=== PATIENT | female | born 1950 | race Two or more races ===

== ENCOUNTER → 2016-05-29 | Outpatient (CLI) | payer MEDICARE ==
[2016-05-29 10:01] LABS: Basophils # (auto) 0.1 uL; Basophils % (auto) 0.6 % (0.0-2.0); Eosinophils # (auto) 0.4 uL; Eosinophils % (auto) 4.7 % (0.0-7.0); Hematocrit 40.7 % (36.0-46.0); Hemoglobin 13.4 g/dL (12.2-16.2); Lymphocytes % (auto) 23.2 % (10.0-50.0); Mean Corpuscular Hemoglobin 29.1 pg (28.0-32.0); Mean Corpuscular Volume 88.2 fL (80.0-100.0); Mean Platelet Volume 8.7 fL (7.4-10.4); Monocytes # (auto) 0.7 uL; Monocytes % (auto) 7.9 % (0.0-12.0); Neutrophils # (auto) 5.4 uL; Neutrophils % (auto) 63.6 % (37.0-80.0); Platelet Count (auto) 311 10^3/uL (140-450); Red Cell Distribution Width 14.6 % (11.6-16.0); White Blood Cell 8.4 10^3/uL (4.4-10.8)
[2016-05-29 10:10] LABS: Albumin 3.6 g/dL (3.4-5.0); BUN/Creatinine Ratio 16.7; Bilirubin, Total 0.4 mg/dL (0.2-1.0); Calcium 8.9 mg/dL (8.5-10.1); Potassium 3.4 mmol/L (3.5-5.1); Total Protein 7.7 g/dL (6.4-8.2)
[2016-05-29 10:37] LABS: Urine Bilirubin Negative (Negative); Urine Blood Negative /uL (Negative); Urine Color Yellow (Yellow); Urine Glucose Normal (Normal); Urine Ketone Negative (Negative); Urine Mucus FEW (None Seen); Urine Nitrite Negative (Negative); Urine RBC <1 /hpf (0 - 4); Urine Squamous Epithelial Cell FEW /hpf (<5); Urine Urobilinogen Normal (Negative)
== END | disposition home or self-care (01) ==
LOC: LAB 08:32
PROVIDERS: ATTEND Internal Medicine
DX: E78.00 Pure hypercholesterolemia, unspecified (principal); I10 Essential (primary) hypertension; N18.3 Chronic kidney disease, stage 3 (moderate); Z00.00 Encounter for general adult medical examination without abnormal findings
CPT/HCPCS: 36415; 80053; 80061; 81001; 83615; 84443; 85025

== ENCOUNTER → 2016-06-07 | Outpatient (CLI) | payer MEDICARE | END | disposition home or self-care (01) | LOC: LAB 17:00 | PROVIDERS: ATTEND Internal Medicine | DX: Z00.00 Encounter for general adult medical examination without abnormal findings (principal); E78.00 Pure hypercholesterolemia, unspecified; I10 Essential (primary) hypertension; N18.3 Chronic kidney disease, stage 3 (moderate) | CPT/HCPCS: 82270 ==

== ENCOUNTER 2020-02-01 11:28 | Inpatient (IN) | payer MEDICARE, OTHER ==
[~2020-02-01] VITALS: Ht 162.6 cm; Wt 61.7 kg
[2020-02-01] MEDS ORDERED: methylPREDNISolone SOD SUCC 125 MG/2 ML VL IV ONE (11:45)
[2020-02-01 15:09] LABS: Basophils # (auto) 0 10 ^3/uL (0-0.2); Basophils % (auto) 0.1 % (0.0-2.0); Eosinophils # (auto) 0 10 ^3/uL (0-0.8); Hematocrit 40.6 % (36.0-46.0); Hemoglobin 13.6 g/dL (12.2-16.2); Lymphocytes # (auto) 0.5 10 ^3/uL (0.4-5.4); Lymphocytes % (auto) 6.1 % (10.0-50.0); Mean Corpuscular Hemoglobin 29.6 pg (28.0-32.0); Mean Corpuscular Hgb Conc. 33.6 g/dL (32.0-36.0); Mean Corpuscular Volume 88.2 fL (80.0-100.0); Monocytes # (auto) 0.3 10 ^3/uL (0-1.3); Monocytes % (auto) 4.1 % (0.0-12.0); Neutrophils % (auto) 89.7 % (37.0-80.0); Nucleated Red Blood Cells % 0.1 %; Platelet Count (auto) 213 10^3/uL (140-450); Red Cell Distribution Width 13.9 % (11.8-14.3); White Blood Cell 7.9 10^3/uL (4.4-10.8)
[2020-02-01 15:37] LABS: Albumin 3.1 g/dL (3.4-5.0); BUN/Creatinine Ratio 12.5; Bilirubin, Total 0.4 mg/dL (0.2-1.0); CRP High Sensitivity 5.98 mg/dL (< 0.3); Calcium 8.2 mg/dL (8.5-10.1); Potassium 3.8 mmol/L (3.5-5.1); Total Protein 7.7 g/dL (6.4-8.2)
[2020-02-02] MEDS ORDERED: MORPHINE SULF INJ 2 MG/ML SYRINGE 1ML IV PRN (00:15)
[2020-02-02] MEDS ORDERED: ALBUTEROL SULF 2.5 MG/0.5ML(0.5%) NEB SOLN NEB PRN (00:15)
[2020-02-02] MEDS ORDERED: ONDANSETRON HCL 4 MG/2 ML VIAL IV PRN (00:15)
[2020-02-02] MEDS ORDERED: hydrALAZINE HCL 20 MG/ML VL IV PRN (00:15)
[2020-02-02] MEDS ORDERED: IOHEXOL 350 MG/ML 100ML IJ ONE (00:34)
[2020-02-02 07:46] LABS: Basophils # (auto) 0 10 ^3/uL (0-0.2); Basophils % (auto) 0.1 % (0.0-2.0); Eosinophils # (auto) 0 10 ^3/uL (0-0.8); Hematocrit 41.3 % (36.0-46.0); Hemoglobin 13.9 g/dL (12.2-16.2); Lymphocytes # (auto) 0.8 10 ^3/uL (0.4-5.4); Lymphocytes % (auto) 17.2 % (10.0-50.0); Mean Corpuscular Hemoglobin 29.3 pg (28.0-32.0); Mean Corpuscular Hgb Conc. 33.6 g/dL (32.0-36.0); Mean Corpuscular Volume 87.2 fL (80.0-100.0); Monocytes # (auto) 0.4 10 ^3/uL (0-1.3); Monocytes % (auto) 9.2 % (0.0-12.0); Neutrophils # (auto) 3.4 10 ^3/uL (1.6-8.6); Neutrophils % (auto) 73.5 % (37.0-80.0); Nucleated Red Blood Cells % 0.1 %; Platelet Count (auto) 221 10^3/uL (140-450); Red Blood Cells 4.74 10^6/uL (4.0-5.20); Red Cell Distribution Width 13.9 % (11.8-14.3); White Blood Cell 4.6 10^3/uL (4.4-10.8)
[2020-02-02 08:07] LABS: Albumin 2.9 g/dL (3.4-5.0); BUN/Creatinine Ratio 21.3; Calcium 9.1 mg/dL (8.5-10.1); Potassium 4.1 mmol/L (3.5-5.1)
[2020-02-02 08:11] LABS: Bilirubin, Total 0.3 mg/dL (0.2-1.0); Total Protein 7.5 g/dL (6.4-8.2)
[2020-02-02] MEDS: ASCORBIC ACID 1,000 MG TAB PO SCH (09:18)
[2020-02-02] MEDS: ENOXAPARIN SOD 40 MG/0.4 ML SYRINGE SC SCH (09:18)
[2020-02-02] MEDS: ZINC SULFATE 220mg CAP or TAB PO SCH (09:18)
[2020-02-02] MEDS: DexAMETHasone SOD PHOS 10MG/1ML VIAL INJ IV SCH ×2 (09:18→21:45)
[2020-02-02] MEDS: ASPirin-EC 81 mg tab PO SCH (09:18)
[2020-02-02] MEDS: CHOLECALCIFEROL (VITD3) 2,000 UNIT CAP PO SCH (09:18)
[2020-02-02] MEDS: cefTRIAXone 1GM/50ML D5W 50 ML IV SCH (09:19)
[2020-02-02] MEDS: AZITHROMYCIN 500MG/ 250ML 250 ML IV SCH (09:19)
[2020-02-02 09:28] VITALS: BP 137/65
[2020-02-02] MEDS ORDERED: [UNRECOGNIZED DRUG - REMARK] PO SCH (10:00)
[2020-02-02] MEDS: ALBUTEROL SULF HFA 90MCG INH 200DOSE IN SCH ×2 (14:36→21:19)
[2020-02-02] MEDS ORDERED: REMDESIVIR 200 MG in NS 210ml LOADING DOSE ADULT IV ONE (17:00)
[2020-02-02] MEDS: ATORVASTATIN 20 MG TAB PO SCH (21:45)
[2020-02-03] VITALS (14 sets, daily range): BP systolic 115–137; BP diastolic 64–90
[2020-02-03] MEDS ORDERED: ATEN25TA PO (02:36)
[2020-02-03] MEDS ORDERED: ATOR10TA52 PO (02:36)
--- NOTE | 2020-02-03 02:50 | NUR ---
ADMITTED PATIENT FROM THE ER, AAOX4. NO DISTRESS NOTED. AFEBRILE. MILD SOB NOTED AT REST. DENIES ANY PAIN NOW. MILD BLE WEAKNESS NOTED. ORIENTATION GIVEN. ROUTINE ADMISSION DONE BY BOUBACAR TAN. POCS DISCUSSED WITH PATIENT AND SHOWED UNDERSTANDING. BED KEPT ON LOWEST POSITION AND SIDE RAILS UP. CALL LIGHT/ TABLE IN REACH. KEPT COMFORTABLE.
[2020-02-03] MEDS ORDERED: INFLUENZA QUAD 2020-2021 0.5 ML SYRG IM ONE (03:30)
--- NOTE | 2020-02-03 05:00 | NUR ---
PATIENT VERIFIED THAT INFORMED CONSENT WAS OBTAINED BY MD CRESPO. BENEFITS AND CONSEQUENCES OF RECEIVING CONVALESCENT EXPLAINED TO PATIENT AND SHOWED UNDERSTANDING. CONVALESCENT PLASMA PROTOCOL COMPLETED PRIOR TO TRANSFUSION. SPOKE WITH BLOOD BANK, RE: CONVALESCENT PLASMA TRANSFUSION.
--- NOTE | 2020-02-03 05:35 | NUR ---
CONVALESCENT PLASMA TRANSFUSION STARTED. HOSPITAL POLICY OBSERVED. EDUCATION REINFORCED TO THE PATIENT. WILL KEEP AN EYE ON PATIENT.
[2020-02-03] MEDS: ALBUTEROL SULF HFA 90MCG INH 200DOSE IN SCH ×3 (06:58→21:45)
--- NOTE | 2020-02-03 07:50 | NUR ---
CONVALESCENT PLASMA TRANSFUSION ENDED. V/S WNL, NO S/S OF DISTRESS, PATIENT TOLERATED WELL.
[2020-02-03 09:00] LABS: Calcium 8.8 mg/dL (8.5-10.1); Potassium 3.4 mmol/L (3.5-5.1)
[2020-02-03 09:08] LABS: BUN/Creatinine Ratio 31.1; Bilirubin, Total 0.3 mg/dL (0.2-1.0); CRP High Sensitivity 2.51 mg/dL (< 0.3); Total Protein 7.3 g/dL (6.4-8.2)
[2020-02-03] MEDS: AZITHROMYCIN 500MG/ 250ML 250 ML IV SCH (10:00)
[2020-02-03 10:08] LABS: Basophils # (auto) 0 10 ^3/uL (0-0.2); Basophils % (auto) 0.1 % (0.0-2.0); Eosinophils # (auto) 0 10 ^3/uL (0-0.8); Hematocrit 39.4 % (36.0-46.0); Lymphocytes # (auto) 0.8 10 ^3/uL (0.4-5.4); Mean Corpuscular Hemoglobin 28.8 pg (28.0-32.0); Mean Corpuscular Hgb Conc. 32.9 g/dL (32.0-36.0); Mean Corpuscular Volume 87.6 fL (80.0-100.0); Monocytes % (auto) 6.6 % (0.0-12.0); Neutrophils # (auto) 13.3 10 ^3/uL (1.6-8.6); Neutrophils % (auto) 88.3 % (37.0-80.0); Nucleated Red Blood Cells % 0.1 %; Platelet Count (auto) 279 10^3/uL (140-450); White Blood Cell 15.1 10^3/uL (4.4-10.8)
[2020-02-03] MEDS: DexAMETHasone SOD PHOS 10MG/1ML VIAL INJ IV SCH ×2 (10:47→21:59)
[2020-02-03] MEDS: ASPirin-EC 81 mg tab PO SCH (10:49)
[2020-02-03] MEDS: ENOXAPARIN SOD 40 MG/0.4 ML SYRINGE SC SCH (10:49)
[2020-02-03] MEDS: CHOLECALCIFEROL (VITD3) 2,000 UNIT CAP PO SCH (10:49)
[2020-02-03] MEDS: ZINC SULFATE 220mg CAP or TAB PO SCH (10:49)
[2020-02-03] MEDS: ASCORBIC ACID 1,000 MG TAB PO SCH (10:49)
[2020-02-03] MEDS: cefTRIAXone 1GM/50ML D5W 50 ML IV SCH (10:50)
[2020-02-03] MEDS: REMDESIVIR 100mg in NS 230ml DAILYx4DAYS (NO VENT) IV SCH (17:21)
--- NOTE | 2020-02-03 17:30 | NUR ---
Patient home O2 delivered to bedside.
--- NOTE | 2020-02-03 17:36 | NUR ---
PRE REMDESIVIR V/S 98.2 TEMP 80 HR 20 RR 94% 134/87 B/P 15 REMDESIVIR V/S 128/74 B/P 75 HR 97.6 TEMP 97% RR19 NO S/S OF DISTRESS NOTED.
--- NOTE | 2020-02-03 18:25 | NUR ---
POST REMDESIVIR 129/79 66 HR 95% TEMP 97.9 RR 19 NO S/S OF DISTRESS NOTED.
--- NOTE | 2020-02-03 19:30 | NUR ---
remdesivir v/s post infusion:hr-82,b/p-135/77,o2-95%,temp-98.6,rr-18 Addendum: 02/04/20 at 0726 by MAXIMINO PALMER RN remdesivir v/s 1 hour post infusion:hr-82,b/p-135/77,o2-95%,temp-98.6,rr-18
[2020-02-03] MEDS: ATORVASTATIN 20 MG TAB PO SCH (21:59)
[2020-02-04 05:00] VITALS: BP 140/84
[2020-02-04 05:52] LABS: Basophils # (auto) 0 10 ^3/uL (0-0.2); Basophils % (auto) 0.2 % (0.0-2.0); Eosinophils # (auto) 0 10 ^3/uL (0-0.8); Hematocrit 37.6 % (36.0-46.0); Hemoglobin 12.4 g/dL (12.2-16.2); Lymphocytes # (auto) 0.5 10 ^3/uL (0.4-5.4); Lymphocytes % (auto) 3.8 % (10.0-50.0); Mean Corpuscular Hemoglobin 28.9 pg (28.0-32.0); Mean Corpuscular Hgb Conc. 33.1 g/dL (32.0-36.0); Mean Corpuscular Volume 87.5 fL (80.0-100.0); Monocytes # (auto) 0.8 10 ^3/uL (0-1.3); Monocytes % (auto) 5.6 % (0.0-12.0); Neutrophils # (auto) 12.6 10 ^3/uL (1.6-8.6); Neutrophils % (auto) 90.4 % (37.0-80.0); Platelet Count (auto) 268 10^3/uL (140-450); Red Blood Cells 4.29 10^6/uL (4.0-5.20); Red Cell Distribution Width 13.9 % (11.8-14.3)
[2020-02-04 06:12] LABS: Albumin 2.7 g/dL (3.4-5.0); Calcium 8.3 mg/dL (8.5-10.1); Potassium 3.5 mmol/L (3.5-5.1)
[2020-02-04 06:20] LABS: BUN/Creatinine Ratio 38.6; Bilirubin, Total 0.4 mg/dL (0.2-1.0); CRP High Sensitivity 1.39 mg/dL (< 0.3); Total Protein 6.5 g/dL (6.4-8.2)
[2020-02-04] MEDS: ALBUTEROL SULF HFA 90MCG INH 200DOSE IN SCH ×3 (06:30→22:01)
--- NOTE | 2020-02-04 06:37 | NUR ---
END OF SHIFT NOTES WILL ENDORSE CARE TO DAY SHIFT RN,PT A0X4, NO S/S OF DISTRESS OR SOB
[2020-02-04 08:57] VITALS: BP 147/84
[2020-02-04] MEDS: ZINC SULFATE 220mg CAP or TAB PO SCH (09:59)
[2020-02-04] MEDS: ASPirin-EC 81 mg tab PO SCH (09:59)
[2020-02-04] MEDS: ENOXAPARIN SOD 40 MG/0.4 ML SYRINGE SC SCH (09:59)
[2020-02-04] MEDS: cefTRIAXone 1GM/50ML D5W 50 ML IV SCH (10:00)
[2020-02-04] MEDS: CHOLECALCIFEROL (VITD3) 2,000 UNIT CAP PO SCH (10:00)
[2020-02-04] MEDS: ASCORBIC ACID 1,000 MG TAB PO SCH (10:00)
[2020-02-04] MEDS: DexAMETHasone SOD PHOS 10MG/1ML VIAL INJ IV SCH ×2 (10:18→22:40)
[2020-02-04] MEDS: AZITHROMYCIN 500MG/ 250ML 250 ML IV SCH (11:00)
[2020-02-04 13:00] VITALS: BP 144/78
[2020-02-04 17:00] VITALS: BP 138/75
[2020-02-04] MEDS: REMDESIVIR 100mg in NS 230ml DAILYx4DAYS (NO VENT) IV SCH (17:29)
--- NOTE | 2020-02-04 17:45 | NUR ---
1728-Pre Remdesivir v/s 98.1 temp 68 hr 18 rr 93% 138/75 1745-15 -Minute Remdesivir v/s 132/77 b/p 68 hr 18 rr 98.2 temp 96%
--- NOTE | 2020-02-04 18:30 | NUR ---
POST REMDESIVIR V/S 120/72 B/P 98.0 TEMP 95% 77HR 16 RR NO S/S OF DISTRESS NOTED.
--- NOTE | 2020-02-04 19:30 | NUR ---
Remdesivir v/s 1 hour post infusion:hr-82,b/p-142/84,o2-93%,temp-97.8,rr-20
[2020-02-04 21:47] VITALS: BP 142/84
[2020-02-04] MEDS: ATORVASTATIN 20 MG TAB PO SCH (22:40)
[2020-02-05] VITALS (7 sets, daily range): BP systolic 130–147; BP diastolic 73–83
--- NOTE | 2020-02-05 06:38 | NUR ---
END OF SHIFT NOTES WILL ENDORSE CARE TO DAY SHIFT RN,PT A0X4, NO S/S OF DISTRESS OR SOB
[2020-02-05] MEDS: ALBUTEROL SULF HFA 90MCG INH 200DOSE IN SCH ×3 (07:15→22:35)
[2020-02-05] MEDS: DexAMETHasone SOD PHOS 10MG/1ML VIAL INJ IV SCH ×2 (09:21→20:55)
[2020-02-05] MEDS: cefTRIAXone 1GM/50ML D5W 50 ML IV SCH (09:21)
[2020-02-05] MEDS: ENOXAPARIN SOD 40 MG/0.4 ML SYRINGE SC SCH (09:22)
[2020-02-05] MEDS: ASCORBIC ACID 1,000 MG TAB PO SCH (09:22)
[2020-02-05] MEDS: ASPirin-EC 81 mg tab PO SCH (09:22)
[2020-02-05] MEDS: AZITHROMYCIN 500MG/ 250ML 250 ML IV SCH (10:17)
[2020-02-05] MEDS: CHOLECALCIFEROL (VITD3) 2,000 UNIT CAP PO SCH (10:17)
[2020-02-05] MEDS: ZINC SULFATE 220mg CAP or TAB PO SCH (10:17)
--- NOTE | 2020-02-05 10:43 | NUR ---
Nutrition Assessment Notes Please refer to link for full assessment notes. Est Energy needs: 5636-3829 kcals (20-23 kcal/kgBW) Est Protein needs: 62-68 gms/day (1.0-1.1 gm/kgBW) Will continue to monitor and reassess prn. Addendum: 02/05/20 at [address] Amended: Links added.
[2020-02-05] MEDS: REMDESIVIR 100mg in NS 230ml DAILYx4DAYS (NO VENT) IV SCH (16:56)
--- NOTE | 2020-02-05 16:56 | NUR ---
REMDESIVIR PRE REMDESIVIR V/S: 97.8 TEMP 76 HR 20 RR 95% 130/76 B/P 15 MINUTE REMDESIVIR V/S: 97.7 TEMP 69 HR 17 RR 95% 140/80 B/P NO S/S OF DISTRESS NOTED.
--- NOTE | 2020-02-05 18:10 | NUR ---
POST REMDESIVIR V/S 98.2 TEMP 69 HR 20 RR 96% 134/73 NO S/S OF DISTRESS NOTED
--- NOTE | 2020-02-05 19:06 | NUR ---
1 HR POST REMDESIVIR VS 97.8 TEMP 71 HR 20 RR 96% 137/81
[2020-02-05] MEDS: ATORVASTATIN 20 MG TAB PO SCH (20:54)
[2020-02-06 05:14] VITALS: BP 146/83
[2020-02-06] MEDS: ALBUTEROL SULF HFA 90MCG INH 200DOSE IN SCH ×2 (06:24→14:03)
--- NOTE | 2020-02-06 06:35 | NUR ---
END OF SHIFT NOTES WILL ENDORSE CARE TO DAY SHIFT RN,PT A0X4, NO S/S OF DISTRESS OR SOB
[2020-02-06 07:46] LABS: Basophils # (auto) 0 10 ^3/uL (0-0.2); Basophils % (auto) 0.1 % (0.0-2.0); Eosinophils # (auto) 0 10 ^3/uL (0-0.8); Hematocrit 35.3 % (36.0-46.0); Hemoglobin 11.9 g/dL (12.2-16.2); Lymphocytes # (auto) 0.5 10 ^3/uL (0.4-5.4); Lymphocytes % (auto) 5.4 % (10.0-50.0); Mean Corpuscular Hemoglobin 29.1 pg (28.0-32.0); Mean Corpuscular Hgb Conc. 33.7 g/dL (32.0-36.0); Mean Corpuscular Volume 86.3 fL (80.0-100.0); Monocytes # (auto) 0.7 10 ^3/uL (0-1.3); Monocytes % (auto) 7.5 % (0.0-12.0); Neutrophils # (auto) 8.7 10 ^3/uL (1.6-8.6); Platelet Count (auto) 282 10^3/uL (140-450); Red Blood Cells 4.09 10^6/uL (4.0-5.20); Red Cell Distribution Width 13.8 % (11.8-14.3)
[2020-02-06 08:00] VITALS: BP 150/78
[2020-02-06 08:06] LABS: Albumin 2.6 g/dL (3.4-5.0); BUN/Creatinine Ratio 37.2; Bilirubin, Total 0.3 mg/dL (0.2-1.0); Calcium 8.3 mg/dL (8.5-10.1); Potassium 3.7 mmol/L (3.5-5.1); Total Protein 6.1 g/dL (6.4-8.2)
[2020-02-06 09:00] VITALS: BP 150/71
[2020-02-06] MEDS: CHOLECALCIFEROL (VITD3) 2,000 UNIT CAP PO SCH (09:50)
[2020-02-06] MEDS: cefTRIAXone 1GM/50ML D5W 50 ML IV SCH (09:50)
[2020-02-06] MEDS: DexAMETHasone SOD PHOS 10MG/1ML VIAL INJ IV SCH (09:50)
[2020-02-06] MEDS: ZINC SULFATE 220mg CAP or TAB PO SCH (09:50)
[2020-02-06] MEDS: ASCORBIC ACID 1,000 MG TAB PO SCH (09:50)
[2020-02-06] MEDS: ASPirin-EC 81 mg tab PO SCH (09:50)
[2020-02-06] MEDS: ENOXAPARIN SOD 40 MG/0.4 ML SYRINGE SC SCH (09:51)
[2020-02-06] MEDS: AZITHROMYCIN 500MG/ 250ML 250 ML IV SCH (11:11)
[2020-02-06 13:00] VITALS: BP 152/88
[2020-02-06 14:21] VITALS: BP 145/86
[2020-02-06] MEDS: REMDESIVIR 100mg in NS 230ml DAILYx4DAYS (NO VENT) IV SCH (15:11)
--- NOTE | 2020-02-06 15:11 | NUR ---
REMDESIVIR PRE REMDESIVIR V/S: 97.9 TEMP 78 HR 20 RR 94% 153/86 B/P 15 MINUTE REMDESIVIR V/S: 97.7 TEMP 77 HR 19 RR 95% 150/86 B/P NO S/S OF DISTRESS NOTED.
--- NOTE | 2020-02-06 16:19 | NUR ---
POST REMDESIVIR V/S 97.9 TEMP 80 HR 20 RR 96% 150/91 NO S/S OF DISTRESS NOTED
[2020-02-06 16:44] VITALS: BP 145/76
[2020-02-06] MEDS ORDERED: INFLUENZA QUAD 2020-2021 0.5 ML SYRG IM ONE (17:16)
--- NOTE | 2020-02-06 17:19 | NUR ---
1 HOUR POST REMDESIVIR VITALS 97.9 TEMP 79 HR 19 RR 95% 146/82
--- NOTE | 2020-02-06 17:30 | NUR ---
Discharge instructions given as ordered. Encourage to follow up with PMD as instructed. Unable to schedule appointment due to weekend, patient provided with phone number to call for appointment. All questions and concerns addressed. Patient verbalized understanding. Medication reconciliation form completed and copy given to patient. Home 02 delivered bedside and sent home with patient. No home medications held in Pharmacy, and needed vaccines not given as told by charge out clerk to hold flu vaccine when covid positive. IV removed with catheter intact and pressure dressing applied. Telemetry unit returned to ICU. Patient taken to vehicle via wheelchair with all personal belongings, accompanied by staff member. No distress noted at time of departure.
== END 2020-02-06 17:30 | disposition home health service (06) | DRG 177 ==
LOC: EDBD 11:28 → ER 11:28 → TELE 11:29 → TELE-CENTR 02-03 02:28
PROVIDERS: ADMIT Hospitalist; ATTEND Hospitalist
PROC: XW033E5 Introduction of Remdesivir Anti-infective into Peripheral Vein, Percutaneous Approach, New Technology Group 5 (ICD-10-PCS; principal; 2020-02-02)
PROC: XW13325 Transfusion of Convalescent Plasma (Nonautologous) into Peripheral Vein, Percutaneous Approach, New Technology Group 5 (ICD-10-PCS; 2020-02-03)
DX: U07.1 COVID-19 (principal); J96.01 Acute respiratory failure with hypoxia; J12.89 Other viral pneumonia; N17.0 Acute kidney failure with tubular necrosis; I24.8 Other forms of acute ischemic heart disease; E78.5 Hyperlipidemia, unspecified; N18.9 Chronic kidney disease, unspecified; I12.9 Hypertensive chronic kidney disease with stage 1 through stage 4 chronic kidney disease, or unspecified chronic kidney disease; R79.89 Other specified abnormal findings of blood chemistry; Z90.710 Acquired absence of both cervix and uterus; Z79.899 Other long term (current) drug therapy
CPT/HCPCS: 36415; 71045; 71275; 80053; 82728; 83605; 83615; 84484; 85025; 85379; 86141; 86850; 86900; 86901; 87040; 87426; 94640; 97163; G0378; J0696; J1100

== ENCOUNTER 2024-02-14 06:09 | Inpatient (IN) | payer OTHER ==
[2024-02-14] VITALS (9 sets, daily range): BP systolic 117–136; BP diastolic 53–78; PULSE 60–67; RESP 16–18; TEMP 97.5–98.4; O2SAT 95–98
[~2024-02-14] VITALS: Ht 162.6 cm; Wt 67.0 kg
[~2024-02-14 06:09] MED LIST: ATEN25TA PO; ATOR10TA52 PO; LEVO-848 PO
[2024-02-14] MEDS ORDERED: HEPARIN SODIUM (PORCINE) 5000 UNITS/ML 1ML VIAL ONE ×2 (06:16→07:01)
[2024-02-14] MEDS: HEPARIN SODIUM (PORCINE) 5000 UNITS/ML 1ML VIAL SC ONE (07:00)
[2024-02-14] MEDS ORDERED: fentaNYL CITRATE 100 MCG/2 ML VL ONE (07:27)
[2024-02-14] MEDS ORDERED: GLYCOPYRROLATE 0.2 MG/ML 1ML VIAL ONE (07:27)
[2024-02-14] MEDS ORDERED: DexAMETHasone SOD PHOS 10MG/1ML VIAL INJ ONE (07:27)
[2024-02-14] MEDS ORDERED: HYDROmorphone HCL 2 MG/ML VL/or syr ONE (07:27)
[2024-02-14] MEDS ORDERED: ROCURONIUM 10MG/ML 10ML VIAL IV ONE (07:27)
[2024-02-14] MEDS ORDERED: MIDAZOLAM HCL 2MG/2ML 2ml VIAL (1mg/ml) ONE (07:27)
[2024-02-14] MEDS ORDERED: ONDANSETRON HCL 4 MG/2 ML VIAL ONE (07:27)
[2024-02-14] MEDS ORDERED: LIDOCAINE 2% (LOCAL ANESTH.) PF 5ml SDV ONE (07:27)
[2024-02-14] MEDS ORDERED: PROPOFOL 10 MG/ML 20 ML IV ONE (07:27)
[2024-02-14] MEDS ORDERED: ONDANSETRON HCL 4 MG/2 ML VIAL IV ONE (07:30)
[2024-02-14] MEDS: cefOXitin 2GM/100ML 100 ML IV ONE (07:41)
[2024-02-14] MEDS: BUPIVACAINE 0.25% INJ 50ML VIAL ONE (07:55)
[2024-02-14] MEDS: LIDOCAINE 1% HCL (LOCAL ANESTH.) INJ 20ML MDV ONE (07:55)
[2024-02-14] MEDS ORDERED: SUGAMMADEX 200mg/2ml Vial (100MG/ML) IV ONE (08:32)
--- NOTE | 2024-02-14 10:14 | DVHOP ---
DATE OF SURGERY: 02/14/2024 PREOPERATIVE DIAGNOSIS: Perforated appendicitis. POSTOPERATIVE DIAGNOSIS: Perforated appendicitis. PROCEDURE: Laparoscopic lysis of adhesions, reduction of internal hernia and appendectomy. SURGEON: Clive Yoo MD ELECTRICIAN MAINTENANCE: None. ANESTHESIOLOGIST: Dr. Mckeon. ANESTHESIA: General by means of endotracheal intubation. INTRAOPERATIVE FINDINGS: Thickened dilated appendix with a decompressed portion/space. Found numerous significant adhesions involving the appendix against the surface of the bladder as well as small intestine adherent to the distal aspect of the appendix causing an internal hernia. ESTIMATED BLOOD LOSS: Minimal. INTRAVENOUS FLUIDS: Per anesthesia charting. Urine output not recorded given Fagan catheter was not inserted. DRAINS: A 19 Tony drain. IMPLANTS: Endo-CB mckayla. SPECIMEN: Appendix. COMPLICATIONS: None, other than difficult procedure secondary to above-mentioned intraoperative findings adding complexity as well as time to an otherwise routine procedure. DISPOSITION: Procedure is well tolerated and transferred to recovery room in stable condition. INDICATION FOR PROCEDURE: Ms. Hogue is a 74-year-old female who presented to [facility] secondary to abdominal pain. She was diagnosed with perforated appendicitis. The abscess was not amenable for drainage. Therefore, she was treated with intravenous antibiotic therapy. She successfully responded to intravenous antibiotic therapy. Followup CT scan as outpatient demonstrated complete resolution of inflammatory changes or abscesses. Therefore, she was electively scheduled for an interval laparoscopic appendectomy, possible laparotomy if required. The procedure, risks and benefits were explained in a detailed and extensive fashion. She was made aware of potential complications such as bleeding, infection, injury to internal organs, blood vessels and/or nerves chronic pain, future bowel obstructions as well as other complications. All questions were answered. She understood and agreed to proceed. DESCRIPTION OF PROCEDURE: The patient was taken to the operating room. She was placed in the dorsal decubitus position on the operating table. Once adequate anesthesia was achieved, the left arm was tucked to her side, paying careful attention on providing adequate positioning as well as padding to prevent any potential injuries. The abdomen and pelvis were draped in the usual sterile fashion. She received prophylactic antibiotics as well as prophylactic heparin. My attention was directed towards the periumbilical region where local anesthesia consisting of 1% lidocaine, 0.25% Marcaine was infiltrated. The abdominal wall was retracted anteriorly by means of towel clamps and a Veress needle was inserted into the abdominal cavity. Pneumoperitoneum of 15 mmHg was achieved. At this time, attention was directed to the epigastric region where local anesthesia was injected in the area of interest. An 12 mm incision was made and a 12 mm trocar was placed. A 5 mm 30-degree laparoscope was inserted into the abdominal cavity. A thorough survey of the abdominal cavity did not reveal any evidence of injury or bleeding upon entry. The Veress needle was removed under direct laparoscopic visualization. My attention was directed towards the left side of the abdomen where 5 mm trocars x2 were placed with preemptive local anesthesia as well as under direct laparoscopic visualization. At this time, the patient was placed in the reverse Trendelenburg and airplaned towards the left side exposing the right lower quadrant region. The patient was noted to have significant amount of adhesions involving the distal appendix of the bladder as well as a portion of small intestine against the distal aspect of the appendix. The appendix was extremely dilated up to the distal two-thirds with decompression of the proximal third. Incidentally, it was noted that the patient also had a ventral hernia. The appendix was carefully dissected from the terminal ileum as well as the bladder without injury. This added significant complexity as well as time to the procedure. There were further adhesions involving the small intestine against the bladder, which required to be taken down in order to prevent any potential obstructive process in the future from an internal hernia. These adhesions were carefully dissected with EndoShears without injury to the bladder or small intestine. The appendix was retracted anteriorly and using a 60 mm Endo-CB stapler with a white cartridge, the mesoappendix and appendix were divided at the base. The appendix was placed in an EndoCatch bag and exteriorized via the epigastric trocar site. A 12 mm trocar was replaced. I directed my attention to inspecting the right lower quadrant region. The area was copiously irrigated. All the fluid was evacuated. The small bowel was inspected carefully. There was no evidence of injury. A 19 Tony drain was placed in the right lower quadrant region, pelvic cul-de-sac and exteriorized via the left lower quadrant trocar site. It was secured to the skin by means of a 2-0 silk suture. The epigastric fascial defect was closed with #1 Vicryl and Celso-Monica device in a [id number] fashion under direct laparoscopic visualization. The abdominal cavity was inspected for any injury or bleeding. None was identified. At this time, the remaining laparoscopic equipment was removed from the patient. The wounds were washed and dried. The skin was closed with 4-0 Monocryl in a subcuticular fashion. Sterile dressings were applied. The patient tolerated well procedure. There were no complications. She was successfully extubated in the operating room and transferred to recovery room in stable condition. MD BRET Roa/MAYO TID: [id number] RECEIPT: [id number]
[2024-02-14] MEDS: HYDROmorphone HCL 2 MG/ML VL/or syr IV PRN (10:15)
[2024-02-14] MEDS ORDERED: SODIUM CHLORIDE 0.9% 1,000 ML IV ONE (12:45)
--- NOTE | 2024-02-14 13:39 | DVH ---
BILATERAL LOWER EXTREMITY VENOUS DOPPLER CLINICAL HISTORY: RULE OUT DVT Technique: Duplex Doppler evaluation of the deep venous systems of both lower extremities from the co mmon femoral veins to the popliteal veins including color Doppler and spectral/pulsed waveform analys is was performed. COMPARISON: None FINDINGS: The right and left common femoral, superficial femoral, popliteal, posterior tibial veins appear pa tent with normal augmentation, phasicity, compressibility and color-flow. IMPRESSION: 1. There is no sonographic evidence for DVT in the lower extremities. HS:Y
[2024-02-14] MEDS ORDERED: NITROGLYCERIN 0.4 MG SL TAB SL PRN (13:45)
[2024-02-14] MEDS ORDERED: HYDROcodone-ACET 5/325MG TAB PO PRN (13:45)
[2024-02-14] MEDS ORDERED: MORPHINE SULFATE INJ 2 MG/ml SYRG IV PRN ×2 (13:45)
[2024-02-14] MEDS ORDERED: SODIUM CHLORIDE 0.9% 1,000 ML IV SCH (13:45)
[2024-02-14] MEDS ORDERED: ONDANSETRON HCL 4 MG/2 ML VIAL IV PRN (13:45)
[2024-02-14] MEDS ORDERED: IOHEXOL 350 MG/ML 100ML IJ ONE (14:17)
--- NOTE | 2024-02-14 14:58 | DVH ---
CLINICAL INFORMATION: 74 years old, Female; rule out pulmonary embolism. No other clinical informat ion provided. TECHNIQUE: Axial CTA images of the chest were obtained after the uneventful administration of 100 mL of Omnipaque 350 IV contrast. Coronal and sagittal reformatted images and MIP images were obtained, reviewed, and stored. One or more of the following dose reduction techniques were used: Automated exp osure control. Adjustment of mA and/or kV according to patient size. CTDIvol = 22.81, 14.8, 0.07, 0.07 mGy DLP = 634.77 mGy-cm COMPARISON: CT ANGIO CHEST CONTRAST on DOS: 02/02/20 FINDINGS: Pulmonary arteries: No central or lobar pulmonary embolism. Evaluation for segmental or subsegmental pulmonary emboli is limited due to respiratory motion artifact. Aorta: No aneurysm or dissection. Cardiac: Mild cardiomegaly. Gplr-[id number]-swqqruax coronary artery calcification. Mediastinum/urvashi: No mass or adenopathy. Lungs: Respiratory motion artifact limits evaluation. Atelectasis and possible consolidations in the dependent portions of the lower lobes. Scattered ground-glass opacities. Chest wall: Visualized portions of the chest wall appear unremarkable. Upper abdomen: Visualized structures in the upper abdomen are unremarkable, although evaluation of th e parenchymal organs is limited on arterial phase images. Bones: No fracture or suspicious intraosseous lesions. IMPRESSION: 1. No central or lobar pulmonary embolism. Evaluation for segmental or subsegmental pulmonary emboli is limited due to respiratory motion artifact. 2. Mild cardiomegaly. 3. Atelectasis and/or consolidations in the lower lobes and scattered ground-glass opacities, may be infectious or inflammatory in nature or due to pulmonary edema in the appropriate clinical setting. Cristian orrelate with clinical findings. 4. Additional findings as detailed above
[2024-02-14 15:07] LABS: Chloride 105 mmol/L (98-107); Potassium 4.1 mmol/L (3.5-5.1); Sodium 139 mmol/L (136-145)
[2024-02-14 15:08] LABS: Anion Gap 7 (5-15); Carbon Dioxide 27 mmol/L (20-31)
[2024-02-14 15:09] LABS: Calcium 8.9 mg/dL (8.7-10.4)
[2024-02-14 15:13] LABS: BUN/Creatinine Ratio 20.2 (10.0-20.0); Blood Urea Nitrogen 18 mg/dL (9-23)
[2024-02-14 15:18] LABS: Glucose 148 mg/dL (74-106)
--- NOTE | 2024-02-14 15:26 | DVHHP2 ---
History of Present Illness Reason for Visit: Elective interval laparoscopic appendectomy. History of Present Illness 74-year-old female with a known history of hypertension, dyslipidemia, hypothyroidism, recent hospitalization at [facility] for perforated appendicitis with abscess which was not amenable for drainage was treated with the IV antibiotics which resolved. Patient's was found to have C diff colitis as well which was treated previously. Patient was brought by General surgery for elective procedure for interval appendectomy laparoscopic which was done yesterday. Postprocedure patient was desatting eventually patient was recommended to be observed. Patient's denies any chest pain shortness of breath. Cardiovascular: HTN, hyperipidemia Past Surgical History: Appendectomy Family History: None Smoke: No ALCOHOL: none Review of Systems Review of Systems Twelve review of system are negative besides mentioned above. Allergies: Coded Allergies: NO KNOWN ALLERGIES (Unverified , 10/23/09) Medications Current Medications Medications Dose Ordered Sig/Nneka Route Start Time Stop Time Status Last Admin Dose Admin Atenolol 25 mg DAILY PO 02/15/24 10:00 Levothyroxine Sodium 50 mcg QAM PO 02/15/24 07:00 Atorvastatin Calcium 10 mg HS PO 02/14/24 22:00 Sodium Chloride 1,000 ml @ 120 mls/hr Q8H20M IV 02/14/24 13:45 Acetaminophen/ Hydrocodone Bitart 1 tab Q4HP PRN PO 02/14/24 13:45 Ondansetron HCl 4 mg Q4HP PRN IV 02/14/24 13:45 Enoxaparin Sodium 40 mg DAILY SC 02/15/24 10:00 Acetaminophen 650 mg Q6HP PRN PO 02/14/24 13:45 Morphine Sulfate 2 mg Q4HPRN PRN IV 02/14/24 13:45 Nitroglycerin 0.4 mg Q5MINP PRN SL 02/14/24 13:45 Morphine Sulfate 2 mg Q30M PRN IV 02/14/24 13:45 Exam Vital Signs Vital Signs Date Time Temp Pulse Resp B/P (MAP) Pulse Ox O2 Delivery O2 Flow Rate FiO2 02/14/24 13:12 59 14 125/62 (83) 99 02/14/24 08:57 Mask 4.0 64 02/14/24 08:57 96.7 96.7 Exam HEENT pupils are reactive Neck is supple CV is S1-S2 regular rate and rhythm Respiratory bilateral clear GI positive bowel sound Extremity no edema WHEAT CLEANER no motor deficit. Labs/Xrays Labs Test 02/14/24 14:30 Range/Units Sodium Level 139 136-145 mmol/L Potassium Level 4.1 3.5-5.1 mmol/L Chloride Level 105 98-107 mmol/L Carbon Dioxide Level 27 20-31 mmol/L Anion Gap 7 5-15 Blood Urea Nitrogen 18 9-23 mg/dL Creatinine 0.89 0.550-1.02 mg/dL Glomerular Filtration Rate Calc 68 >90 mL/min BUN/Creatinine Ratio 20.2 H 10.0-20.0 Serum Glucose 148 H 74-106 mg/dL Calcium Level 8.9 8.7-10.4 mg/dL Assessment/Plan Assessment/Plan 73-year-old female with a known history of hypertension, dyslipidemia, hypothyroidism, recent hospitalization at [facility] for perforated appendicitis with abscess was managed with the IV antibiotics, recent C diff treatment presented to the hospital as an elective procedure. 1. Acute hypoxic respiratory failure rule out pulmonary embolism, rule out DVT 2. Status post laparoscopic interval appendectomy 3. Hypertension 4. Dyslipidemia 5. Hypothyroidism -CT angio to rule out PE, Doppler venous rule out DVT we will assess for home oxygen requirement if needed. Plan discussed with: Patient, Spouse, Daughter My Orders Orders - ASHANTI ISAAC MD Procedure Category Date Status Time Advance Diet As TIMBO 02/14/24 In Process Tolerated 12:33 Atenolol Tablet PHA 02/15/24 In Process (Tenormin Tablet) 10:00 Levothyroxine Tablet PHA 02/15/24 In Process (Synthroid Tablet) 07:00 Atorvastatin (Lipitor) PHA 02/14/24 In Process 22:00 Bilat Lower Dvt US 02/14/24 Resulted 12:36 Sodium Chloride 0.9% PHA 02/14/24 In Process 12:45 Admit ADMIT 02/14/24 Transmitted 13:37 Code Status CODE 02/14/24 Transmitted 13:37 Sodium Chloride 0.9% PHA 02/14/24 In Process 13:45 Hydrocodone-Acet PHA 02/14/24 In Process 5/325mg Tab ([place] 13:45 Ondansetron Hcl PHA 02/14/24 In Process (Zofran) 13:45 Enoxaparin Sodium PHA 02/15/24 In Process (Lovenox) 10:00 Condition: Stable TIMBO 12/6/24 In Process 13:37 Acetaminophen Tablet PHA 02/14/24 In Process (Tylenol Tablet) 13:45 Clear Liq Diet DIET 02/14/24 Transmitted Dinner Morphine Sulfate PHA 02/14/24 In Process Injection 13:45 Nitroglycerin PHA 02/14/24 In Process Sublingual (Ntrostat 13:45 Morphine Sulfate PHA 02/14/24 In Process Injection 13:45 Stat Ekg For Chest TIMBO 02/14/24 In Process Pain 13:37 Notify Md Of Changes BANNER 02/14/24 In Process From Base 13:37 Derrick Boat Runner For BANNER 02/14/24 In Process 24 Hours 13:37 Emergency Dysrhythmia BANNER 02/14/24 In Process Protocol 13:37 Rhythm Strips Once BANNER 02/14/24 In Process Every Shift 13:37 Oxygen By Nasal RT 02/14/24 Transmitted Cannula 13:[address] 02/14/24 Resulted Contrast 13:44 Date of Service: Feb 14, 2024 Billing Provider: ASHANTI ISAAC MD Common Visit Codes: NOT BILLABLE ASHANTI ISAAC MD Feb 14, 2024 15:26
[2024-02-14] MEDS: ATORVASTATIN 20 MG TAB PO SCH (22:21)
[2024-02-15] VITALS (8 sets, daily range): BP systolic 106–147; BP diastolic 44–92; PULSE 56–70; RESP 16–19; TEMP 97.2–98.6; O2SAT 92–95
[2024-02-15] MEDS: ACETAMINOPHEN 325 MG TAB PO PRN (02:42)
[2024-02-15] MEDS: LEVOTHYROXINE SODIUM 50 MCG TAB PO SCH (06:15)
[2024-02-15] MEDS ORDERED: MORPHINE SULFATE INJ 2 MG/ml SYRG IV PRN (07:30)
--- NOTE | 2024-02-15 07:35 | DVHPN2 ---
Progress Note Date Seen: Feb 15, 2024 Has the PT tested + for MRSA If YES, has PT been informed?: No Medical Necessity Reason Pt with a Central, PICC or Fol: No Subjective Review of Systems Pt feels well. Admits to incisional pain. No other complaints Objective vital signs Vital Sign Date Time Temp Pulse Resp B/P (MAP) Pulse Ox O2 Delivery O2 Flow Rate FiO2 02/15/24 05:53 98.6 60 19 129/58 (81) 95 98.6 02/14/24 20:00 Room Air* 0 21 Total Intake and Output 02/14/24 02/14/24 02/15/24 15:00 23:00 07:00 Intake Total 100 ml 0 ml 255 ml Output Total 20 ml 975 ml Balance 80 ml -975 ml 255 ml medications Current Medications Medications Dose Ordered Sig/Nneka Route Start Time Stop Time Status Last Admin Dose Admin Atenolol 25 mg DAILY PO 02/15/24 10:00 Levothyroxine Sodium 50 mcg QAM PO 02/15/24 07:00 02/15/24 06:15 50 MCG Atorvastatin Calcium 10 mg HS PO 02/14/24 22:00 02/14/24 22:21 10 MG Sodium Chloride 1,000 ml @ 120 mls/hr Q8H20M IV 02/14/24 13:45 Acetaminophen/ Hydrocodone Bitart 1 tab Q4HP PRN PO 02/14/24 13:45 Ondansetron HCl 4 mg Q4HP PRN IV 02/14/24 13:45 Enoxaparin Sodium 40 mg DAILY SC 02/15/24 10:00 Acetaminophen 650 mg Q6HP PRN PO 02/14/24 13:45 02/15/24 02:42 650 MG Morphine Sulfate 2 mg Q4HPRN PRN IV 02/14/24 13:45 Nitroglycerin 0.4 mg Q5MINP PRN SL 02/14/24 13:45 Morphine Sulfate 2 mg Q30M PRN IV 02/14/24 13:45 Examination AFVSS. Abdomen soft, ND and mildly tender. Dressings C/D/I. Drain with ss fluid. CTA Negative for PE. B/L ATX. B/L LE Duplex negative for DVT laboratory and microbiology Laboratory Tests 02/14/24 14:30 Test 02/14/24 14:30 Range/Units Serum Glucose 148 H 74-106 mg/dL Labs and/or images reviewed: Labs reviewed by me Problem List/Assessment/Plan Problems(with codes): (1) Atelectasis (2) Perforated appendicitis Problem List/Assessment/Plan S/p Lap MITZY, reduction of internal hernia and appendectomy. Hypoxemia, likely from ATX. Continue diet. HLIVF. OOB and ambulation. IS. May D/C home from surgical standpoint when medically stable. Will sign off, please call if needed. Plan discussed with: Patient My Orders My Orders Orders - GREGOR MARTIN MD Procedure Category Date Status Time Mrsa Screen MARTINE 02/14/24 Logged 18:17 Cardiac DIET 02/15/24 Transmitted Diet-2gna,Lofat,Lochol Breakfast GREGOR MARTIN MD Feb 15, 2024 07:35
[2024-02-15] MEDS: ATENOLOL 25 MG TAB PO SCH (10:20)
[2024-02-15] MEDS: ENOXAPARIN SOD 40 MG/0.4 ML SYRINGE SC SCH (10:21)
[2024-02-15] MEDS: HYDROcodone-ACET 10/325MG TAB PO PRN (16:43)
[2024-02-15] MEDS ORDERED: HYDR-4902 PO (17:45)
[2024-02-15] MEDS ORDERED: NALO4SPR2 (17:45)
--- NOTE | 2024-02-15 17:49 | DVHDS2 ---
Discharge Summary Date of Admission Feb 14, 2024 at 13:37 Date of Discharge: Feb 15, 2024 Labs/Diagnostic Data: Laboratory Results Test 02/14/24 14:30 Sodium Level 139 mmol/L (136-145) Potassium Level 4.1 mmol/L (3.5-5.1) Chloride Level 105 mmol/L (98-107) Carbon Dioxide Level 27 mmol/L (20-31) Anion Gap 7 (5-15) Blood Urea Nitrogen 18 mg/dL (9-23) Creatinine 0.89 mg/dL (0.550-1.02) Glomerular Filtration Rate Calc 68 mL/min (>90) BUN/Creatinine Ratio 20.2 (10.0-20.0) Serum Glucose 148 mg/dL (74-106) Calcium Level 8.9 mg/dL (8.7-10.4) Other Laboratory Tests 02/14/24 14:30 Brief Hx & Hospital Course: 73-year-old female with a known history of hypertension, dyslipidemia, hypothyroidism, recent hospitalization at [facility] for perforated appendicitis with abscess was managed with the IV antibiotics, recent C diff treatment presented to the hospital as an elective procedure. Patient underwent elective interval laparoscopic appendectomy. Postoperatively patient was desaturating eventually was admitted. CT angio shows no evidence of PE, Doppler venous shows no evidence of DVT. Patient is currently stable to be discharged as cleared by General surgery. Patient is requesting some pain pills for home which will be prescribed. Patient's and daughter was updated at bedside regarding current plan of care. They understand verbalized understanding and agreeable to plan. Condition at Discharge: Stable Final Diagnosis/Problems List 1. Acute hypoxic respiratory failure ruled out pulmonary embolism, ruled out DVT , patient is currently saturation more than 92% on room and on exertion 2. Status post laparoscopic interval appendectomy 3. Hypertension 4. Dyslipidemia 5. Hypothyroidism 6. Asymptomatic bradycardia, heart rate 50 4/56, currently on low-dose of atenolol Discharge Disposition: Home SNF Discharge Will this Physician continue t: No Discharge Instruct/Medications Diet: See Comment Diet comment: See above Activity: No Restrictions, As Tolerated Activity comment: No driving for 2 weeks. May shower. Empty and record drain output daily and as needed. Resume previous medications and diet. Call office for any questions or concerns. Keep postoperative appoitntment Follow Up/Referral: See above Medications: See above. May take Tylenol or motrin for pain, perpackage insert instructions Discharge Statement: "Patient was advised to return to the ER or call 911 if any headaches, dizziness, shortness of breath, chest pain, abdominal pain, bleeding, fevers, or worsening of medical condition. Patient was counseled about treatment plan, medications, possible side effects, patientverbalized understanding. All questions were answered to the best of my ability. This discharge took greater then 30 minutes in planning, reviewing documentation, counseling the patient, and discussing with other team members." ASSESSMENT ASSESSMENT Assessment Perforated appendicitis Date of Service: Feb 15, 2024 Billing Provider: ASHANTI ISAAC MD Common Visit Codes: NOT BILLABLE ASHANTI ISAAC MD Feb 15, 2024 17:49
== END 2024-02-15 18:54 | disposition home or self-care (01) | DRG 397 ==
LOC: SUR 06:09 → TELE 13:37 → TELE-EAST 15:37
PROVIDERS: ADMIT Internal Medicine
PROC: 0DTJ4ZZ Resection of Appendix, Percutaneous Endoscopic Approach (ICD-10-PCS; principal; 2024-02-14 07:26)
DX: K35.32 Acute appendicitis with perforation, localized peritonitis, and gangrene, without abscess (principal); J96.01 Acute respiratory failure with hypoxia; J98.11 Atelectasis; K43.9 Ventral hernia without obstruction or gangrene; I10 Essential (primary) hypertension; E78.5 Hyperlipidemia, unspecified; E03.9 Hypothyroidism, unspecified; R00.1 Bradycardia, unspecified
CPT/HCPCS: 36415; 71275; 80048; 86850; 86900; 86901; 93970; G0378; J0694; J1100; J2003; J2250; J2405; J2704; J3490

== ENCOUNTER 2024-04-17 07:04 | Inpatient (IN) | payer MEDICARE, OTHER ==
[~2024-04-17] VITALS: Ht 162.6 cm; Wt 67.5 kg
[2024-04-17] VITALS (9 sets, daily range): BP systolic 108–135; BP diastolic 49–67; PULSE 52–83; RESP 8–15; TEMP 96.8–97.5; O2SAT 96–100
[~2024-04-17 07:04] MED LIST changes: +ASCO500T11 PO; -ATOR10TA52 PO; +ATOR20TA PO; +CHOL200064 PO; +IRONTAB33 OR; +NALO4SPR2
[2024-04-17] MEDS: cefOXitin 2GM/100ML 100 ML IV ONE (07:30)
[2024-04-17] MEDS ORDERED: KETAMINE 50mg/ML 1ml syringe ONE (07:56)
[2024-04-17] MEDS ORDERED: HYDROmorphone HCL 2 MG/ML VL/or syr ONE (07:57)
[2024-04-17] MEDS ORDERED: fentaNYL CITRATE 100 MCG/2 ML VL ONE (07:57)
[2024-04-17] MEDS ORDERED: DexAMETHasone SOD PHOS 10MG/1ML VIAL INJ ONE (07:58)
[2024-04-17] MEDS ORDERED: GLYCOPYRROLATE 0.2 MG/ML 1ML VIAL ONE (07:58)
[2024-04-17] MEDS ORDERED: PROPOFOL 10 MG/ML 20 ML IV ONE (07:58)
[2024-04-17] MEDS ORDERED: KETOROLAC TROMETH 30 MG/ML 1ML VIAL ONE (07:58)
[2024-04-17] MEDS ORDERED: MIDAZOLAM HCL 2MG/2ML 2ml VIAL (1mg/ml) ONE (07:58)
[2024-04-17] MEDS ORDERED: ROCURONIUM 10MG/ML 10ML VIAL IV ONE (07:58)
[2024-04-17] MEDS ORDERED: ePHEDrine SULFATE 50 MG/ML AMP ONE (07:58)
[2024-04-17] MEDS ORDERED: PHENYLEPHRINE HCL 10 MG/ML VL ONE (07:58)
[2024-04-17] MEDS: HEPARIN SODIUM (PORCINE) 5000 UNITS/ML 1ML VIAL ONE (08:20)
[2024-04-17] MEDS: LIDOCAINE W/ EPINEPHRINE 1% 20ML VIAL ONE (09:55)
[2024-04-17] MEDS: BUPIVACAINE 0.5% MPF INJ 30ML SDV IJ ONE (09:55)
[2024-04-17] MEDS: LIDOCAINE 1% HCL (LOCAL ANESTH.) INJ 20ML MDV ONE (10:14)
[2024-04-17] MEDS ORDERED: ETOMIDATE (2MG/ML) 20ML VIAL IV ONE (10:31)
[2024-04-17] MEDS ORDERED: SUGAMMADEX 200mg/2ml Vial (100MG/ML) IV ONE (10:31)
[2024-04-17] MEDS: SODIUM CHLORIDE 0.9% 1,000 ML IV SCH (13:00)
[2024-04-17] MEDS: ONDANSETRON HCL 4 MG/2 ML VIAL IV ONE (13:15)
[2024-04-17] MEDS ORDERED: NITROGLYCERIN 0.4 MG SL TAB SL PRN (13:30)
[2024-04-17] MEDS ORDERED: MORPHINE SULFATE INJ 2 MG/ml SYRG IV PRN (13:30)
[2024-04-17 14:01] LABS: Basophils # (auto) 0 10 ^3/uL (0-0.2); Basophils % (auto) 0.2 % (0.0-2.0); Eosinophils # (auto) 0 10 ^3/uL (0-0.8); Eosinophils % (auto) 0.2 % (0.0-7.0); Hematocrit 34.5 % (36.0-46.0); Hemoglobin 11.5 g/dL (12.2-16.2); Lymphocytes # (auto) 1.7 10 ^3/uL (0.4-5.4); Lymphocytes % (auto) 9.1 % (10.0-50.0); Mean Corpuscular Hemoglobin 29.6 pg (28.0-32.0); Mean Corpuscular Hgb Conc. 33.3 g/dL (32.0-36.0); Mean Corpuscular Volume 88.8 fL (80.0-100.0); Monocytes # (auto) 0.3 10 ^3/uL (0-1.3); Monocytes % (auto) 1.8 % (0.0-12.0); Neutrophils # (auto) 16.2 10 ^3/uL (1.6-8.6); Neutrophils % (auto) 88.7 % (37.0-80.0); Platelet Count (auto) 245 10^3/uL (140-450); Red Blood Cells 3.89 10^6/uL (4.0-5.20); Red Cell Distribution Width 14.4 % (11.8-14.3); White Blood Cell 18.2 10^3/uL (4.4-10.8)
[2024-04-17 14:11] LABS: Alanine Aminotransferase 14 U/L (7-40); Albumin 3.7 g/dL (3.2-4.8); Anion Gap 10 (5-15); Aspartate Aminotransferase 20 U/L (13-40); BUN/Creatinine Ratio 15.7 (10.0-20.0); Bilirubin, Total 0.5 mg/dL (0.2-1.0); Blood Urea Nitrogen 14 mg/dL (9-23); Calcium 9.1 mg/dL (8.7-10.4); Carbon Dioxide 26 mmol/L (20-31); Chloride 105 mmol/L (98-107); Potassium 4.1 mmol/L (3.5-5.1); Sodium 141 mmol/L (136-145); Total Protein 5.8 g/dL (5.7-8.2)
[2024-04-17 14:18] LABS: Alkaline Phosphatase 147 U/L (46-116); Glucose 171 mg/dL (74-106)
[2024-04-17 14:34] LABS: INR 1.15 (0.9-1.15); Partial Thromboplastin Time 27.6 SEC (24.5-34.5)
--- NOTE | 2024-04-17 14:37 | DVHOP ---
DATE OF SURGERY: 04/17/2024 PREOPERATIVE DIAGNOSIS: Appendiceal cancer. POSTOPERATIVE DIAGNOSIS: Appendiceal cancer. PROCEDURE: Laparoscopic right hemicolectomy, laparotomy and intraabdominal packing (3 lap pads). SURGEON: Clive Yoo MD. STRAIGHTEDGE WORKER: None. ANESTHESIOLOGIST: Dr. Mckeon. ANESTHESIA: General by means of endotracheal intubation. INTRAOPERATIVE FINDINGS: * No evidence of peritoneal carcinomatosis or any other findings to suggest metastatic disease. * Mild adhesions involving the terminal ileum and the cecum against the right lower quadrant region. * Refractory retroperitoneal bleeding/oozing in the right upper quadrant region from the colon dissection. ESTIMATED BLOOD LOSS: Approximately 300 mL. INTRAVENOUS FLUIDS: Per anesthesia charting. URINE OUTPUT: Per RN charting. DRAINS: None. IMPLANTS: FloSeal, Surgicel SNoW, CB mckayla and three lap pads. SPECIMENS: Terminal ileum, ascending colon, proximal transverse colon. COMPLICATIONS: None. Intractable retroperitoneal bleeding in the right upper quadrant region from the peritoneal, colon dissection. Procedure well tolerated and transferred to recovery room in a stable condition. 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 Therefore, she was recommended to undergo a laparoscopic, possible open right hemicolectomy. The procedure, risks and benefits were explained in a detailed and extensive fashion. All questions were answered. She understood and agreed to proceed. DESCRIPTION OF PROCEDURE: The patient was taken to the operating room. She was placed in a dorsal decubitus position on the operating room table. Once adequate anesthesia was achieved, the left arm was tucked to her side, paying careful attention on providing adequate positioning as well as padding to prevent any potential injuries. The patient had a Fagan catheter placed by the circulating nurse. She received prophylactic antibiotics as well as prophylactic heparin. My attention was directed towards the periumbilical region where local anesthesia consisting of 1% lidocaine and 0.5% Marcaine was infiltrated. The abdominal wall was retracted anteriorly and the Veress needle was inserted into the abdominal cavity via the base of the umbilicus. My attention was directed towards the supraumbilical region where a 5 mm trocar was placed with preemptive local anesthesia. A 5 mm, 30-degree laparoscope was inserted into the abdominal cavity. Abdominal cavity was inspected. There was no evidence of gross metastatic disease. No evidence of injury or bleeding upon entry. The Veress needle was removed under direct laparoscopic visualization. My attention was then directed towards the left side of the abdomen where a 5 mm and 12 mm trocar were placed in the left upper quadrant and left lower quadrant region respectively. Both trocars were placed with preemptive local anesthesia as well as under direct laparoscopic visualization. My attention was then directed to the right lower quadrant region where the terminal ileum and cecum were identified. There was no evidence of any tumor implants in the area. The terminal ileum demonstrated some adhesions as well as adhesive bands against the right lower quadrant region as well as other loops of small intestine. These adhesions were carefully dissected with EndoShears. The ascending colon was mobilized medially by incising the white line of Toldt with EndoShears. Careful mobilization was carried successfully without any injury or bleeding. At this time, my attention was directed towards the hepatocolic ligament, which was divided with the Harmonic scalpel using the vessel sealer feature. This provided excellent mobilization of the transverse colon. The mobilization of the colon was carried medially exposing the duodenum and to the level of the middle colic vessels. At this time, the terminal ileum was divided at approximately 8 cm from the ileocecal valve with a 60 mm Fairgrove stapler using a blue cartridge. The mesentery of the small intestine was divided with the Harmonic scalpel using the vessel sealer feature. The same was carried down with the mesentery of the ascending colon at the root of the mesentery. The colon was mobilized successfully to be exteriorized and proceed with the retrieval of the specimen and the anastomosis. At this time, the pneumoperitoneum was evacuated. The supraumbilical trocar site incision was extended to approximately 6 cm cephalad. The subcutaneous tissue and fascia were incised with electrocautery to the level of the peritoneal layer, which was then retracted anteriorly and divided over my finger with the electrocautery without injury to internal organs. A medium-sized Fausto wound protector was placed and the specimen was retrieved. The right branch of middle colic vessels were divided between clamps and suture ligated with a 2-0 silk suture. Using the same stapler device, the proximal transverse colon was divided distal to the right middle colic vessels. The specimen was then handed to the technical service specialist to send to pathology for further examination. At this time, the small intestine was exteriorized through the same incision. An antimesenteric isoperistaltic ileocolostomy was created with the same stapler device and a blue cartridge ensuring proper orientation of the mesentery and ensuring that there was no loop of small intestine herniating through the defect. The remaining opening was closed with a TA 60 mm stapler with a blue cartridge. The TA staple line was reinforced with several interrupted 3-0 silk sutures in Lembert fashion. A cross stitch was also placed using a 3-0 silk suture to avoid tension on the anastomosis. The area of anastomosis was returned to the abdominal cavity and the orthopedic glove was placed around the Fausto wound protector. In order to achieve a seal and avoid loss of pneumoperitoneum, pneumoperitoneum at 15 mmHg was achieved. The 5 mm, 30-degree laparoscope was inserted into the abdominal cavity. Upon inspecting the abdominal cavity in the right lower quadrant region, there is evidence of a thrombus and fresh blood. At this time, it was evacuated. Unfortunately, the area could not be clearly visualized. For this reason, the pneumoperitoneum was evacuated and the laparoscopic equipment was removed from the patient with exception of the left upper quadrant 5 mm trocar. A supra-infraumbilical midline incision was made. The previous laparotomy was extended caudally with electrocautery while providing anterior abdominal retraction to avoid injury to internal organs. The area was inspected. It was noted oozing from the retroperitoneum that was refractory to electrocautery. The area was suctioned and FloSeal and Surgicel SNoW was applied. Pressure was held for 10 minutes. This was repeated twice, as hemostasis was still not completely obtained. Given the failure of hemostasis, I decided to pack the abdomen with 3 lap pads and bring the patient back for a second look laparotomy on Saturday. The abdominal cavity was inspected for any further bleeding or injury. None was found. The midline incision was closed with double-stranded 0 PDS sutures. Pneumoperitoneum was achieved up to 15 mmHg. The 5 mm, 30-degree laparoscope was inserted into the abdominal cavity and the area was inspected. The right upper quadrant region was inspected. There was no further evidence of active bleeding. My attention was then directed towards the left lower quadrant region where the 12 mm trocar was closed with a Celso-Monica device and 1 Vicryl in a [id number] fashion under direct laparoscopic visualization. My attention was directed again to the right upper quadrant region. The area was observed for several minutes without any evidence of active bleeding. The pneumoperitoneum was evacuated. The wounds were washed and dried. The skin was closed with mckayla. The patient tolerated well the procedure. There were no complications other than the refractory bleeding. The patient was successfully extubated in the operating room and transferred to recovery room in a stable condition. The patient will be admitted and closely observed. MD BRET Roa/KAVITHA/ROGELIO TID: [id number] RECEIPT: [id number]
[2024-04-17] MEDS: HYDROmorphone HCL 2 MG/ML VL/or syr IV PRN (15:35)
[2024-04-17] MEDS: ACETAMINOPHEN IV 1000 MG/100ML (10MG/ML) IV ONE (20:35)
--- NOTE | 2024-04-17 23:26 | DVHINCON2 ---
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 Patient was admitted and pulmonary consultation is requested for evaluation and management due to acute hypoxic respiratory failure. Review of Systems: 14-point review of systems negative unless otherwise noted above. Past Medical History: Hypertension, dyslipidemia, hypothyroidism, perforated appendicitis, C. diff colitis Past Surgical History: Appendectomy Medications: Reviewed. Allergies: No known drug allergies. Family History: No family history of premature CAD. No family history of lung disorders. Social History: Nonsmoker. No alcohol or illicit drug use. Family History: Patient reports no known family medical history. Allergies: Coded Allergies: NO KNOWN ALLERGIES (Unverified , 10/23/09) Home Meds Active Scripts Naloxone HCl (Narcan) 4 Mg/0.1 Ml Spr, 4 MG NA SALES EXPERT, #2 SPRAY Prov:ASHANTI ISAAC MD 02/15/24 Reported Medications Iron W/ Vitamins (Geritol Complete) Complete Tab, 1 OR DAILY, TAB 04/16/24 Cholecalciferol (D3 2000) 2,000 Unit Cap, 2000 UNIT PO DAILY, CAP 04/16/24 Ascorbic Acid (VITAMIN C TABLET) 500 Mg Tb, 1000 MG PO DAILY, TAB 04/16/24 Atorvastatin Calcium (Lipitor) 20 Mg Tab, 20 MG PO DAILY, TAB 04/16/24 Levothyroxine Sodium (SYNTHROID TABLET) 50 Mcg Tb, 50 MCG PO DAILY, TAB 02/12/24 Atenolol (Atenolol) 25 Mg Tab, 1 TAB PO DAILY 02/03/20 Discontinued Reported Medications Atorvastatin Calcium (ATORVASTATIN CALCIUM) 10 Mg Tab, 1 TAB PO HS 02/03/20 Current Medications Current Medications Medications (Trade) Dose Ordered Sig/Nneka Route PRN Reason Start Time Stop Time Status Last Admin Sodium Chloride 1,000 ml @ 100 mls/hr Q10H IV 04/17/24 13:00 04/17/24 17:57 Cefoxitin Sodium 1 gm/Dextrose 50 ml @ 50 mls/hr Q6HR IV 04/17/24 18:00 04/18/24 12:59 04/17/24 18:04 Morphine Sulfate 2 mg Q2HPRN PRN IV MODERATE PAIN (4-6 PAIN SCALE) 04/17/24 13:00 Morphine Sulfate 4 mg Q2HPRN PRN IV SEVERE PAIN (7-10 PAIN SCALE) 04/17/24 13:00 Pantoprazole Sodium (Protonix) 40 mg DAILY IV 04/18/24 10:00 Hydromorphone HCl (Dilaudid Injection) 0.5 mg Q10M PRN IV SEVERE PAIN (7-10 PAIN SCALE) 04/17/24 13:15 04/17/24 18:00 DC 04/17/24 16:30 Nitroglycerin (Ntrostat Sublingual) 0.4 mg Q5MINP PRN SL FOR CHEST PAIN 04/17/24 13:30 Morphine Sulfate 2 mg Q30M PRN IV FOR CHEST PAIN 04/17/24 13:30 Vital Signs Vital Signs Date Time Temp Pulse Resp B/P (MAP) Pulse Ox O2 Delivery O2 Flow Rate FiO2 04/17/24 19:00 63 9 118/60 (79) 98 04/17/24 17:24 Nasal Cannula* 3 32 04/17/24 17:24 97.5 97.5 Physical Exam Gen.: Patient lying in bed in no apparent distress. On supplemental oxygen. Head: Normocephalic, atraumatic. Eyes: EOMI/PERRLA. Ears: Normal hearing. Normal anatomy. Neck/trachea: Trachea midline, supple. Nose: Normal external anatomy. Mouth: Moist mucous membranes. Chest: Decreased air entry bilaterally. No wheezing or rhonchi. Cardiovascular: Positive S1, positive S2. Regular rate and rhythm. Abdomen: Positive bowel sounds in all 4 quadrants. Soft, non-tender, non- distended. : Deferred. Rectal: Deferred. Skin: Warm, dry. Intact. Extremities: 2+ radial pulses bilaterally. No lower extremity edema. Neuro: Awake, alert, oriented x3. No gross motor or sensory deficits. Cranial nerves II through XII intact. Gait not assessed. Labs/Diagnostic Data Labs Test 04/17/24 13:24 Range/Units White Blood Count 18.2 H 4.4-10.8 10^3/uL Red Blood Count 3.89 L 4.0-5.20 10^6/uL Hemoglobin 11.5 L 12.2-16.2 g/dL Hematocrit 34.5 L 36.0-46.0 % Mean Corpuscular Volume 88.8 80.0-100.0 fL Mean Corpuscular Hemoglobin 29.6 28.0-32.0 pg Mean Corpuscular Hemoglobin Concent 33.3 32.0-36.0 g/dL Red Cell Distribution Width 14.4 H 11.8-14.3 % Platelet Count 245 140-450 10^3/uL Mean Platelet Volume 8.3 6.9-10.8 fL Neutrophils (%) (Auto) 88.7 H 37.0-80.0 % Lymphocytes (%) (Auto) 9.1 L 10.0-50.0 % Monocytes (%) (Auto) 1.8 0.0-12.0 % Eosinophils (%) (Auto) 0.2 0.0-7.0 % Basophils (%) (Auto) 0.2 0.0-2.0 % Neutrophils # (Auto) 16.2 H 1.6-8.6 10 ^3/uL Lymphocytes # (Auto) 1.7 0.4-5.4 10 ^3/uL Monocytes # (Auto) 0.3 0-1.3 10 ^3/uL Eosinophils # (Auto) 0 0-0.8 10 ^3/uL Basophils # (Auto) 0 0-0.2 10 ^3/uL Nucleated Red Blood Cells 0.0 % Prothrombin Time 12.0 H 9.3-11.8 sec Prothrombin Time INR 1.15 0.9-1.15 Activated Partial Thromboplast Time 27.6 24.5-34.5 SEC Fibrinogen 385 H 177-375 mg/dL Sodium Level 141 136-145 mmol/L Potassium Level 4.1 3.5-5.1 mmol/L Chloride Level 105 98-107 mmol/L Carbon Dioxide Level 26 20-31 mmol/L Anion Gap 10 5-15 Blood Urea Nitrogen 14 9-23 mg/dL Creatinine 0.89 0.550-1.02 mg/dL Glomerular Filtration Rate Calc 68 >90 mL/min BUN/Creatinine Ratio 15.7 10.0-20.0 Serum Glucose 171 H 74-106 mg/dL Calcium Level 9.1 8.7-10.4 mg/dL Total Bilirubin 0.5 0.2-1.0 mg/dL Aspartate Amino Transferase (AST) 20 13-40 U/L Alanine Aminotransferase (ALT) 14 7-40 U/L Alkaline Phosphatase 147 H 46-116 U/L Total Protein 5.8 5.7-8.2 g/dL Albumin 3.7 3.2-4.8 g/dL Assessment Impression: Acute hypoxic respiratory failure Dependence on supplemental oxygen S/p hemicolectomy Appendiceal cancer Leukocytosis Plan: Supplemental oxygen 4 LPM NC Titrate to keep O2 sats above 92%. Taper O2 as tolerated. IV fluid hydration Monitor hemoglobin Follow up Surgery recs Continue antibiotics Follow up cultures Incentive spirometry Pain control Avoid oversedation Monitor renal function. Monitor electrolytes. Supplement as necessary. Monitor ins and outs. DVT prophylaxis - SCDs Prognosis: Poor given patient's multiple co-morbidities. Condition: Critical Rest of plan per hospitalist and other consultants. A total of 35 minutes of critical care time was spent reviewing the patient record, examining the patient, making a diagnostic and therapeutic plan, discussing this plan with the medical personnel, following up on diagnostic studies and following the patient for clinical stability excluding any and all procedures. At least 50% of this time was spent in direct, [id number] contact. Thank you, Dr. Yoo, for allowing me to participate in this patient's care. Further recommendations will depend on the patient's clinical course. Please do not hesitate to contact me if you have any questions or concerns. This medical document was created using an electronic medical record system with [employer] dictation system. Although these documentations are being carefully reviewed, there may still be some phonetic and typographical changes. The errors are purely typographical, due to imperfection on the software program, and do not reflect any compromise in the patient's medical care. Plan discussed with: Patient, Other (RN/Dr. Yoo) JOVANNA BAGLEY MD Apr 17, 2024 23:26
[2024-04-18] VITALS (49 sets, daily range): BP systolic 94–147; BP diastolic 39–66; PULSE 53–118; RESP 8–30; TEMP 97.1–100.8; O2SAT 89–100
[2024-04-18 04:09] LABS: Basophils # (auto) 0 10 ^3/uL (0-0.2); Eosinophils # (auto) 0 10 ^3/uL (0-0.8); Hematocrit 28.7 % (36.0-46.0); Hemoglobin 9.4 g/dL (12.2-16.2); Lymphocytes # (auto) 0.9 10 ^3/uL (0.4-5.4); Lymphocytes % (auto) 6.9 % (10.0-50.0); Mean Corpuscular Hemoglobin 29.3 pg (28.0-32.0); Mean Corpuscular Hgb Conc. 32.9 g/dL (32.0-36.0); Mean Corpuscular Volume 89.1 fL (80.0-100.0); Monocytes # (auto) 1.3 10 ^3/uL (0-1.3); Monocytes % (auto) 9.6 % (0.0-12.0); Neutrophils # (auto) 11.3 10 ^3/uL (1.6-8.6); Neutrophils % (auto) 83.5 % (37.0-80.0); Platelet Count (auto) 215 10^3/uL (140-450); Red Blood Cells 3.22 10^6/uL (4.0-5.20); White Blood Cell 13.6 10^3/uL (4.4-10.8)
[2024-04-18 04:26] LABS: Anion Gap 8 (5-15); Calcium 8.9 mg/dL (8.7-10.4); Carbon Dioxide 26 mmol/L (20-31); Chloride 107 mmol/L (98-107); Potassium 4.5 mmol/L (3.5-5.1); Sodium 141 mmol/L (136-145)
[2024-04-18 04:32] LABS: BUN/Creatinine Ratio 18.1 (10.0-20.0); Blood Urea Nitrogen 19 mg/dL (9-23)
[2024-04-18 04:36] LABS: Glucose 181 mg/dL (74-106); Magnesium 1.6 mg/dL (1.6-2.6)
[2024-04-18] MEDS: MORPHINE SULFATE INJ 2 MG/ml SYRG IV PRN (05:31)
--- NOTE | 2024-04-18 05:39 | DVHPN2 ---
Progress Note Date Seen: Apr 18, 2024 Medical Necessity Reason Pt with a Central, PICC or Fol: No The following are medically ne: Garcia Catheter Reason for garcia catheter: Chance. Abd Surgery, Strict I&O Subjective Review of Systems Pt admits to incisional pain. No other complaints. Per RN she develops episodes of bradycardia and bradypnea when she sleeps. Procedure, intraoperative finding and plan of care discussed. She verbalized understanding and agreed. Objective vital signs Vital Sign Date Time Temp Pulse Resp B/P (MAP) Pulse Ox O2 Delivery O2 Flow Rate FiO2 04/18/24 05:31 68 19 112/60 04/18/24 01:00 100 04/18/24 00:00 97.1 97.1 04/17/24 20:00 Nasal Cannula* 4 36 Total Intake and Output 04/17/24 04/17/24 04/18/24 15:00 23:00 07:00 Intake Total 100 ml 650 ml 350 ml Output Total 300 ml Balance -200 ml 650 ml 350 ml medications Current Medications Medications Dose Ordered Sig/Nneka Route Start Time Stop Time Status Last Admin Dose Admin Sodium Chloride 1,000 ml @ 100 mls/hr Q10H IV 04/17/24 13:00 04/17/24 17:57 100 MLS/HR Cefoxitin Sodium 1 gm/Dextrose 50 ml @ 50 mls/hr Q6HR IV 04/17/24 18:00 04/18/24 12:59 04/18/24 00:02 50 MLS/HR Morphine Sulfate 2 mg Q2HPRN PRN IV 04/17/24 13:00 04/18/24 05:31 2 MG Morphine Sulfate 4 mg Q2HPRN PRN IV 04/17/24 13:00 Pantoprazole Sodium 40 mg DAILY IV 04/18/24 10:00 Nitroglycerin 0.4 mg Q5MINP PRN SL 04/17/24 13:30 Morphine Sulfate 2 mg Q30M PRN IV 04/17/24 13:30 Examination AFVSS. Pale appearance. Abdomen soft, ND with mild incisional tenderness. Dressing with stable dry blood stain. Adequate U/O with clear yellow urine laboratory and microbiology Laboratory Tests 04/18/24 03:39 Test 04/18/24 03:39 Range/Units Serum Glucose 181 H 74-106 mg/dL Labs and/or images reviewed: Labs reviewed by me Problem List/Assessment/Plan Problems(with codes): (1) Anemia (2) Malignant neoplasm of appendix Problem List/Assessment/Plan Mucinous appendiceal carcinoma S/P RHC with intraabdominal packing for refractory bleeding. Postoperative anemia corresponds to EBL. Continue SDU, continuos monitoring, I/S, strict Is/Os, DVT/GI prophylaxis, prohylactic ABX, NPO. CBC 4 PM. 2nd look laparotomy with removal of packing tomorrow at 7 AM. Type and screen Plan discussed with: Patient, Spouse, Daughter My Orders My Orders Orders - GREGOR MARTIN MD Procedure Category Date Status Time Sodium Chloride 0.9% PHA 04/17/24 In Process 13:00 Cefoxitin Sodium PHA 04/17/24 In Process (Mefoxin) 18:00 Sequential TIMBO 04/17/24 In Process Compression Device 12:53 Morphine Sulfate PHA 04/17/24 In Process Injection 13:00 Morphine Sulfate PHA 04/17/24 In Process Injection 13:00 Pantoprazole PHA 04/18/24 In Process (Protonix) 10:00 Oxygen By Nasal RT 04/17/24 Transmitted Cannula 13:27 Nitroglycerin PHA 04/17/24 In Process Sublingual (Ntrostat 13:30 Morphine Sulfate PHA 04/17/24 In Process Injection 13:30 Stat Ekg For Chest TIMBO 04/17/24 In Process Pain 13:27 Notify Of Changes TIMBO 04/17/24 In Process From Base 13:27 Web Design Intern For TIMBO 04/17/24 In Process 24 Hours 13:27 Emergency Dysrhythmia TIMBO 04/17/24 In Process Protocol 13:27 Rhythm Strips Once TIMBO 04/17/24 In Process Every Shift 13:27 Admit ADMIT 04/17/24 Transmitted 16:29 Mrsa Screen MARTINE 04/17/24 In Process 17:44 Complete Blood Count LAB 04/19/24 Verified 04:00 Basic Metabolic Panel LAB 04/19/24 Verified 04:00 GREGOR MARTIN MD Apr 18, 2024 05:39
[2024-04-18] MEDS: PANTOPRAZOLE 40 MG/10 ML VIAL INJ IV SCH (09:21)
[2024-04-18] MEDS: MAGNESIUM SULFATE 1GM/100ML 100 ML IV SCH (13:16)
[2024-04-18] MEDS: SODIUM CHLORIDE 0.9% 1,000 ML IV SCH (13:18)
[2024-04-18] MEDS: LEVOTHYROXINE SODIUM 100 MCG/5 ML INJ IV ONE (13:18)
--- NOTE | 2024-04-18 13:57 | DVHHP2 ---
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 P atient was admitted and hospitalist consultation is requested for evaluation and management while in the hospital given she belongs to [facility]. Currently she is in the ICU post to surgery. Comfortable in bed. No complaints. Family is at bedside. Past Medical History Hypertension, dyslipidemia, hypothyroidism, perforated appendicitis, C. diff colitis Past Surgical History Appendectomy Family History: Hypertension Smoke: No ALCOHOL: rare Lives: with Family Review of Systems Review of Systems No chest pain or shortness for breath. No fevers chills or sweats. No headache dizziness or lightheadedness. Other review of systems reviewed normal. Allergies: Coded Allergies: NO KNOWN ALLERGIES (Unverified , 10/23/09) Medications Current Medications Medications Dose Ordered Sig/Nneka Route Start Time Stop Time Status Last Admin Dose Admin Morphine Sulfate 2 mg Q2HPRN PRN IV 04/17/24 13:00 04/18/24 09:25 2 MG Morphine Sulfate 4 mg Q2HPRN PRN IV 04/17/24 13:00 Pantoprazole Sodium 40 mg DAILY IV 04/18/24 10:00 04/18/24 09:21 40 MG Nitroglycerin 0.4 mg Q5MINP PRN SL 04/17/24 13:30 Magnesium Sulfate/ Dextrose 100 ml @ 100 mls/hr Q1HR IV 04/18/24 14:00 04/18/24 15:59 04/18/24 13:16 100 MLS/HR Sodium Chloride 1,000 ml @ 125 mls/hr Q8H IV 04/18/24 13:15 04/18/24 13:18 125 MLS/HR Levothyroxine Sodium 50 mcg DAILY IV 04/19/24 10:00 Exam Vital Signs Vital Signs Date Time Temp Pulse Resp B/P (MAP) Pulse Ox O2 Delivery O2 Flow Rate FiO2 04/18/24 11:00 67 17 109/40 (63) 94 04/18/24 08:23 Nasal Cannula* 4 36 04/18/24 08:00 98.5 98.5 Exam Alert awake comfortable in bed oriented to place and person. Family at bedside. HEENT neck supple no JVD. Heart regular rate and rhythm S1-S2. Lungs fair air movement degraded breath sounds in the bases without rales. Abdomen soft with positive bowel sounds. Dressing in place in the anterior abdominal region. Extremities no edema positive pulses. Labs/Xrays Labs Test 04/18/24 03:39 04/17/24 13:24 Range/Units White Blood Count 13.6 #H 4.4-10.8 10^3/uL Red Blood Count 3.22 L 4.0-5.20 10^6/uL Hemoglobin 9.4 #L 12.2-16.2 g/dL Hematocrit 28.7 #L 36.0-46.0 % Mean Corpuscular Volume 89.1 80.0-100.0 fL Mean Corpuscular Hemoglobin 29.3 28.0-32.0 pg Mean Corpuscular Hemoglobin Concent 32.9 32.0-36.0 g/dL Red Cell Distribution Width 14.0 11.8-14.3 % Platelet Count 215 140-450 10^3/uL Mean Platelet Volume 8.4 6.9-10.8 fL Neutrophils (%) (Auto) 83.5 H 37.0-80.0 % Lymphocytes (%) (Auto) 6.9 L 10.0-50.0 % Monocytes (%) (Auto) 9.6 0.0-12.0 % Eosinophils (%) (Auto) 0.0 0.0-7.0 % Basophils (%) (Auto) 0.0 0.0-2.0 % Neutrophils # (Auto) 11.3 H 1.6-8.6 10 ^3/uL Lymphocytes # (Auto) 0.9 0.4-5.4 10 ^3/uL Monocytes # (Auto) 1.3 0-1.3 10 ^3/uL Eosinophils # (Auto) 0 0-0.8 10 ^3/uL Basophils # (Auto) 0 0-0.2 10 ^3/uL Nucleated Red Blood Cells 0.0 % Sodium Level 141 136-145 mmol/L Potassium Level 4.5 3.5-5.1 mmol/L Chloride Level 107 98-107 mmol/L Carbon Dioxide Level 26 20-31 mmol/L Anion Gap 8 5-15 Blood Urea Nitrogen 19 9-23 mg/dL Creatinine 1.05 H 0.550-1.02 mg/dL Glomerular Filtration Rate Calc 56 >90 mL/min BUN/Creatinine Ratio 18.1 10.0-20.0 Serum Glucose 181 H 74-106 mg/dL Calcium Level 8.9 8.7-10.4 mg/dL Magnesium Level 1.6 1.6-2.6 mg/dL Prothrombin Time 12.0 H 9.3-11.8 sec Prothrombin Time INR 1.15 0.9-1.15 Activated Partial Thromboplast Time 27.6 24.5-34.5 SEC Fibrinogen 385 H 177-375 mg/dL Total Bilirubin 0.5 0.2-1.0 mg/dL Aspartate Amino Transferase (AST) 20 13-40 U/L Alanine Aminotransferase (ALT) 14 7-40 U/L Alkaline Phosphatase 147 H 46-116 U/L Total Protein 5.8 5.7-8.2 g/dL Albumin 3.7 3.2-4.8 g/dL Assessment/Plan Assessment/Plan Hypertension on atenolol at home Hypothyroidism on Synthroid Hypercholesterolemia on a statin Given the patient is NPO we will hold atenolol and statin. We will give her a dose of IV Synthroid today. Otherwise continue rest of supportive care and treatment as she is on. Give her IV fluids for low urine output. Patient is encouraged incentive spirometry. Further clinical management per clinical course and recommendations from the surgeon. Discussed with the nurse regarding care plan. Plan discussed with: Patient, Spouse My Orders Orders - KEYA DUBOSE MD Procedure Category Date Status Time Magnesium Sulfate PHA 04/18/24 In Process 1gm/100ml 14:00 Sodium Chloride 0.9% PHA 04/18/24 In Process 13:15 Levothyroxine PHA 04/19/24 In Process Injection (Synthroid 10:00 Problem List: (1) Anemia (2) Malignant neoplasm of appendix KEYA DUBOSE MD Apr 18, 2024 13:57
--- NOTE | 2024-04-18 15:02 | DVH ---
INDICATION: BLADDER ULTRASOUND TECHNIQUE: Multiple real-time grayscale transabdominal sonographic images along with color and duplex Doppler of the uterus and ovaries were obtained. COMPARISON: None FINDINGS: Fagan catheter is noted in the bladder there is 120 mL urinary residual in the bladder. IMPRESSION: 1. Fagan catheter in the bladder. 2. Bladder residual 120 mL.
[2024-04-18 16:23] LABS: Basophils # (auto) 0 10 ^3/uL (0-0.2); Eosinophils # (auto) 0 10 ^3/uL (0-0.8); Hematocrit 24.5 % (36.0-46.0); Hemoglobin 8.1 g/dL (12.2-16.2); Lymphocytes # (auto) 1.3 10 ^3/uL (0.4-5.4); Lymphocytes % (auto) 8.9 % (10.0-50.0); Mean Corpuscular Hgb Conc. 33.1 g/dL (32.0-36.0); Mean Corpuscular Volume 87.7 fL (80.0-100.0); Monocytes # (auto) 1.4 10 ^3/uL (0-1.3); Monocytes % (auto) 9.5 % (0.0-12.0); Neutrophils # (auto) 12.3 10 ^3/uL (1.6-8.6); Neutrophils % (auto) 81.6 % (37.0-80.0); Platelet Count (auto) 187 10^3/uL (140-450); Red Cell Distribution Width 14.7 % (11.8-14.3)
[2024-04-18] MEDS: MORPHINE SULFATE 4 MG/ML SYR/VIAL IV PRN (18:50)
--- NOTE | 2024-04-18 23:28 | DVHPN2 ---
Progress Note - Dictate Date Seen: Apr 18, 2024 Medical Necessity Reason Pt with a Central, PICC or Fol: No The following are medically ne: Garcia Catheter Reason for garcia catheter: Chance. Abd Surgery, Strict I&O Subjective Patient seen and examined at bedside. Remains on supplemental oxygen Overnight events reviewed. vital signs Vital Sign Date Time Temp Pulse Resp B/P (MAP) Pulse Ox O2 Delivery O2 Flow Rate FiO2 04/18/24 23:15 97 19 95 04/18/24 22:45 98.3 98.3 04/18/24 20:00 Nasal Cannula* 4 36 Total Intake and Output 04/17/24 04/17/24 04/18/24 15:00 23:00 07:00 Intake Total 100 ml 650 ml 800 ml Output Total 300 ml 375 ml Balance -200 ml 650 ml 425 ml medications Current Medications Medications Dose Ordered Sig/Nneka Route Start Time Stop Time Status Last Admin Dose Admin Morphine Sulfate 2 mg Q2HPRN PRN IV 04/17/24 13:00 04/18/24 22:52 2 MG Morphine Sulfate 4 mg Q2HPRN PRN IV 04/17/24 13:00 04/18/24 18:50 4 MG Pantoprazole Sodium 40 mg DAILY IV 04/18/24 10:00 04/18/24 09:21 40 MG Nitroglycerin 0.4 mg Q5MINP PRN SL 04/17/24 13:30 Sodium Chloride 1,000 ml @ 125 mls/hr Q8H IV 04/18/24 13:15 04/18/24 13:18 125 MLS/HR Levothyroxine Sodium 50 mcg DAILY IV 04/19/24 10:00 objective Gen.: Patient lying in bed in no apparent distress. On supplemental oxygen. Head: Normocephalic, atraumatic. Eyes: EOMI/PERRLA. Ears: Normal hearing. Normal anatomy. Neck/trachea: Trachea midline, supple. Nose: Normal external anatomy. Mouth: Moist mucous membranes. Chest: Decreased air entry bilaterally. No wheezing or rhonchi. Cardiovascular: Positive S1, positive S2. Regular rate and rhythm. Abdomen: Positive bowel sounds in all 4 quadrants. Soft, non-tender, non- distended. : Deferred. Rectal: Deferred. Skin: Warm, dry. Intact. Extremities: 2+ radial pulses bilaterally. No lower extremity edema. Neuro: Awake, alert, oriented x3. No gross motor or sensory deficits. Cranial nerves II through XII intact. Gait not assessed. 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 Rest of plan as noted below. Plan: Supplemental oxygen Titrate to keep O2 sats above 92%. IV fluids with NS at 100 ml/hr. Monitor hemoglobin Follow up Surgery recs Continue antibiotics Follow up cultures Incentive spirometry Pain control Avoid oversedation Monitor renal function. Monitor electrolytes. Supplement as necessary. Monitor ins and outs. DVT prophylaxis - SCDs Prognosis: Guarded given patient's multiple co-morbidities. Condition: Critical Rest of plan per hospitalist and other consultants. A total of 35 minutes of critical care time was spent reviewing the patient record, examining the patient, making a diagnostic and therapeutic plan, discussing this plan with the medical personnel, following up on diagnostic studies and following the patient for clinical stability excluding any and all procedures. At least 50% of this time was spent in direct, [id number] contact. Thank you, Dr. Yoo, for allowing me to participate in this patient's care. Further recommendations will depend on the patient's clinical course. Please do not hesitate to contact me if you have any questions or concerns. This medical document was created using an electronic medical record system with [employer] dictation system. Although these documentations are being carefully reviewed, there may still be some phonetic and typographical changes. The errors are purely typographical, due to imperfection on the software program, and do not reflect any compromise in the patient's medical care. Plan discussed with: Patient, Other (BOUBACAR Mays) Critical Care Time(min): 35 JOVANNA BAGLEY MD Apr 18, 2024 23:28
[2024-04-19] VITALS (61 sets, daily range): BP systolic 115–151; BP diastolic 53–69; PULSE 75–113; RESP 13–31; TEMP 98.1–99.4; O2SAT 94–100
[2024-04-19] MEDS: TRANEXAMIC ACID 10 ML ONE ×2 (00:08→08:12)
[2024-04-19] MEDS: TRANEXAMIC ACID 1,000 MG in SODIUM CHL 0.9% 100 ML IV ONE (00:16)
[2024-04-19 04:17] LABS: Potassium 4.1 mmol/L (3.5-5.1); Sodium 141 mmol/L (136-145)
[2024-04-19 04:18] LABS: Anion Gap 8 (5-15); Carbon Dioxide 26 mmol/L (20-31)
[2024-04-19 04:19] LABS: Basophils # (auto) 0 10 ^3/uL (0-0.2); Eosinophils # (auto) 0 10 ^3/uL (0-0.8); Hematocrit 24.8 % (36.0-46.0); Mean Corpuscular Hgb Conc. 32.8 g/dL (32.0-36.0); Monocytes # (auto) 1.4 10 ^3/uL (0-1.3); Red Blood Cells 2.81 10^6/uL (4.0-5.20); Red Cell Distribution Width 14.8 % (11.8-14.3)
[2024-04-19 04:23] LABS: BUN/Creatinine Ratio 22.6 (10.0-20.0); Blood Urea Nitrogen 19 mg/dL (9-23)
[2024-04-19 04:24] LABS: Hemoglobin 8.2 g/dL (12.2-16.2); Lymphocytes # (auto) 1.4 10 ^3/uL (0.4-5.4); Lymphocytes % (auto) 9.1 % (10.0-50.0); Mean Corpuscular Hemoglobin 29.1 pg (28.0-32.0); Mean Corpuscular Volume 88.5 fL (80.0-100.0); Neutrophils # (auto) 12.8 10 ^3/uL (1.6-8.6); Neutrophils % (auto) 81.9 % (37.0-80.0); Platelet Count (auto) 186 10^3/uL (140-450); White Blood Cell 15.6 10^3/uL (4.4-10.8)
[2024-04-19 04:26] LABS: Calcium 8.6 mg/dL (8.7-10.4); Chloride 107 mmol/L (98-107); Glucose 122 mg/dL (74-106)
[2024-04-19] MEDS: SUCCINYLCHOLINE CHLORIDE 20 MG/ML 10ML VIAL IV ONE (06:48)
[2024-04-19] MEDS ORDERED: fentaNYL CITRATE 100 MCG/2 ML VL ONE ×2 (06:51→08:03)
[2024-04-19] MEDS: ceFAZolin 2 GM/D5W100ml 0 ML IV ONE (07:03)
[2024-04-19] MEDS: cefOXitin 2GM/100ML 100 ML IV ONE (07:33)
[2024-04-19] MEDS: LIDOCAINE 1% HCL (LOCAL ANESTH.) INJ 20ML MDV ONE (08:42)
[2024-04-19] MEDS: BUPIVACAINE 0.5% MPF INJ 30ML SDV IJ ONE (08:42)
[2024-04-19] MEDS ORDERED: ROCURONIUM 10MG/ML 10ML VIAL IV ONE (08:45)
[2024-04-19] MEDS ORDERED: SUGAMMADEX 200mg/2ml Vial (100MG/ML) IV ONE (08:45)
[2024-04-19] MEDS ORDERED: MEPERIDINE HCL (25 MG/ML) 1ML VIAL ONE (08:50)
[2024-04-19] MEDS ORDERED: HYDROmorphone HCL 2 MG/ML VL/or syr IV PRN (09:15)
[2024-04-19] MEDS ORDERED: ACETAMINOPHEN IV 1000 MG/100ML (10MG/ML) IV PRN (09:15)
[2024-04-19] MEDS ORDERED: MEPERIDINE HCL (25 MG/ML) 1ML VIAL IV PRN (09:15)
[2024-04-19] MEDS: LEVOTHYROXINE SODIUM 100 MCG/5 ML INJ IV SCH (10:33)
[2024-04-19] MEDS: SODIUM CHLORIDE 0.9% 1,000 ML IV SCH (10:34)
--- NOTE | 2024-04-19 12:55 | DVHPN2 ---
Progress Note - Dictate Date Seen: Apr 19, 2024 Medical Necessity Reason Pt with a Central, PICC or Fol: No The following are medically ne: Garcia Catheter Reason for garcia catheter: Chance. Abd Surgery, Strict I&O Subjective Patient is clinically stable. Taken to the OR this morning by the surgeon. Now she was back in the ICU stable without any complaints. Family at bedside. vital signs Vital Sign Date Time Temp Pulse Resp B/P (MAP) Pulse Ox O2 Delivery O2 Flow Rate FiO2 04/19/24 12:00 75 14 120/53 (75) 98 04/19/24 11:00 98.3 98.3 04/19/24 10:40 Simple Mask* 7 60 Total Intake and Output 04/18/24 04/18/24 04/19/24 15:00 23:00 07:00 Intake Total 1100 ml 1000 ml 875 ml Output Total 275 ml 1300 ml Balance 1100 ml 725 ml -425 ml medications Current Medications Medications Dose Ordered Sig/Nneka Route Start Time Stop Time Status Last Admin Dose Admin Morphine Sulfate 2 mg Q2HPRN PRN IV 04/17/24 13:00 04/19/24 03:14 2 MG Morphine Sulfate 4 mg Q2HPRN PRN IV 04/17/24 13:00 04/18/24 18:50 4 MG Pantoprazole Sodium 40 mg DAILY IV 04/18/24 10:00 04/19/24 10:34 40 MG Nitroglycerin 0.4 mg Q5MINP PRN SL 04/17/24 13:30 Levothyroxine Sodium 50 mcg DAILY IV 04/19/24 10:00 04/19/24 10:33 50 MCG Sodium Chloride 1,000 ml @ 75 mls/hr [id number] IV 04/19/24 09:00 04/19/24 10:34 75 MLS/HR Diagnostic Test (Pha) 1 strip BID 04/19/24 22:00 objective Alert awake oriented to place and person. HEENT neck supple no JVD. Heart regular rate and rhythm S1-S2. Lungs without rales wheezes. Abdomen soft hypoactive bowel sounds. Extremities no edema. laboratory and microbiology Laboratory Tests 04/19/24 03:33 Test 04/19/24 03:33 Range/Units Serum Glucose 122 H 74-106 mg/dL Assessment/Plan Continue current IV fluids. NPO status per surgeon. Continue rest of supportive care and treatment as she is on. Her further clinical management per clinical course and recommendations from the surgeon. Discussed with the patient's family at bedside as well as the nurse regarding care plan Problems(with codes): (1) Malignant neoplasm of appendix (2) Anemia Plan discussed with: Patient, Spouse, Other KEYA DUBOSE MD Apr 19, 2024 12:55
--- NOTE | 2024-04-19 16:19 | DVHOP ---
DATE OF SURGERY: 04/19/2024 PREOPERATIVE DIAGNOSES: Appendiceal cancer, status post right hemicolectomy with intra-abdominal packing secondary to intractable bleeding. POSTOPERATIVE DIAGNOSES: Appendiceal cancer, status post right hemicolectomy with intra-abdominal packing secondary to intractable bleeding. PROCEDURE: Second look laparotomy with removal of intraabdominal packing. SURGEON: Clive Yoo MD AUTOMATION ENGINEERING TECHNICIAN: None. ANESTHESIOLOGIST: Dr. Law. ANESTHESIA: General by means of endotracheal intubation. INTRAOPERATIVE FINDINGS: Three lap pads within the abdominal cavity, which were removed at the completion of the procedure following a number of very small oozing, which was controlled with FloSeal and Surgicel SNoW. ESTIMATED BLOOD LOSS: Approximately 100 mL. IV FLUIDS: Per anesthesia charting. URINE OUTPUT: Per RN charting. DRAINS: A 19-Tony drain. IMPLANTS: Surgiflo and Surgicel SNoW. SPECIMENS: None. COMPLICATIONS: None. DISPOSITION: Procedure well tolerated and transferred to the recovery room in stable condition. INDICATIONS FOR PROCEDURE: The patient is a 74-year-old female with a history of appendiceal cancer, undergoing the right hemicolectomy on 04/17/2024. Intraoperatively, the patient developed intractable bleeding; therefore, she was packed with a planned procedure to return in approximately 48 hours to remove the packing. The patient was recommended to undergo a second look laparotomy with removal of packing. The procedure, risks and benefits were explained in a detailed and extensive fashion. All questions were answered. She understood and agreed to proceed. DESCRIPTION OF PROCEDURE: The patient was taken to the operating room, placed in the dorsal decubitus position on the operating room table. Once adequate anesthesia was achieved, the abdomen was widely prepped and draped in a sterile fashion. She received prophylactic antibiotics. My attention was directed towards the midline incision where the mckayla were removed. The skin was opened by the edges, gaining access to the fascial suture, which was cut with the Hansen scissors. The suture was unraveled and removed giving me access to the peritoneal cavity. At this time, the abdominal cavity was inspected. There was no evidence of active bleeding. The abdominal cavity was copiously irrigated/____ with sterile saline solution and the intra-abdominal packings were carefully individually removed in order to avoid iatrogenically caused bleeding. The laparoscope was successfully removed, identifying very small oozing in the right upper quadrant peritoneal reflection. This was easily controlled with Surgiflo and SNoW as well as 1 gram of tranexamic acid. Pressure was held for approximately 7 minutes after application of the Surgiflo and SNoW. The area was inspected. There was no active bleeding at this time. A 19-Tony drain was placed in the right upper quadrant region overlying the area of concern. It was exteriorized via the left upper quadrant previous trocar site. The drain was secured to the skin by means of 2-0 silk suture. The abdominal cavity was once again inspected. There was no evidence of active bleeding or injury. The anastomosis was patent and viable without any evidence of leak or any other abnormality. The fascia was closed with double-stranded 0 PDS suture. The skin was closed with mckayla. The patient tolerated well the procedure. There were no complications. She was successfully extubated in the operating room and transferred to recovery room in stable condition. MD BRET Roa/GRICELDA/ANIA TID: [id number] RECEIPT: [id number]
[2024-04-19] MEDS: D5W/SOD CHLO 0.9% 1,000 ML IV SCH (17:47)
[2024-04-19] MEDS: ACCU-CHEK COMFORT CURVE STRIP VI SCH (22:15)
--- NOTE | 2024-04-19 22:21 | DVHPN2 ---
Progress Note - Dictate Date Seen: Apr 19, 2024 Medical Necessity Reason Pt with a Central, PICC or Fol: No The following are medically ne: Garcia Catheter Reason for garcia catheter: Chacne. Abd Surgery, Strict I&O Subjective Patient seen and examined at bedside. Remains on supplemental oxygen Overnight events reviewed. vital signs Vital Sign Date Time Temp Pulse Resp B/P (MAP) Pulse Ox O2 Delivery O2 Flow Rate FiO2 04/19/24 21:04 94 21 128/67 04/19/24 18:00 98 04/19/24 16:00 98.4 98.4 04/19/24 10:40 Simple Mask* 7 60 Total Intake and Output 04/18/24 04/18/24 04/19/24 15:00 23:00 07:00 Intake Total 1100 ml 1000 ml 875 ml Output Total 275 ml 1300 ml Balance 1100 ml 725 ml -425 ml medications Current Medications Medications Dose Ordered Sig/Nneka Route Start Time Stop Time Status Last Admin Dose Admin Morphine Sulfate 2 mg Q2HPRN PRN IV 04/17/24 13:00 04/19/24 21:04 2 MG Morphine Sulfate 4 mg Q2HPRN PRN IV 04/17/24 13:00 04/18/24 18:50 4 MG Pantoprazole Sodium 40 mg DAILY IV 04/18/24 10:00 04/19/24 10:34 40 MG Nitroglycerin 0.4 mg Q5MINP PRN SL 04/17/24 13:30 Levothyroxine Sodium 50 mcg DAILY IV 04/19/24 10:00 04/19/24 10:33 50 MCG Diagnostic Test (Pha) 1 strip BID 04/19/24 22:00 Dextrose/Sodium Chloride 1,000 ml @ 75 mls/hr [id number] IV 04/19/24 17:30 04/19/24 17:47 75 MLS/HR objective Gen.: Patient lying in bed in no apparent distress. On supplemental oxygen. Head: Normocephalic, atraumatic. Eyes: EOMI/PERRLA. Ears: Normal hearing. Normal anatomy. Neck/trachea: Trachea midline, supple. Nose: Normal external anatomy. Mouth: Moist mucous membranes. Chest: Decreased air entry bilaterally. No wheezing or rhonchi. Cardiovascular: Positive S1, positive S2. Regular rate and rhythm. Abdomen: Positive bowel sounds in all 4 quadrants. Soft, non-tender, non- distended. : Deferred. Rectal: Deferred. Skin: Warm, dry. Intact. Extremities: 2+ radial pulses bilaterally. No lower extremity edema. Neuro: Awake, alert, oriented x3. No gross motor or sensory deficits. Cranial nerves II through XII intact. Gait not assessed. laboratory and microbiology Laboratory Tests 04/19/24 03:33 Test 04/19/24 03:33 Range/Units Serum Glucose 122 H 74-106 mg/dL Assessment/Plan Impression: Acute hypoxic respiratory failure Dependence on supplemental oxygen S/p hemicolectomy Appendiceal cancer Leukocytosis Events: Remains on supplemental oxygen, 1 LPM NC Taper O2 as tolerated Improving O2 requirements Head of bed elevation Aspiration precautions Continue antibiotics Incentive spirometry Pain control Avoid oversedation Wound care Surgery recommendations appreciated. Labs and imaging reviewed. Rest of plan as noted below. Plan: Supplemental oxygen Titrate to keep O2 sats above 92%. IV fluids with NS at 75 ml/hr. Monitor hemoglobin Follow up Surgery recs Continue antibiotics Follow up cultures Incentive spirometry Pain control Avoid oversedation Monitor renal function. Monitor electrolytes. Supplement as necessary. Monitor ins and outs. DVT prophylaxis - SCDs Prognosis: Guarded given patient's multiple co-morbidities. Rest of plan per hospitalist and other consultants. Thank you, Dr. Yoo, for allowing me to participate in this patient's care. Further recommendations will depend on the patient's clinical course. Please do not hesitate to contact me if you have any questions or concerns. This medical document was created using an electronic medical record system with [employer] dictation system. Although these documentations are being carefully reviewed, there may still be some phonetic and typographical changes. The errors are purely typographical, due to imperfection on the software program, and do not reflect any compromise in the patient's medical care. Plan discussed with: Patient, Other (BOUBACAR Montano) JOVANNA BAGLEY MD Apr 19, 2024 22:21
[2024-04-20] VITALS (41 sets, daily range): BP systolic 123–155; BP diastolic 54–84; PULSE 77–118; RESP 14–40; TEMP 98.2–99.2; O2SAT 95–100
[2024-04-20 04:43] LABS: Basophils # (auto) 0 10 ^3/uL (0-0.2); Basophils % (auto) 0.2 % (0.0-2.0); Eosinophils # (auto) 0 10 ^3/uL (0-0.8); Eosinophils % (auto) 0.3 % (0.0-7.0); Hematocrit 24.3 % (36.0-46.0); Lymphocytes # (auto) 1.4 10 ^3/uL (0.4-5.4); Lymphocytes % (auto) 10.4 % (10.0-50.0); Mean Corpuscular Hgb Conc. 33.1 g/dL (32.0-36.0); Mean Corpuscular Volume 87.5 fL (80.0-100.0); Monocytes # (auto) 0.9 10 ^3/uL (0-1.3); Monocytes % (auto) 6.7 % (0.0-12.0); Neutrophils % (auto) 82.4 % (37.0-80.0); Nucleated Red Blood Cells % 0.1 %; Platelet Count (auto) 180 10^3/uL (140-450); Red Blood Cells 2.77 10^6/uL (4.0-5.20); Red Cell Distribution Width 14.5 % (11.8-14.3); White Blood Cell 13.3 10^3/uL (4.4-10.8)
[2024-04-20 05:03] LABS: Chloride 106 mmol/L (98-107); Potassium 3.7 mmol/L (3.5-5.1); Sodium 140 mmol/L (136-145)
[2024-04-20 05:04] LABS: Anion Gap 5 (5-15); Calcium 8.9 mg/dL (8.7-10.4); Carbon Dioxide 29 mmol/L (20-31)
[2024-04-20 05:09] LABS: BUN/Creatinine Ratio 13.7 (10.0-20.0); Blood Urea Nitrogen 10 mg/dL (9-23)
[2024-04-20 05:11] LABS: Glucose 120 mg/dL (74-106)
--- NOTE | 2024-04-20 06:15 | DVHPN2 ---
Progress Note Date Seen: Apr 20, 2024 Medical Necessity Reason Pt with a Central, PICC or Fol: No The following are medically ne: Garcia Catheter Reason for garcia catheter: Chance. Abd Surgery, Strict I&O Subjective Review of Systems Pt feels better. Admits to mild incisional pain. Denies N/V, flatus or BM Objective vital signs Vital Sign Date Time Temp Pulse Resp B/P (MAP) Pulse Ox O2 Delivery O2 Flow Rate FiO2 04/20/24 05:30 98.4 106 17 136/66 (89) 100 98.4 04/19/24 20:00 Nasal Cannula* 4 36 Total Intake and Output 04/19/24 04/19/24 04/20/24 15:00 23:00 07:00 Intake Total 485 ml 600 ml 525 ml Output Total 10 ml 1110 ml 2075 ml Balance 475 ml -510 ml -1550 ml medications Current Medications Medications Dose Ordered Sig/Nneka Route Start Time Stop Time Status Last Admin Dose Admin Morphine Sulfate 2 mg Q2HPRN PRN IV 04/17/24 13:00 04/20/24 04:47 2 MG Morphine Sulfate 4 mg Q2HPRN PRN IV 04/17/24 13:00 04/18/24 18:50 4 MG Pantoprazole Sodium 40 mg DAILY IV 04/18/24 10:00 04/19/24 10:34 40 MG Nitroglycerin 0.4 mg Q5MINP PRN SL 04/17/24 13:30 Levothyroxine Sodium 50 mcg DAILY IV 04/19/24 10:00 04/19/24 10:33 50 MCG Diagnostic Test (Pha) 1 strip BID 04/19/24 22:00 04/19/24 22:15 1 STRIP Dextrose/Sodium Chloride 1,000 ml @ 75 mls/hr [id number] IV 04/19/24 17:30 04/20/24 05:56 75 MLS/HR Examination AFVSS. Abdomen soft, ND and mildly tender. Dressing C/D/I/. Drain with minimal sanguineous fluid. 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 S/p 2nd look laparotomy with removal of intraabdominal packing, continuos monitoring, I/S, strict Is/Os, Mechanical DVT/GI prophylaxis, PT, D/C garcia, Txfr to tele, CLD Trial. No need for PRBC transfusion Plan discussed with: Patient (RN) My Orders My Orders Orders - GREGOR MARTIN MD Procedure Category Date Status Time Incentive Spirometry ORDERS 04/19/24 Transmitted Q 1hr 09:06 Sarabjit Drain To Closed TIMBO 04/19/24 In Process Suction 09:06 GREGOR MARTIN MD Apr 20, 2024 06:15
--- NOTE | 2024-04-20 14:30 | DVHPN2 ---
Progress Note - Dictate Date Seen: Apr 20, 2024 Medical Necessity Reason Pt with a Central, PICC or Fol: No The following are medically ne: Garcia Catheter Reason for garcia catheter: Chance. Abd Surgery, Strict I&O Subjective Patient is clinically stable. Downgrade to telemetry floor. No complaints vital signs Vital Sign Date Time Temp Pulse Resp B/P (MAP) Pulse Ox O2 Delivery O2 Flow Rate FiO2 04/20/24 14:09 82 18 145/71 04/20/24 13:40 98.5 97 98.5 04/20/24 08:13 Nasal Cannula* 4 36 Total Intake and Output 04/19/24 04/19/24 04/20/24 15:00 23:00 07:00 Intake Total 485 ml 600 ml 600 ml Output Total 10 ml 1110 ml 2075 ml Balance 475 ml -510 ml -1475 ml medications Current Medications Medications Dose Ordered Sig/Nneka Route Start Time Stop Time Status Last Admin Dose Admin Morphine Sulfate 2 mg Q2HPRN PRN IV 04/17/24 13:00 04/20/24 14:09 2 MG Morphine Sulfate 4 mg Q2HPRN PRN IV 04/17/24 13:00 04/18/24 18:50 4 MG Pantoprazole Sodium 40 mg DAILY IV 04/18/24 10:00 04/20/24 07:28 40 MG Nitroglycerin 0.4 mg Q5MINP PRN SL 04/17/24 13:30 Levothyroxine Sodium 50 mcg DAILY IV 04/19/24 10:00 04/20/24 07:28 50 MCG Diagnostic Test (Pha) 1 strip BID 04/19/24 22:00 04/20/24 07:29 1 STRIP Dextrose/Sodium Chloride 1,000 ml @ 75 mls/hr [id number] IV 04/19/24 17:30 04/20/24 05:56 75 MLS/HR objective Alert awake oriented to place and person. HEENT neck supple no JVD. Heart regular rate and rhythm S1-S2. Lungs without rales wheezes. Abdomen soft hypoactive bowel sounds. Extremities no edema. laboratory and microbiology Laboratory Tests 04/20/24 04:05 Test 04/20/24 04:05 Range/Units Serum Glucose 120 H 74-106 mg/dL Assessment/Plan Started on clear liquid diet today. We will stop the IV fluids. Change IV medications to oral medications. Otherwise continue rest of supportive care and treatment. Physical therapy and ambulate as tolerated. Problems(with codes): (1) Anemia (2) Malignant neoplasm of appendix Plan discussed with: Patient, Other KEYA DUBOSE MD Apr 20, 2024 14:30
[2024-04-20 22:32] LABS: Basophils # (auto) 0 10 ^3/uL (0-0.2); Basophils % (auto) 0.3 % (0.0-2.0); Eosinophils # (auto) 0.1 10 ^3/uL (0-0.8); Eosinophils % (auto) 0.5 % (0.0-7.0); Hematocrit 23.9 % (36.0-46.0); Hemoglobin 7.7 g/dL (12.2-16.2); Lymphocytes # (auto) 0.9 10 ^3/uL (0.4-5.4); Mean Corpuscular Hemoglobin 28.6 pg (28.0-32.0); Mean Corpuscular Hgb Conc. 32.5 g/dL (32.0-36.0); Mean Corpuscular Volume 88.1 fL (80.0-100.0); Monocytes # (auto) 0.8 10 ^3/uL (0-1.3); Monocytes % (auto) 6.5 % (0.0-12.0); Neutrophils # (auto) 11.1 10 ^3/uL (1.6-8.6); Neutrophils % (auto) 85.7 % (37.0-80.0); Platelet Count (auto) 231 10^3/uL (140-450); Red Blood Cells 2.71 10^6/uL (4.0-5.20); Red Cell Distribution Width 14.6 % (11.8-14.3)
[2024-04-21] VITALS (7 sets, daily range): BP systolic 135–148; BP diastolic 66–76; PULSE 83–110; RESP 17–20; TEMP 98.3–99.9; O2SAT 94–98
[2024-04-21] MEDS: LEVOTHYROXINE SODIUM 50 MCG TAB PO SCH (05:54)
[2024-04-21] MEDS: PANTOPRAZOLE 40 MG TAB PO SCH (05:55)
--- NOTE | 2024-04-21 06:11 | DVHPN2 ---
Progress Note Date Seen: Apr 21, 2024 Medical Necessity Reason Pt with a Central, PICC or Fol: No The following are medically ne: Garcia Catheter Reason for garcia catheter: Bladder Retention/Obstruc Subjective Review of Systems Pt feels better today. Last night had episode of anxiety. Denied CP, SOB, orthostatic symptoms. Admitted to abdominal pain last night. Received Morphine and felt better. Slept all night. Denies N/V, flatus or BM. Tolerating CLD. Developed urinary retention, had to replace Garcia Objective vital signs Vital Sign Date Time Temp Pulse Resp B/P (MAP) Pulse Ox O2 Delivery O2 Flow Rate FiO2 04/21/24 01:00 98.4 90 18 142/76 (98) 96 98.4 04/20/24 20:00 Nasal Cannula* 4 36 Total Intake and Output 04/20/24 04/20/24 04/21/24 15:00 23:00 07:00 Intake Total 450 ml 300 ml 600 ml Output Total 2500 ml 650 ml Balance 450 ml -2200 ml -50 ml medications Current Medications Medications Dose Ordered Sig/Nneka Route Start Time Stop Time Status Last Admin Dose Admin Morphine Sulfate 2 mg Q2HPRN PRN IV 04/17/24 13:00 04/20/24 20:54 2 MG Morphine Sulfate 4 mg Q2HPRN PRN IV 04/17/24 13:00 04/18/24 18:50 4 MG Nitroglycerin 0.4 mg Q5MINP PRN SL 04/17/24 13:30 Diagnostic Test (Pha) 1 strip BID 04/19/24 22:00 04/20/24 22:32 1 STRIP Pantoprazole Sodium 40 mg DAILY@0700 PO 04/21/24 07:00 04/21/24 05:55 40 MG Levothyroxine Sodium 50 mcg QAM@0600 PO 04/21/24 06:00 04/21/24 05:54 50 MCG Examination AFVSS, Abdomen soft, mildly distended and mild incisional tenderness. Dressing C/D/I. Drain with ss fluid. 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 S/p 2nd look laparotomy with removal of intraabdominal packing, continuos monitoring, I/S, strict Is/Os, Mechanical DVT/GI prophylaxis, PT, Garcia replaced for urinary retention. Will remove garcia after initiating solid diet and flomax, Continue tele, Continue CLD Trial Awaiting GI fx to advance diet. Pending today's labs. Slight Hgb decrease. Continue observation. Plan discussed with: Patient My Orders My Orders Orders - GREGOR MARTIN MD Procedure Category Date Status Time Clear Liq Diet DIET 04/20/24 Transmitted Breakfast Pt Request For Service PT 04/20/24 Logged 06:07 Complete Blood Count LAB 04/21/24 Logged 04:00 Transfer Orders XFER 04/20/24 Transmitted 08:00 Discontinue Garcia TIMBO 04/20/24 In Process Catheter 06:15 * Pathology Assistant CONS 04/20/24 Transmitted Consult GREGOR MARTIN MD Apr 21, 2024 06:11
[2024-04-21 06:34] LABS: Basophils # (auto) 0 10 ^3/uL (0-0.2); Basophils % (auto) 0.2 % (0.0-2.0); Eosinophils # (auto) 0.2 10 ^3/uL (0-0.8); Eosinophils % (auto) 1.5 % (0.0-7.0); Hematocrit 23.4 % (36.0-46.0); Hemoglobin 7.6 g/dL (12.2-16.2); Lymphocytes # (auto) 1.7 10 ^3/uL (0.4-5.4); Lymphocytes % (auto) 12.3 % (10.0-50.0); Mean Corpuscular Hemoglobin 28.5 pg (28.0-32.0); Mean Corpuscular Hgb Conc. 32.3 g/dL (32.0-36.0); Mean Corpuscular Volume 88.2 fL (80.0-100.0); Monocytes # (auto) 1.2 10 ^3/uL (0-1.3); Monocytes % (auto) 8.5 % (0.0-12.0); Neutrophils # (auto) 10.6 10 ^3/uL (1.6-8.6); Neutrophils % (auto) 77.5 % (37.0-80.0); Platelet Count (auto) 241 10^3/uL (140-450); Red Blood Cells 2.66 10^6/uL (4.0-5.20); Red Cell Distribution Width 14.6 % (11.8-14.3); White Blood Cell 13.7 10^3/uL (4.4-10.8)
--- NOTE | 2024-04-21 17:23 | DVHPN2 ---
Progress Note - Dictate Date Seen: Apr 21, 2024 Medical Necessity Reason Pt with a Central, PICC or Fol: No The following are medically ne: Garcia Catheter Reason for garcia catheter: Bladder Retention/Obstruc Subjective Patient is clinically stable. Tolerating clear liquid diet. No complaints. Garcia catheter is present for urinary retention vital signs Vital Sign Date Time Temp Pulse Resp B/P (MAP) Pulse Ox O2 Delivery O2 Flow Rate FiO2 04/21/24 17:16 98.3 100 18 148/74 (98) 96 98.3 04/21/24 08:00 Nasal Cannula* 4 36 Total Intake and Output 04/20/24 04/20/24 04/21/24 15:00 23:00 07:00 Intake Total 450 ml 300 ml 600 ml Output Total 2500 ml 650 ml Balance 450 ml -2200 ml -50 ml medications Current Medications Medications Dose Ordered Sig/Nneka Route Start Time Stop Time Status Last Admin Dose Admin Morphine Sulfate 2 mg Q2HPRN PRN IV 04/17/24 13:00 04/21/24 10:43 2 MG Morphine Sulfate 4 mg Q2HPRN PRN IV 04/17/24 13:00 04/18/24 18:50 4 MG Nitroglycerin 0.4 mg Q5MINP PRN SL 04/17/24 13:30 Diagnostic Test (Pha) 1 strip BID 04/19/24 22:00 04/21/24 10:00 1 STRIP Pantoprazole Sodium 40 mg DAILY@0700 PO 04/21/24 07:00 04/21/24 05:55 40 MG Levothyroxine Sodium 50 mcg QAM@0600 PO 04/21/24 06:00 04/21/24 05:54 50 MCG Tamsulosin HCl 0.4 mg QPM PO 04/21/24 18:00 objective Alert awake oriented to place and person. HEENT neck supple no JVD. Heart regular rate and rhythm S1-S2. Lungs without rales wheezes. Abdomen soft hypoactive bowel sounds. Extremities no edema. laboratory and microbiology Laboratory Tests 04/21/24 05:30 04/20/24 04:05 Test 04/20/24 04:05 Range/Units Serum Glucose 120 H 74-106 mg/dL Assessment/Plan Continue clear liquid diet as she is on. Advised the nurse to do bladder training. Start her on Flomax for urinary retention. Consider removing the Garcia catheter prior to discharge once bladder training is done. Otherwise continue rest of supportive care and treatment and further clinical management per clinical course. Problems(with codes): (1) Malignant neoplasm of appendix (2) Anemia (3) Acute urinary retention Dietary Evaluation Review Comments: Recommend 2 G Na with Tomy BID for wound healing and Ensure High protein 240ml bid as protein-energy supplements Expected Outcomes/Goals: Maintain weight. healed wounds improved nutrition status. Plan discussed with: Other KEYA DUBOSE MD Apr 21, 2024 17:23
[2024-04-21] MEDS: TAMSULOSIN HYDROCHLORIDE 0.4 MG CAP PO SCH (17:30)
[2024-04-22] VITALS (13 sets, daily range): BP systolic 126–150; BP diastolic 54–78; PULSE 92–130; RESP 16–20; TEMP 98–100.1; O2SAT 94–100
[2024-04-22] MEDS ORDERED: ACETAMINOPHEN 650 MG RECT SUPP PR PRN (00:45)
[2024-04-22 05:39] LABS: Basophils # (auto) 0.1 10 ^3/uL (0-0.2); Basophils % (auto) 0.4 % (0.0-2.0); Eosinophils # (auto) 0.2 10 ^3/uL (0-0.8); Eosinophils % (auto) 1.6 % (0.0-7.0); Hematocrit 23.8 % (36.0-46.0); Hemoglobin 7.7 g/dL (12.2-16.2); Lymphocytes # (auto) 1.4 10 ^3/uL (0.4-5.4); Lymphocytes % (auto) 12.3 % (10.0-50.0); Mean Corpuscular Hemoglobin 28.2 pg (28.0-32.0); Mean Corpuscular Hgb Conc. 32.3 g/dL (32.0-36.0); Mean Corpuscular Volume 87.3 fL (80.0-100.0); Monocytes # (auto) 1.3 10 ^3/uL (0-1.3); Monocytes % (auto) 11.4 % (0.0-12.0); Neutrophils # (auto) 8.7 10 ^3/uL (1.6-8.6); Neutrophils % (auto) 74.3 % (37.0-80.0); Nucleated Red Blood Cells % 0.2 %; Platelet Count (auto) 248 10^3/uL (140-450); Red Blood Cells 2.73 10^6/uL (4.0-5.20); Red Cell Distribution Width 14.5 % (11.8-14.3); White Blood Cell 11.7 10^3/uL (4.4-10.8)
[2024-04-22 05:45] LABS: Chloride 104 mmol/L (98-107); Sodium 141 mmol/L (136-145)
[2024-04-22 05:46] LABS: Anion Gap 8 (5-15); Carbon Dioxide 29 mmol/L (20-31)
[2024-04-22 05:51] LABS: BUN/Creatinine Ratio 23.1 (10.0-20.0); Blood Urea Nitrogen 18 mg/dL (9-23)
[2024-04-22 05:56] LABS: Glucose 114 mg/dL (74-106); Potassium 3.4 mmol/L (3.5-5.1)
--- NOTE | 2024-04-22 07:04 | DVHPN2 ---
Progress Note Date Seen: Apr 22, 2024 Medical Necessity Reason Pt with a Central, PICC or Fol: No The following are medically ne: Garcia Catheter Reason for garcia catheter: Bladder Retention/Obstruc Subjective Review of Systems Pt feeling incisional pain. Per RN had fever 101 last night,. She denies N/V, passing flatus or BM. She admits to burping and mild bloating. Continues tolerating CLD. Objective vital signs Vital Sign Date Time Temp Pulse Resp B/P (MAP) Pulse Ox O2 Delivery O2 Flow Rate FiO2 04/22/24 05:01 99.7 96 18 126/54 (78) 94 99.7 04/21/24 20:00 Nasal Cannula* 4 36 Total Intake and Output 04/21/24 04/21/24 04/22/24 15:00 23:00 07:00 Intake Total 420 ml 550 ml Output Total 700 ml 600 ml Balance -280 ml -50 ml medications Current Medications Medications Dose Ordered Sig/Nneka Route Start Time Stop Time Status Last Admin Dose Admin Morphine Sulfate 2 mg Q2HPRN PRN IV 04/17/24 13:00 04/21/24 19:55 2 MG Morphine Sulfate 4 mg Q2HPRN PRN IV 04/17/24 13:00 04/18/24 18:50 4 MG Nitroglycerin 0.4 mg Q5MINP PRN SL 04/17/24 13:30 Diagnostic Test (Pha) 1 strip BID 04/19/24 22:00 04/21/24 21:57 1 STRIP Pantoprazole Sodium 40 mg DAILY@0700 PO 04/21/24 07:00 04/22/24 06:04 40 MG Levothyroxine Sodium 50 mcg QAM@0600 PO 04/21/24 06:00 04/22/24 06:04 50 MCG Tamsulosin HCl 0.4 mg QPM PO 04/21/24 18:00 04/21/24 17:30 0.4 MG Acetaminophen 650 mg Q6HP PRN TN 04/22/24 00:45 Examination AFVSS. TMax 101. Abdomen soft, mildly distended with mild incisional tenderness. Incision C/D/I. Drain with minimal sanguineous fluid within tube only. Hypokalemic. 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 S/p 2nd look laparotomy with removal of intraabdominal packing, continuos monitoring, I/S, strict Is/Os, Mechanical DVT/GI prophylaxis, PT, Garcia replaced for urinary retention. Will remove garcia after initiating solid diet and flomax, Continue tele, Continue CLD Trial Awaiting GI fx to advance diet. Pending today's labs. Slight Hgb decrease. Continue observation. Fever work up. Abdominal Xray R/O ielus. Replace K. Check Mg. Plan discussed with: Patient My Orders My Orders Orders - GREGOR MARTIN MD Procedure Category Date Status Time Acetaminophen PHA 04/22/24 In Process Suppository (Tylenol 00:45 Magnesium LAB 04/22/24 Transmitted 06:56 Urinalysis W/Out LAB 04/22/24 Transmitted Microscopic 06:56 Urine Bacterial MARTINE 04/22/24 Transmitted Culture 06:56 Chest Xray 1 View XY 04/22/24 Logged 06:56 Blood Culture MARTINE 04/22/24 Transmitted 06:56 Potassium Chl Michael PHA 04/22/24 Transmitted KCL 07:00 Complete Blood Count LAB 04/23/24 Verified 04:00 Basic Metabolic Panel LAB 04/23/24 Verified 04:00 Magnesium LAB 04/23/24 Verified 04:00 Dietary Evaluation Review Comments: Recommend 2 G Na with Tomy BID for wound healing and Ensure High protein 240ml bid as protein-energy supplements Expected Outcomes/Goals: Maintain weight. healed wounds improved nutrition status. GREGOR MARTIN MD Apr 22, 2024 07:04
[2024-04-22] MEDS: POTASSIUM CHL 20MEQ/100ML 100 ML IV SCH (08:59)
--- NOTE | 2024-04-22 09:46 | DVH ---
EXAM: XY CHEST XRAY 1 VIEW Indication: Hypoxia Technique: Single frontal view of the chest was obtained Comparison: CHEST PORTABLE on DOS: 02/01/20 FINDINGS: Lines and Tubes: None Lungs: Low lung volumes with bibasilar atelectasis. Pleura: No effusion. No pneumothorax. Cardiomediastinal contours: Unremarkable Bones: No acute osseous abnormality. IMPRESSION: Low lung volumes with bibasilar atelectasis.
--- NOTE | 2024-04-22 09:49 | DVH ---
Date: 04/22/2024 07:55 AM Examination: XY KUB ABDOMEN SINGLE VIEW History: Ileus Comparison: 02/19/2025 TECHNIQUE: Frontal views of the abdomen was obtained. FINDINGS: Bowel gas pattern is unremarkable. The lung bases are collimated from field of view. Fagan catheter projects over the expected region of the urinary bladder. No acute osseous abnormality identified. IMPRESSION: Nonobstructive bowel gas pattern.
--- NOTE | 2024-04-22 11:52 | DVH ---
EXAM: XY CHEST PORTABLE HISTORY: atelectasis/fever COMPARISON: XY CHEST XRAY 1 VIEW on DOS: 04/22/24, CHEST PORTABLE on DOS: 02/01/20 TECHNIQUE: Portable upright AP view of the chest was performed. FINDINGS: Lung volumes are low. There is diffuse interstitial prominence, right greater than left, similar to t hat seen on the earlier chest x-ray. There is increased hazy opacity in the right lung base, partiall y obscuring the right hemidiaphragm. No pneumothorax. Cardiac margins are obscured. IMPRESSION: 1. Diffuse interstitial prominence suggestive of CHF or interstitial pneumonia, although this appeara nce is likely exaggerated by low lung volumes. 2. Increasing right lung base infiltrate and/or effusion.
[2024-04-22] MEDS: LEVALBUTEROL HCL 1.25 MG/3 ML NEB NEB SCH (12:58)
--- NOTE | 2024-04-22 13:36 | DVHPN2 ---
Progress Note - Dictate Date Seen: Apr 22, 2024 Medical Necessity Reason Pt with a Central, PICC or Fol: No The following are medically ne: Garcia Catheter Reason for garcia catheter: Bladder Retention/Obstruc Subjective Patient is clinically stable. Having low-grade temperature overnight. Patient's chest x-ray shows atelectasis. is at bedside. vital signs Vital Sign Date Time Temp Pulse Resp B/P (MAP) Pulse Ox O2 Delivery O2 Flow Rate FiO2 04/22/24 13:06 128 20 150/74 98 2.0 28 04/22/24 12:56 Nasal Cannula* 04/22/24 08:53 99.1 99.1 Total Intake and Output 04/21/24 04/21/24 04/22/24 15:00 23:00 07:00 Intake Total 420 ml 550 ml Output Total 700 ml 600 ml Balance -280 ml -50 ml medications Current Medications Medications Dose Ordered Sig/Nneka Route Start Time Stop Time Status Last Admin Dose Admin Morphine Sulfate 2 mg Q2HPRN PRN IV 04/17/24 13:00 04/22/24 11:51 2 MG Morphine Sulfate 4 mg Q2HPRN PRN IV 04/17/24 13:00 04/18/24 18:50 4 MG Nitroglycerin 0.4 mg Q5MINP PRN SL 04/17/24 13:30 Diagnostic Test (Pha) 1 strip BID 04/19/24 22:00 04/22/24 09:32 1 STRIP Pantoprazole Sodium 40 mg DAILY@0700 PO 04/21/24 07:00 04/22/24 06:04 40 MG Levothyroxine Sodium 50 mcg QAM@0600 PO 04/21/24 06:00 04/22/24 06:04 50 MCG Tamsulosin HCl 0.4 mg QPM PO 04/21/24 18:00 04/21/24 17:30 0.4 MG Acetaminophen 650 mg Q6HP PRN MD 04/22/24 00:45 Levalbuterol HCl 0.625 mg Q6HR PRN NEB 04/22/24 13:45 UNV objective Alert awake oriented to place and person. HEENT neck supple no JVD. Heart regular rate and rhythm S1-S2. Lungs without rales wheezes. Abdomen soft hypoactive bowel sounds. Extremities no edema. laboratory and microbiology Laboratory Tests 04/22/24 05:11 Test 04/22/24 05:11 Range/Units Serum Glucose 114 H 74-106 mg/dL Assessment/Plan Continue clear liquid diet as she is on. Advised the nurse to do bladder training. Start her on Flomax for urinary retention. We will use Xopenex breathing treatment for atelectasis as needed. Also continue to encourage incentive spirometry. Time lateral per rectum as needed for fever. Continue physical therapy. I will resume her home atenolol for tachycardia and high blood pressure. Continue rest of supportive care and treatment. Further management for clinical course. Discussed with the patient, as well as nurse regarding her care plan. Dietary Evaluation Review Comments: Recommend 2 G Na with Tomy BID for wound healing and Ensure High protein 240ml bid as protein-energy supplements Expected Outcomes/Goals: Maintain weight. healed wounds improved nutrition status. Plan discussed with: Patient, Spouse KEYA DUBOSE MD Apr 22, 2024 13:36
[2024-04-22] MEDS: ATENOLOL 25 MG TAB PO ONE (14:29)
[2024-04-23] VITALS (16 sets, daily range): BP systolic 104–123; BP diastolic 47–65; PULSE 74–96; RESP 16–18; TEMP 97.6–99.1; O2SAT 85–99
[2024-04-23] MEDS: LEVALBUTEROL HCL 1.25 MG/3 ML NEB NEB PRN (05:50)
[2024-04-23] MEDS ORDERED: MORPHINE SULFATE INJ 2 MG/ml SYRG IV PRN (06:00)
[2024-04-23 06:06] LABS: Anion Gap 7 (5-15); Carbon Dioxide 29 mmol/L (20-31); Chloride 105 mmol/L (98-107); Potassium 3.9 mmol/L (3.5-5.1); Sodium 141 mmol/L (136-145)
[2024-04-23 06:07] LABS: Basophils # (auto) 0 10 ^3/uL (0-0.2); Basophils % (auto) 0.2 % (0.0-2.0); Calcium 9.1 mg/dL (8.7-10.4); Eosinophils # (auto) 0.1 10 ^3/uL (0-0.8); Eosinophils % (auto) 0.3 % (0.0-7.0); Hematocrit 22.7 % (36.0-46.0); Hemoglobin 7.6 g/dL (12.2-16.2); Lymphocytes # (auto) 1.6 10 ^3/uL (0.4-5.4); Lymphocytes % (auto) 9.8 % (10.0-50.0); Mean Corpuscular Hemoglobin 29.5 pg (28.0-32.0); Mean Corpuscular Hgb Conc. 33.5 g/dL (32.0-36.0); Monocytes # (auto) 1.8 10 ^3/uL (0-1.3); Monocytes % (auto) 10.7 % (0.0-12.0); Platelet Count (auto) 261 10^3/uL (140-450); Red Blood Cells 2.58 10^6/uL (4.0-5.20); Red Cell Distribution Width 14.4 % (11.8-14.3); White Blood Cell 16.5 10^3/uL (4.4-10.8)
[2024-04-23 06:12] LABS: BUN/Creatinine Ratio 24.1 (10.0-20.0); Blood Urea Nitrogen 20 mg/dL (9-23)
[2024-04-23] MEDS: FUROSEMIDE 20 MG/2 ML VIAL IV ONE (06:12)
[2024-04-23] MEDS: TAMSULOSIN HYDROCHLORIDE 0.4 MG CAP PO ONE (06:12)
[2024-04-23 06:23] LABS: Glucose 111 mg/dL (74-106)
--- NOTE | 2024-04-23 06:33 | DVHPN2 ---
Progress Note Date Seen: Apr 23, 2024 Medical Necessity Reason Pt with a Central, PICC or Fol: No The following are medically ne: Garcia Catheter Reason for garcia catheter: Bladder Retention/Obstruc Subjective Review of Systems Pt feels much better. Denies CP, SOB,dizziness, orthostatic symptoms.N/V. Admits to passing flatus and having a small loose BM. Continues tolerating CLD Objective vital signs Vital Sign Date Time Temp Pulse Resp B/P (MAP) Pulse Ox O2 Delivery O2 Flow Rate FiO2 04/23/24 06:12 120/60 04/23/24 05:56 86 18 99 04/23/24 05:51 Nasal Cannula* 2 28 04/23/24 05:00 99.1 99.1 Total Intake and Output 04/22/24 04/22/24 04/23/24 15:00 23:00 07:00 Intake Total 1600 ml 600 ml 650 ml Output Total 750 ml 650 ml Balance 1600 ml -150 ml 0 ml medications Current Medications Medications Dose Ordered Sig/Nneka Route Start Time Stop Time Status Last Admin Dose Admin Nitroglycerin 0.4 mg Q5MINP PRN SL 04/17/24 13:30 Diagnostic Test (Pha) 1 strip BID 04/19/24 22:00 04/22/24 21:17 1 STRIP Pantoprazole Sodium 40 mg DAILY@0700 PO 04/21/24 07:00 04/23/24 06:13 40 MG Levothyroxine Sodium 50 mcg QAM@0600 PO 04/21/24 06:00 04/23/24 06:12 50 MCG Tamsulosin HCl 0.4 mg QPM PO 04/21/24 18:00 04/22/24 17:51 0.4 MG Acetaminophen 650 mg Q6HP PRN PA 04/22/24 00:45 Levalbuterol HCl 0.625 mg Q6HR PRN NEB 04/22/24 13:45 04/23/24 05:50 0.625 MG Atenolol 25 mg DAILY PO 04/23/24 10:00 Morphine Sulfate 2 mg Q2HPRN PRN IV 04/23/24 06:00 Tamsulosin HCl 0.4 mg QPM PO 04/23/24 18:00 Acetaminophen/ Hydrocodone Bitart 1 tab Q4HPRN PRN PO 04/23/24 06:00 Acetaminophen/ Hydrocodone Bitart 1 tab Q4HP PRN PO 04/23/24 06:00 Examination AFVSS. No further fevers. Abdomen soft, less distended and NT. Drain with minimal sanguineous fluid. Incision C/D/I. Stable Hgb. Leukocytosis 16. Normal electrolytes laboratory and microbiology Laboratory Tests 04/23/24 05:20 Test 04/23/24 05:20 Range/Units Serum Glucose 111 H 74-106 mg/dL Microbiology Date/Time Source Procedure Growth Status 04/17/24 17:44 Nose MRSA Screen - Final Complete Labs and/or images reviewed: Labs reviewed by me, Image(s) reviewed by me (AXR no evidence of SBO or ileus. 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 S/p 2nd look laparotomy with removal of intraabdominal packing, continuos monitoring, I/S, strict Is/Os, Mechanical DVT/GI prophylaxis, PT, Garcia replaced for urinary retention. Will remove garcia after initiating solid diet and flomax, Continue tele, Advance diet. Continue observation. Pending completions of fever work up. Ordered U/A U/C and Blood Cx yesterday and they were not carried on. Empiric Abx for leukocytosis. Lasix x 1 for pulmonary vacular congestion Plan discussed with: Patient, Other (RN) My Orders My Orders Orders - GREGOR MARTIN MD Procedure Category Date Status Time Urinalysis W/Out LAB 04/22/24 Logged Microscopic 06:56 Urine Bacterial MARTINE 04/22/24 Logged Culture 06:56 Chest Xray 1 View XY 04/22/24 Resulted 06:56 Blood Culture MARTINE 04/22/24 In Process 06:56 Kub Abdomen Single XY 04/22/24 Resulted View 06:59 Morphine Sulfate PHA 04/23/24 In Process Injection 06:00 Tamsulosin PHA 04/23/24 In Process Hydrochloride (Flomax) 18:00 Hydrocodone-Acet PHA 04/23/24 In Process 5/325mg Tab ([place] 06:00 Hydrocodone-Acet PHA 04/23/24 In Process 10/325mg Tab ([place] 06:00 Regular Diet DIET 04/23/24 Transmitted Breakfast D/C Garcia TIMBO 04/23/24 In Process 05:53 Ferrous Sulfate Tablet PHA 04/23/24 Verified 08:00 Dietary Evaluation Review Comments: Recommend 2 G Na with Tomy BID for wound healing and Ensure High protein 240ml bid as protein-energy supplements Expected Outcomes/Goals: Maintain weight. healed wounds improved nutrition status. GREGOR MARTIN MD Apr 23, 2024 06:33
[2024-04-23 07:39] LABS: Urine Blood 1+ /uL (Negative); Urine Clarity Turbid (Clear); Urine Color Colorless (Yellow); Urine Protein, UAD TRACE (Negative); Urine Specific Gravity 1.012 (1.001-1.035); Urine Urobilinogen Normal (Negative)
[2024-04-23] MEDS: PIPERACILLIN-TAZOB 3.375GM 100 ML IV SCH (09:48)
[2024-04-23] MEDS: FERROUS SULFATE 325mg EC TAB PO SCH (09:49)
[2024-04-23] MEDS: ATENOLOL 25 MG TAB PO SCH (09:50)
[2024-04-23] MEDS: HYDROcodone-ACET 10/325MG TAB PO PRN (09:55)
--- NOTE | 2024-04-23 13:02 | DVHPN2 ---
Progress Note - Dictate Date Seen: Apr 23, 2024 Medical Necessity Reason Pt with a Central, PICC or Fol: No The following are medically ne: Garcia Catheter Reason for garcia catheter: Bladder Retention/Obstruc Subjective Patient is clinically stable. Having low-grade temperature overnight. Patient's chest x-ray shows atelectasis. is at bedside. vital signs Vital Sign Date Time Temp Pulse Resp B/P (MAP) Pulse Ox O2 Delivery O2 Flow Rate FiO2 04/23/24 10:00 99 Nasal Cannula* 2 28 04/23/24 09:50 96 115/65 04/23/24 09:00 97.6 17 97.6 Total Intake and Output 04/22/24 04/22/24 04/23/24 15:00 23:00 07:00 Intake Total 1600 ml 600 ml 650 ml Output Total 750 ml 662 ml Balance 1600 ml -150 ml -12 ml medications Current Medications Medications Dose Ordered Sig/Nneka Route Start Time Stop Time Status Last Admin Dose Admin Nitroglycerin 0.4 mg Q5MINP PRN SL 04/17/24 13:30 Diagnostic Test (Pha) 1 strip BID 04/19/24 22:00 04/23/24 11:00 1 STRIP Pantoprazole Sodium 40 mg DAILY@0700 PO 04/21/24 07:00 04/23/24 06:13 40 MG Levothyroxine Sodium 50 mcg QAM@0600 PO 04/21/24 06:00 04/23/24 06:12 50 MCG Tamsulosin HCl 0.4 mg QPM PO 04/21/24 18:00 04/22/24 17:51 0.4 MG Acetaminophen 650 mg Q6HP PRN ND 04/22/24 00:45 Levalbuterol HCl 0.625 mg Q6HR PRN NEB 04/22/24 13:45 04/23/24 12:08 0.625 MG Atenolol 25 mg DAILY PO 04/23/24 10:00 04/23/24 09:50 25 MG Morphine Sulfate 2 mg Q2HPRN PRN IV 04/23/24 06:00 Tamsulosin HCl 0.4 mg QPM PO 04/23/24 18:00 Acetaminophen/ Hydrocodone Bitart 1 tab Q4HPRN PRN PO 04/23/24 06:00 Acetaminophen/ Hydrocodone Bitart 1 tab Q4HP PRN PO 04/23/24 06:00 04/23/24 09:55 1 TAB Ferrous Sulfate 325 mg TIDWM PO 04/23/24 08:00 04/23/24 11:55 325 MG Piperacillin Sod/ Tazobactam Sod 100 ml @ 25 mls/hr Q8HR IV 04/23/24 07:00 objective Alert awake oriented to place and person. HEENT neck supple no JVD. Heart regular rate and rhythm S1-S2. Lungs without rales wheezes. Abdomen soft hypoactive bowel sounds. Extremities no edema. laboratory and microbiology Laboratory Tests 04/23/24 05:20 Test 04/23/24 05:20 Range/Units Serum Glucose 111 H 74-106 mg/dL Assessment/Plan Evaluated by general surgeon this morning and started on soft diet. Patient is still has a Garcia catheter consider removing it tonight. Follow the labs in the morning. Encouraged activity and ambulation. Discussed with the patient and family at bedside. Further clinical management per clinical course. Problems(with codes): (1) Acute urinary retention (2) Perforated appendicitis (3) Malignant neoplasm of appendix (4) Atelectasis Dietary Evaluation Review Comments: Recommend 2 G Na with Tomy BID for wound healing and Ensure High protein 240ml bid as protein-energy supplements Expected Outcomes/Goals: Maintain weight. healed wounds improved nutrition status. Plan discussed with: Patient, Daughter KEYA DUBOSE MD Apr 23, 2024 13:02
[2024-04-23] MEDS: TAMSULOSIN HYDROCHLORIDE 0.4 MG CAP PO SCH (17:40)
--- NOTE | 2024-04-23 23:28 | DVHPN2 ---
Progress Note - Dictate Date Seen: Apr 23, 2024 Medical Necessity Reason Pt with a Central, PICC or Fol: Yes The following are medically ne: Garcia Catheter Reason for garcia catheter: Bladder Retention/Obstruc Subjective Patient seen and examined at bedside. Remains on supplemental oxygen Overnight events reviewed. vital signs Vital Sign Date Time Temp Pulse Resp B/P (MAP) Pulse Ox O2 Delivery O2 Flow Rate FiO2 04/23/24 22:23 98.8 81 18 105/47 (66) 96 98.8 04/23/24 18:24 Nasal Cannula 2.0 04/23/24 18:24 28 Total Intake and Output 04/22/24 04/22/24 04/23/24 15:00 23:00 07:00 Intake Total 1600 ml 600 ml 650 ml Output Total 750 ml 662 ml Balance 1600 ml -150 ml -12 ml medications Current Medications Medications Dose Ordered Sig/Nneka Route Start Time Stop Time Status Last Admin Dose Admin Nitroglycerin 0.4 mg Q5MINP PRN SL 04/17/24 13:30 Diagnostic Test (Pha) 1 strip BID 04/19/24 22:00 04/23/24 22:02 1 STRIP Pantoprazole Sodium 40 mg DAILY@0700 PO 04/21/24 07:00 04/23/24 06:13 40 MG Levothyroxine Sodium 50 mcg QAM@0600 PO 04/21/24 06:00 04/23/24 06:12 50 MCG Tamsulosin HCl 0.4 mg QPM PO 04/21/24 18:00 04/23/24 17:40 0.4 MG Acetaminophen 650 mg Q6HP PRN [place] 04/22/24 00:45 Levalbuterol HCl 0.625 mg Q6HR PRN NEB 04/22/24 13:45 04/23/24 12:08 0.625 MG Atenolol 25 mg DAILY PO 04/23/24 10:00 04/23/24 09:50 25 MG Morphine Sulfate 2 mg Q2HPRN PRN IV 04/23/24 06:00 Tamsulosin HCl 0.4 mg QPM PO 04/23/24 18:00 Acetaminophen/ Hydrocodone Bitart 1 tab Q4HPRN PRN PO 04/23/24 06:00 Acetaminophen/ Hydrocodone Bitart 1 tab Q4HP PRN PO 04/23/24 06:00 04/23/24 20:02 1 TAB Ferrous Sulfate 325 mg TIDWM PO 04/23/24 08:00 04/23/24 17:39 325 MG Piperacillin Sod/ Tazobactam Sod 100 ml @ 25 mls/hr Q8HR IV 04/23/24 07:00 04/23/24 22:00 25 MLS/HR objective Gen.: Patient lying in bed in no apparent distress. On supplemental oxygen. Head: Normocephalic, atraumatic. Eyes: EOMI/PERRLA. Ears: Normal hearing. Normal anatomy. Neck/trachea: Trachea midline, supple. Nose: Normal external anatomy. Mouth: Moist mucous membranes. Chest: Decreased air entry bilaterally. No wheezing or rhonchi. Cardiovascular: Positive S1, positive S2. Regular rate and rhythm. Abdomen: Positive bowel sounds in all 4 quadrants. Soft, non-tender, non- distended. : Deferred. Rectal: Deferred. Skin: Warm, dry. Intact. Extremities: 2+ radial pulses bilaterally. No lower extremity edema. Neuro: Awake, alert, oriented x3. No gross motor or sensory deficits. Cranial nerves II through XII intact. Gait not assessed. laboratory and microbiology Laboratory Tests 04/23/24 05:20 Test 04/23/24 05:20 Range/Units Serum Glucose 111 H 74-106 mg/dL Assessment/Plan Impression: Acute hypoxic respiratory failure Dependence on supplemental oxygen S/p hemicolectomy Appendiceal cancer Leukocytosis Events: Remains on supplemental oxygen, 2 LPM NC Taper O2 as tolerated Head of bed elevation Aspiration precautions Continue bronchodilators Started antibiotics Incentive spirometry Iron supplementation Monitor hemoglobin Pain control Avoid oversedation GI prophylaxis w/ Protonix Wound care Surgery recommendations appreciated. Labs and imaging reviewed. Rest of plan as noted below. Plan: Supplemental oxygen Titrate to keep O2 sats above 92%. Monitor hemoglobin Surgery recs appreciated Continue antibiotics Follow up cultures Incentive spirometry Pain control Avoid oversedation Monitor renal function. Monitor electrolytes. Supplement as necessary. Monitor ins and outs. DVT prophylaxis - SCDs Prognosis: Guarded given patient's multiple co-morbidities. Rest of plan per hospitalist and other consultants. Thank you, Dr. Yoo, for allowing me to participate in this patient's care. Further recommendations will depend on the patient's clinical course. Please do not hesitate to contact me if you have any questions or concerns. This medical document was created using an electronic medical record system with [employer] dictation system. Although these documentations are being carefully reviewed, there may still be some phonetic and typographical changes. The errors are purely typographical, due to imperfection on the software program, and do not reflect any compromise in the patient's medical care. Dietary Evaluation Review Comments: Recommend 2 G Na with Tomy BID for wound healing and Ensure High protein 240ml bid as protein-energy supplements Expected Outcomes/Goals: Maintain weight. healed wounds improved nutrition status. Plan discussed with: Patient, Other (BOUBACAR Healy) JOVANNA BAGLEY MD Apr 23, 2024 23:28
[2024-04-24] VITALS (15 sets, daily range): BP systolic 89–135; BP diastolic 37–56; PULSE 72–96; RESP 16–20; TEMP 97.7–98.5; O2SAT 93–98
[2024-04-24 05:55] LABS: Basophils # (auto) 0.1 10 ^3/uL (0-0.2); Basophils % (auto) 0.3 % (0.0-2.0); Eosinophils # (auto) 0.1 10 ^3/uL (0-0.8); Eosinophils % (auto) 0.5 % (0.0-7.0); Hematocrit 21.8 % (36.0-46.0); Lymphocytes # (auto) 1.2 10 ^3/uL (0.4-5.4); Lymphocytes % (auto) 6.1 % (10.0-50.0); Mean Corpuscular Hemoglobin 27.9 pg (28.0-32.0); Mean Corpuscular Hgb Conc. 32.1 g/dL (32.0-36.0); Monocytes # (auto) 1.6 10 ^3/uL (0-1.3); Monocytes % (auto) 7.8 % (0.0-12.0); Neutrophils # (auto) 17.4 10 ^3/uL (1.6-8.6); Neutrophils % (auto) 85.3 % (37.0-80.0); Nucleated Red Blood Cells % 0.1 %; Platelet Count (auto) 273 10^3/uL (140-450); Red Blood Cells 2.51 10^6/uL (4.0-5.20); Red Cell Distribution Width 14.6 % (11.8-14.3); White Blood Cell 20.4 10^3/uL (4.4-10.8)
--- NOTE | 2024-04-24 06:30 | DVHPN2 ---
Progress Note Date Seen: Apr 24, 2024 Medical Necessity Reason Pt with a Central, PICC or Fol: Yes Subjective Review of Systems Pt flles well. Denies abdominal pain, n/v, CP, SOB or orthostatic symptoms. Admits to tolerating diet, passing flatus and had 2 loose BM. Objective vital signs Vital Sign Date Time Temp Pulse Resp B/P (MAP) Pulse Ox O2 Delivery O2 Flow Rate FiO2 04/24/24 06:10 95 Nasal Cannula* 2 28 04/24/24 05:00 98.2 78 18 116/47 (70) 98.2 Total Intake and Output 04/23/24 04/23/24 04/24/24 15:00 23:00 07:00 Intake Total 600 ml 700 ml Output Total 600 ml 250 ml Balance 0 ml 450 ml medications Current Medications Medications Dose Ordered Sig/Nneka Route Start Time Stop Time Status Last Admin Dose Admin Nitroglycerin 0.4 mg Q5MINP PRN SL 04/17/24 13:30 Diagnostic Test (Pha) 1 strip BID 04/19/24 22:00 04/23/24 22:02 1 STRIP Pantoprazole Sodium 40 mg DAILY@0700 PO 04/21/24 07:00 04/24/24 06:00 40 MG Levothyroxine Sodium 50 mcg QAM@0600 PO 04/21/24 06:00 04/24/24 06:00 50 MCG Tamsulosin HCl 0.4 mg QPM PO 04/21/24 18:00 04/23/24 17:40 0.4 MG Acetaminophen 650 mg Q6HP PRN [place] 04/22/24 00:45 Levalbuterol HCl 0.625 mg Q6HR PRN NEB 04/22/24 13:45 04/23/24 12:08 0.625 MG Atenolol 25 mg DAILY PO 04/23/24 10:00 04/23/24 09:50 25 MG Morphine Sulfate 2 mg Q2HPRN PRN IV 04/23/24 06:00 Tamsulosin HCl 0.4 mg QPM PO 04/23/24 18:00 Acetaminophen/ Hydrocodone Bitart 1 tab Q4HPRN PRN PO 04/23/24 06:00 Acetaminophen/ Hydrocodone Bitart 1 tab Q4HP PRN PO 04/23/24 06:00 04/24/24 04:53 1 TAB Ferrous Sulfate 325 mg TIDWM PO 04/23/24 08:00 04/23/24 17:39 325 MG Piperacillin Sod/ Tazobactam Sod 100 ml @ 25 mls/hr Q8HR IV 04/23/24 07:00 04/24/24 06:00 25 MLS/HR Examination AFVSS. Abdomen soft, minimally distended, NT. Incision C/D/I. Drains with minimal SS fluid within the bulb. Leukocytosis 20. Cx NTD laboratory and microbiology Laboratory Tests 04/24/24 05:05 04/23/24 05:20 Test 04/23/24 05:20 Range/Units Serum Glucose 111 H 74-106 mg/dL Microbiology Date/Time Source Procedure Growth Status 04/22/24 09:43 Blood Blood Culture - Preliminary NO GROWTH AFTER 24 HOURS OF INCUBATION. 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 S/P 2nd look laparotomy with removal of intraabdominal packing, Continuos monitoring, I/S, strict Is/Os, Mechanical DVT/GI prophylaxis, PT, Continue tele, Continue diet. Continue observation.U/A suggestive of UTI. Pending U/C and Blood Cx yesterday and they were not carried on. Empiric Abx for leukocytosis. Possible PNA. Check stool for C Diff. System not allowing order to be placed because "pt LOS > 72 hrs". Pt at risk given recent Sx with antibiotic Tx and significant Leukocytosis in spite of broad spectrum Abx Tx. Wrote communication order for RN to obtain specimen to R/O C diff. Asymptomatic anemia. CBC AM. Continue FeSO4. Trying to avoid transfusion given Hx of CA. If Hgb <7 or symptomatic, will transfuse 1 U PRBC Plan discussed with: Patient, Other (RN) My Orders My Orders Orders - GREGOR MARTIN MD Procedure Category Date Status Time Ferrous Sulfate Tablet PHA 04/23/24 In Process 08:00 Piperacillin-Tazob PHA 04/23/24 In Process 3.375gm (Zosyn 3.375g 07:00 Dietary Evaluation Review Comments: Recommend 2 G Na with Tomy BID for wound healing and Ensure High protein 240ml bid as protein-energy supplements Expected Outcomes/Goals: Maintain weight. healed wounds improved nutrition status. GREGOR MARTIN MD Apr 24, 2024 06:30
[2024-04-24] MEDS: SODIUM CHLORIDE 0.9% 500 ML IV ONE (08:49)
[2024-04-24] MEDS ORDERED: metroNIDAZOLE 500MG/100ML 100 ML IV SCH (12:00)
[2024-04-24] MEDS ORDERED: MORPHINE SULFATE INJ 2 MG/ml SYRG IV PRN (14:30)
[2024-04-24] MEDS: PIPERACILLIN-TAZOB 3.375GM 100 ML IV SCH (15:18)
[2024-04-24] MEDS: metroNIDAZOLE 500MG/100ML 100 ML IV SCH (15:18)
--- NOTE | 2024-04-24 15:52 | DVHPN2 ---
Progress Note - Dictate Date Seen: Apr 24, 2024 Medical Necessity Reason Pt with a Central, PICC or Fol: Yes Subjective Patient is clinically stable. Apparently patient became hypotensive this morning. Patient's hemoglobin noted to be low at seven. Patient received fluid bolus and getting blood transfusion. No bowel movements today vital signs Vital Sign Date Time Temp Pulse Resp B/P (MAP) Pulse Ox O2 Delivery O2 Flow Rate FiO2 04/24/24 15:07 98.5 84 18 120/55 98.5 04/24/24 12:04 97 04/24/24 10:00 Nasal Cannula* 2 28 Total Intake and Output 04/23/24 04/23/24 04/24/24 15:00 23:00 07:00 Intake Total 600 ml 700 ml Output Total 600 ml 250 ml Balance 0 ml 450 ml medications Current Medications Medications Dose Ordered Sig/Nneka Route Start Time Stop Time Status Last Admin Dose Admin Nitroglycerin 0.4 mg Q5MINP PRN SL 04/17/24 13:30 Diagnostic Test (Pha) 1 strip BID 04/19/24 22:00 04/24/24 10:23 1 STRIP Pantoprazole Sodium 40 mg DAILY@0700 PO 04/21/24 07:00 04/24/24 06:00 40 MG Levothyroxine Sodium 50 mcg QAM@0600 PO 04/21/24 06:00 04/24/24 06:00 50 MCG Tamsulosin HCl 0.4 mg QPM PO 04/21/24 18:00 04/23/24 17:40 0.4 MG Acetaminophen 650 mg Q6HP PRN [place] 04/22/24 00:45 Levalbuterol HCl 0.625 mg Q6HR PRN NEB 04/22/24 13:45 04/23/24 12:08 0.625 MG Acetaminophen/ Hydrocodone Bitart 1 tab Q4HPRN PRN PO 04/23/24 06:00 Acetaminophen/ Hydrocodone Bitart 1 tab Q4HP PRN PO 04/23/24 06:00 04/24/24 10:23 1 TAB Ferrous Sulfate 325 mg TIDWM PO 04/23/24 08:00 04/24/24 14:18 325 MG Metronidazole 100 ml @ 100 mls/hr Q8HR IV 04/24/24 14:00 04/24/24 15:18 100 MLS/HR Piperacillin Sod/ Tazobactam Sod 100 ml @ 25 mls/hr Q8H IV 04/24/24 15:00 04/24/24 15:18 25 MLS/HR Morphine Sulfate 2 mg Q2HPRN PRN IV 04/24/24 14:30 objective Alert awake oriented to place and person. Family is at bedside. HEENT neck supple no JVD. Heart regular rate and rhythm S1-S2. Lungs without rales wheezes. Abdomen soft hypoactive bowel sounds. Extremities no edema. laboratory and microbiology Laboratory Tests 04/24/24 05:05 04/23/24 05:20 Test 04/23/24 05:20 Range/Units Serum Glucose 111 H 74-106 mg/dL Assessment/Plan Evaluated by general surgeon this morning and started on soft diet. Continue blood transfusion as needed to keep hemoglobin above seven. Continue IV fluids for low blood pressure. Continue current antibiotics Zosyn and we will add Flagyl for elevated white cell count. Doubt patient has C diff infection given no bowel movements today. However if she does have a bowel movement advised the nurse to send stool for WBC and culture. Otherwise continue rest of supportive care and treatment as she is on. Further clinical management per clinical course. Discussed with the patient/family along with the nurse at bedside regarding care plan. Problems(with codes): (1) Acute urinary retention (2) Perforated appendicitis (3) Malignant neoplasm of appendix (4) Anemia Dietary Evaluation Review Comments: Recommend 2 G Na with Tomy BID for wound healing and Ensure High protein 240ml bid as protein-energy supplements Expected Outcomes/Goals: Maintain weight. healed wounds improved nutrition status. Plan discussed with: Daughter, Other KEYA DUBOSE MD Apr 24, 2024 15:52
[2024-04-24] MEDS: HYDROcodone-ACET 5/325MG TAB PO PRN (20:14)
--- NOTE | 2024-04-24 23:16 | DVHPN2 ---
Progress Note - Dictate Date Seen: Apr 24, 2024 Medical Necessity Reason Pt with a Central, PICC or Fol: Yes The following are medically ne: Garcia Catheter Reason for garcia catheter: Strict I&O Subjective Patient seen and examined at bedside. Remains on supplemental oxygen Overnight events reviewed. vital signs Vital Sign Date Time Temp Pulse Resp B/P (MAP) Pulse Ox O2 Delivery O2 Flow Rate FiO2 04/24/24 20:49 97.7 94 19 135/55 (81) 93 97.7 04/24/24 19:08 Nasal Cannula 1.5 04/24/24 19:08 24 Total Intake and Output 04/23/24 04/23/24 04/24/24 15:00 23:00 07:00 Intake Total 600 ml 700 ml Output Total 600 ml 250 ml Balance 0 ml 450 ml medications Current Medications Medications Dose Ordered Sig/Nneka Route Start Time Stop Time Status Last Admin Dose Admin Nitroglycerin 0.4 mg Q5MINP PRN SL 04/17/24 13:30 Diagnostic Test (Pha) 1 strip BID 04/19/24 22:00 04/24/24 21:57 1 STRIP Pantoprazole Sodium 40 mg DAILY@0700 PO 04/21/24 07:00 04/24/24 06:00 40 MG Levothyroxine Sodium 50 mcg QAM@0600 PO 04/21/24 06:00 04/24/24 06:00 50 MCG Tamsulosin HCl 0.4 mg QPM PO 04/21/24 18:00 04/24/24 18:29 0.4 MG Acetaminophen 650 mg Q6HP PRN [place] 04/22/24 00:45 Levalbuterol HCl 0.625 mg Q6HR PRN NEB 04/22/24 13:45 04/23/24 12:08 0.625 MG Acetaminophen/ Hydrocodone Bitart 1 tab Q4HPRN PRN PO 04/23/24 06:00 04/24/24 20:14 1 TAB Acetaminophen/ Hydrocodone Bitart 1 tab Q4HP PRN PO 04/23/24 06:00 04/24/24 10:23 1 TAB Ferrous Sulfate 325 mg TIDWM PO 04/23/24 08:00 04/24/24 18:29 325 MG Metronidazole 100 ml @ 100 mls/hr Q8HR IV 04/24/24 14:00 04/24/24 21:56 100 MLS/HR Piperacillin Sod/ Tazobactam Sod 100 ml @ 25 mls/hr Q8H IV 04/24/24 15:00 04/24/24 22:50 25 MLS/HR Morphine Sulfate 2 mg Q2HPRN PRN IV 04/24/24 14:30 objective Gen.: Patient lying in bed in no apparent distress. On supplemental oxygen. Head: Normocephalic, atraumatic. Eyes: EOMI/PERRLA. Ears: Normal hearing. Normal anatomy. Neck/trachea: Trachea midline, supple. Nose: Normal external anatomy. Mouth: Moist mucous membranes. Chest: Decreased air entry bilaterally. No wheezing or rhonchi. Cardiovascular: Positive S1, positive S2. Regular rate and rhythm. Abdomen: Positive bowel sounds in all 4 quadrants. Soft, non-tender, non- distended. : Deferred. Rectal: Deferred. Skin: Warm, dry. Intact. Extremities: 2+ radial pulses bilaterally. No lower extremity edema. Neuro: Awake, alert, oriented x3. No gross motor or sensory deficits. Cranial nerves II through XII intact. Gait not assessed. 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 Continue antibiotics Incentive spirometry WBC of 20 K. Pain control Avoid oversedation GI prophylaxis w/ Protonix Wound care LISA drain removed by Surgery Surgery recommendations appreciated. Labs and imaging reviewed. Rest of plan as noted below. Plan: Supplemental oxygen Titrate to keep O2 sats above 92%. Monitor hemoglobin Surgery recs appreciated Continue antibiotics Follow up cultures Incentive spirometry Pain control Avoid oversedation Monitor renal function. Monitor electrolytes. Supplement as necessary. Monitor ins and outs. DVT prophylaxis - SCDs Prognosis: Guarded given patient's multiple co-morbidities. Rest of plan per hospitalist and other consultants. Thank you, Dr. Yoo, for allowing me to participate in this patient's care. Further recommendations will depend on the patient's clinical course. Please do not hesitate to contact me if you have any questions or concerns. This medical document was created using an electronic medical record system with [employer] dictation system. Although these documentations are being carefully reviewed, there may still be some phonetic and typographical changes. The errors are purely typographical, due to imperfection on the software program, and do not reflect any compromise in the patient's medical care. Dietary Evaluation Review Comments: Recommend 2 G Na with Tomy BID for wound healing and Ensure High protein 240ml bid as protein-energy supplements Expected Outcomes/Goals: Maintain weight. healed wounds improved nutrition status. Plan discussed with: Patient, Other (BOUBACAR Fuentes) JOVANNA BAGLEY MD Apr 24, 2024 23:16
[2024-04-25] VITALS (10 sets, daily range): BP systolic 54–159; BP diastolic 54–74; PULSE 73–107; RESP 15–18; TEMP 97.6–98.8; O2SAT 90–97
--- NOTE | 2024-04-25 07:10 | DVHPN2 ---
Progress Note Date Seen: Apr 25, 2024 Medical Necessity Reason Pt with a Central, PICC or Fol: Yes The following are medically ne: Garcia Catheter Reason for garcia catheter: Strict I&O Subjective Review of Systems Pt feels well. Denies N/V or further BM. Continues tolerating diet. Objective vital signs Vital Sign Date Time Temp Pulse Resp B/P (MAP) Pulse Ox O2 Delivery O2 Flow Rate FiO2 04/25/24 05:00 97.8 89 17 129/68 (88) 95 97.8 04/24/24 20:00 Nasal Cannula* 2 28 Total Intake and Output 04/24/24 04/24/24 04/25/24 15:00 23:00 07:00 Intake Total 1285 ml 600 ml Output Total 675 ml Balance 610 ml 600 ml medications Current Medications Medications Dose Ordered Sig/Nneka Route Start Time Stop Time Status Last Admin Dose Admin Nitroglycerin 0.4 mg Q5MINP PRN SL 04/17/24 13:30 Diagnostic Test (Pha) 1 strip BID 04/19/24 22:00 04/24/24 21:57 1 STRIP Pantoprazole Sodium 40 mg DAILY@0700 PO 04/21/24 07:00 04/25/24 06:02 40 MG Levothyroxine Sodium 50 mcg QAM@0600 PO 04/21/24 06:00 04/25/24 05:34 50 MCG Tamsulosin HCl 0.4 mg QPM PO 04/21/24 18:00 04/24/24 18:29 0.4 MG Acetaminophen 650 mg Q6HP PRN [place] 04/22/24 00:45 Acetaminophen/ Hydrocodone Bitart 1 tab Q4HPRN PRN PO 04/23/24 06:00 04/25/24 03:26 1 TAB Acetaminophen/ Hydrocodone Bitart 1 tab Q4HP PRN PO 04/23/24 06:00 04/24/24 23:34 1 TAB Ferrous Sulfate 325 mg TIDWM PO 04/23/24 08:00 04/24/24 18:29 325 MG Metronidazole 100 ml @ 100 mls/hr Q8HR IV 04/24/24 14:00 04/25/24 05:34 100 MLS/HR Piperacillin Sod/ Tazobactam Sod 100 ml @ 25 mls/hr Q8H IV 04/24/24 15:00 04/25/24 06:41 25 MLS/HR Morphine Sulfate 2 mg Q2HPRN PRN IV 04/24/24 14:30 Examination AFVSS. No further episodes of fever. Abdomen soft, mildly distended and minimally tender. Incision C/D/I. Labs pending. Blood Cx NTD. UCx GNR, possible Enterococcus. Labs pending. laboratory and microbiology Laboratory Tests 04/24/24 05:05 04/23/24 05:20 Test 04/23/24 05:20 Range/Units Serum Glucose 111 H 74-106 mg/dL Microbiology Date/Time Source Procedure Growth Status 04/23/24 06:30 Urine - Catheterized Urine Culture - Preliminary Resulted 04/22/24 09:43 Blood Blood Culture - Preliminary NO GROWTH AFTER 48 HOURS OF INCUBATION. 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 S/P 2nd look laparotomy with removal of intraabdominal packing, Continuos monitoring, I/S, strict Is/Os, Mechanical DVT/GI prophylaxis, PT, Continue tele, Continue diet. Continue observation.U/A and UCx suggestive of UTI. Perliminary U/Cx GNR, possible Enterococcus. Likelly from reinsertion of Garcia after developing urinary retention. Blood Cx NTD. Empiric Abx for leukocytosis. Pending labs after 1 u PRBC for anemia. Possible PNA. pending C Diff? System not allowing order to be placed because "pt LOS > 72 hrs". Pt at risk given recent Sx with antibiotic Tx and significant Leukocytosis in spite of broad spectrum Abx Tx. Wrote communication order for RN to obtain specimen to R/O C diff. Patient became hypotensive and symptomatic yesterday after rounds. Continue FeSO4. Plan discussed with: Patient My Orders My Orders Orders - GREGOR MARTIN MD Procedure Category Date Status Time Morphine Sulfate PHA 04/24/24 In Process Injection 14:30 Dietary Evaluation Review Comments: Recommend 2 G Na with Tomy BID for wound healing and Ensure High protein 240ml bid as protein-energy supplements Expected Outcomes/Goals: Maintain weight. healed wounds improved nutrition status. GREGOR MARTIN MD Apr 25, 2024 07:10
[2024-04-25 07:34] LABS: Chloride 104 mmol/L (98-107); Sodium 139 mmol/L (136-145)
[2024-04-25 07:35] LABS: Anion Gap 8 (5-15); Carbon Dioxide 27 mmol/L (20-31)
[2024-04-25 07:36] LABS: Calcium 8.8 mg/dL (8.7-10.4)
[2024-04-25 07:40] LABS: BUN/Creatinine Ratio 20.6 (10.0-20.0); Blood Urea Nitrogen 22 mg/dL (9-23)
[2024-04-25 07:43] LABS: Basophils # (auto) 0.1 10 ^3/uL (0-0.2); Basophils % (auto) 0.4 % (0.0-2.0); Eosinophils # (auto) 0.1 10 ^3/uL (0-0.8); Eosinophils % (auto) 0.7 % (0.0-7.0); Hematocrit 25.9 % (36.0-46.0); Hemoglobin 8.5 g/dL (12.2-16.2); Lymphocytes # (auto) 0.9 10 ^3/uL (0.4-5.4); Lymphocytes % (auto) 4.8 % (10.0-50.0); Mean Corpuscular Hemoglobin 28.7 pg (28.0-32.0); Mean Corpuscular Volume 87.2 fL (80.0-100.0); Monocytes # (auto) 1.2 10 ^3/uL (0-1.3); Monocytes % (auto) 6.2 % (0.0-12.0); Neutrophils # (auto) 17.1 10 ^3/uL (1.6-8.6); Neutrophils % (auto) 87.9 % (37.0-80.0); Nucleated Red Blood Cells % 0.1 %; Platelet Count (auto) 304 10^3/uL (140-450); Red Blood Cells 2.97 10^6/uL (4.0-5.20); White Blood Cell 19.5 10^3/uL (4.4-10.8)
[2024-04-25 07:44] LABS: Glucose 116 mg/dL (74-106); Potassium 3.2 mmol/L (3.5-5.1)
[2024-04-25] MEDS ORDERED: POTASSIUM CHL 20MEQ/100ML 100 ML IV ONE (11:00)
[2024-04-25] MEDS: POTASSIUM CHL 20MEQ/100ML 100 ML IV SCH (11:31)
--- NOTE | 2024-04-25 12:08 | DVHPN2 ---
Progress Note - Dictate Date Seen: Apr 25, 2024 Medical Necessity Reason Pt with a Central, PICC or Fol: Yes The following are medically ne: Garcia Catheter Reason for garcia catheter: Strict I&O Subjective Patient is clinically stable. Blood pressure is normal. Passing gas but no bowel movements. Tolerating soft diet vital signs Vital Sign Date Time Temp Pulse Resp B/P (MAP) Pulse Ox O2 Delivery O2 Flow Rate FiO2 04/25/24 08:49 97.6 73 16 129/74 (92) 92 97.6 04/25/24 08:00 Nasal Cannula* 2 28 Total Intake and Output 04/24/24 04/24/24 04/25/24 15:00 23:00 07:00 Intake Total 1285 ml 600 ml Output Total 675 ml Balance 610 ml 600 ml medications Current Medications Medications Dose Ordered Sig/Nneka Route Start Time Stop Time Status Last Admin Dose Admin Nitroglycerin 0.4 mg Q5MINP PRN SL 04/17/24 13:30 Diagnostic Test (Pha) 1 strip BID 04/19/24 22:00 04/25/24 11:47 1 STRIP Pantoprazole Sodium 40 mg DAILY@0700 PO 04/21/24 07:00 04/25/24 06:02 40 MG Levothyroxine Sodium 50 mcg QAM@0600 PO 04/21/24 06:00 04/25/24 05:34 50 MCG Tamsulosin HCl 0.4 mg QPM PO 04/21/24 18:00 04/24/24 18:29 0.4 MG Acetaminophen 650 mg Q6HP PRN [place] 04/22/24 00:45 Acetaminophen/ Hydrocodone Bitart 1 tab Q4HPRN PRN PO 04/23/24 06:00 04/25/24 03:26 1 TAB Acetaminophen/ Hydrocodone Bitart 1 tab Q4HP PRN PO 04/23/24 06:00 04/24/24 23:34 1 TAB Metronidazole 100 ml @ 100 mls/hr Q8HR IV 04/24/24 14:00 04/25/24 05:34 100 MLS/HR Piperacillin Sod/ Tazobactam Sod 100 ml @ 25 mls/hr Q8H IV 04/24/24 15:00 04/25/24 06:41 25 MLS/HR Morphine Sulfate 2 mg Q2HPRN PRN IV 04/24/24 14:30 Potassium Chloride 100 ml @ 50 mls/hr Q2H IV 04/25/24 11:00 04/25/24 14:59 04/25/24 11:31 50 MLS/HR Ferrous Sulfate 325 mg DAILY PO 04/26/24 10:00 objective Alert awake oriented to place and person. Family is at bedside. HEENT neck supple no JVD. Heart regular rate and rhythm S1-S2. Lungs without rales wheezes. Abdomen soft hypoactive bowel sounds. Extremities no edema. laboratory and microbiology Laboratory Tests 04/25/24 06:51 Test 04/25/24 06:51 Range/Units Serum Glucose 116 H 74-106 mg/dL Assessment/Plan Evaluated by general surgeon this morning and started on soft diet. Hemoglobin is stable. Blood pressure is normal. Urinating normal now after removing the catheter yesterday. Continue current treatment and care plan as she is on. I will cut down the iron tablets to once a day given a risk of constipation. Discussed with the nurse regarding care plan Problems(with codes): (1) Atelectasis (2) Perforated appendicitis (3) Malignant neoplasm of appendix (4) Anemia Dietary Evaluation Review Comments: Recommend 2 G Na with Tomy BID for wound healing and Ensure High protein 240ml bid as protein-energy supplements Expected Outcomes/Goals: Maintain weight. healed wounds improved nutrition status. Plan discussed with: Other KEYA DUBOSE MD Apr 25, 2024 12:08
[2024-04-25] MEDS: POTASSIUM CHL 20MEQ/100ML 100 ML IV ONE (13:49)
--- NOTE | 2024-04-25 14:48 | DVHPN2 ---
Progress Note - Dictate Date Seen: Apr 25, 2024 Medical Necessity Reason Pt with a Central, PICC or Fol: Yes The following are medically ne: Garcia Catheter Reason for garcia catheter: Strict I&O vital signs Vital Sign Date Time Temp Pulse Resp B/P (MAP) Pulse Ox O2 Delivery O2 Flow Rate FiO2 04/25/24 13:21 98.2 95 18 136/59 (84) 90 98.2 04/25/24 10:00 Nasal Cannula* 1 24 Total Intake and Output 04/24/24 04/24/24 04/25/24 15:00 23:00 07:00 Intake Total 1285 ml 600 ml Output Total 675 ml Balance 610 ml 600 ml medications Current Medications Medications Dose Ordered Sig/Nneka Route Start Time Stop Time Status Last Admin Dose Admin Nitroglycerin 0.4 mg Q5MINP PRN SL 04/17/24 13:30 Diagnostic Test (Pha) 1 strip BID 04/19/24 22:00 04/25/24 11:47 1 STRIP Pantoprazole Sodium 40 mg DAILY@0700 PO 04/21/24 07:00 04/25/24 06:02 40 MG Levothyroxine Sodium 50 mcg QAM@0600 PO 04/21/24 06:00 04/25/24 05:34 50 MCG Tamsulosin HCl 0.4 mg QPM PO 04/21/24 18:00 04/24/24 18:29 0.4 MG Acetaminophen 650 mg Q6HP PRN AR 04/22/24 00:45 Acetaminophen/ Hydrocodone Bitart 1 tab Q4HPRN PRN PO 04/23/24 06:00 04/25/24 03:26 1 TAB Acetaminophen/ Hydrocodone Bitart 1 tab Q4HP PRN PO 04/23/24 06:00 04/24/24 23:34 1 TAB Metronidazole 100 ml @ 100 mls/hr Q8HR IV 04/24/24 14:00 04/25/24 05:34 100 MLS/HR Piperacillin Sod/ Tazobactam Sod 100 ml @ 25 mls/hr Q8H IV 04/24/24 15:00 04/25/24 06:41 25 MLS/HR Morphine Sulfate 2 mg Q2HPRN PRN IV 04/24/24 14:30 Potassium Chloride 100 ml @ 50 mls/hr Q2H IV 04/25/24 11:00 04/25/24 14:59 04/25/24 13:21 50 MLS/HR Ferrous Sulfate 325 mg DAILY PO 04/26/24 10:00 laboratory and microbiology Laboratory Tests 04/25/24 06:51 Test 04/25/24 06:51 Range/Units Serum Glucose 116 H 74-106 mg/dL Assessment/Plan Acute hypoxic respiratory failure 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 Continue antibiotics Incentive spirometry Pain control Avoid oversedation GI prophylaxis w/ Protonix Wound care LISA drain removed by Surgery Surgery recommendations appreciated. Labs and imaging reviewed. Rest of plan as noted below. Plan: Supplemental oxygen Titrate to keep O2 sats above 92%. Monitor hemoglobin Surgery recs appreciated Continue antibiotics Follow up cultures Incentive spirometry Pain control Avoid oversedation Monitor renal function. Monitor electrolytes. Supplement as necessary. Monitor ins and outs. DVT prophylaxis - SCDs Dietary Evaluation Review Comments: Recommend 2 G Na with Tomy BID for wound healing and Ensure High protein 240ml bid as protein-energy supplements Expected Outcomes/Goals: Maintain weight. healed wounds improved nutrition status. Plan discussed with: Patient ANGELICA SCHULTZ MD Apr 25, 2024 14:48
[2024-04-25] MEDS: ACETAMINOPHEN 325 MG TAB PO PRN (18:54)
--- NOTE | 2024-04-25 21:11 | DVH ---
Procedure: XY KUB ABDOMEN SINGLE VIEW Exam Date: 04/25/2024 08:07 PM History: Abdominal pain Comparison Study: None Technique: AP of the chest AP upright of the abdomen AP supine of the abdomen Findings/ impression: Nonspecific bowel-gas pattern. Elevated right hemidiaphragm. Lung bases are cl ear. Surgical mckayla overlying the midabdomen. No acute osseous abnormalities .
[2024-04-25] MEDS: MILK OF MAGNESIA 30ML SUSP PO SCH (22:07)
[2024-04-26] VITALS (9 sets, daily range): BP systolic 128–157; BP diastolic 56–81; PULSE 63–98; RESP 16–20; TEMP 97.8–99.7; O2SAT 95–97
--- NOTE | 2024-04-26 07:22 | DVHPN2 ---
Progress Note Date Seen: Apr 26, 2024 Medical Necessity Reason Pt with a Central, PICC or Fol: No Reason for garcia catheter: Strict I&O Subjective Review of Systems She feels better. Denies N/V, pain orBM. Admits to passing flatus and tolerating CLD. Objective vital signs Vital Sign Date Time Temp Pulse Resp B/P (MAP) Pulse Ox O2 Delivery O2 Flow Rate FiO2 04/26/24 05:00 99.7 94 18 145/81 (102) 96 99.7 04/25/24 20:00 Nasal Cannula* 2 28 Total Intake and Output 04/25/24 04/25/24 04/26/24 15:00 23:00 07:00 Intake Total 200 ml 745 ml 850 ml Output Total 1700 ml 500 ml Balance 200 ml -955 ml 350 ml medications Current Medications Medications Dose Ordered Sig/Nneka Route Start Time Stop Time Status Last Admin Dose Admin Nitroglycerin 0.4 mg Q5MINP PRN SL 04/17/24 13:30 Diagnostic Test (Pha) 1 strip BID 04/19/24 22:00 04/25/24 22:08 1 STRIP Pantoprazole Sodium 40 mg DAILY@0700 PO 04/21/24 07:00 04/26/24 05:36 40 MG Levothyroxine Sodium 50 mcg QAM@0600 PO 04/21/24 06:00 04/26/24 05:36 50 MCG Tamsulosin HCl 0.4 mg QPM PO 04/21/24 18:00 04/25/24 18:03 0.4 MG Acetaminophen/ Hydrocodone Bitart 1 tab Q4HPRN PRN PO 04/23/24 06:00 04/25/24 03:26 1 TAB Acetaminophen/ Hydrocodone Bitart 1 tab Q4HP PRN PO 04/23/24 06:00 04/24/24 23:34 1 TAB Metronidazole 100 ml @ 100 mls/hr Q8HR IV 04/24/24 14:00 04/26/24 05:36 100 MLS/HR Piperacillin Sod/ Tazobactam Sod 100 ml @ 25 mls/hr Q8H IV 04/24/24 15:00 04/26/24 06:31 25 MLS/HR Morphine Sulfate 2 mg Q2HPRN PRN IV 04/24/24 14:30 Ferrous Sulfate 325 mg DAILY PO 04/26/24 10:00 Acetaminophen 650 mg Q6HP PRN PO 04/25/24 18:15 04/26/24 07:03 650 MG Magnesium Hydroxide 30 ml DAILY PO 04/25/24 22:00 04/25/24 22:07 30 ML Examination AFVSS. T Max 101 last night.Abdomen soft, mildly distended and NT. Labs pending. UCx: E coli and Enterococcus. laboratory and microbiology Laboratory Tests 04/25/24 06:51 Test 04/25/24 06:51 Range/Units Serum Glucose 116 H 74-106 mg/dL Microbiology Date/Time Source Procedure Growth Status 04/23/24 06:30 Urine - Catheterized Urine Culture - Final Escherichia coli Enterococcus faecalis Complete 04/22/24 09:43 Blood Blood Culture - Preliminary NO GROWTH AFTER 72 HOURS OF INCUBATION. 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 S/P 2nd look laparotomy with removal of intraabdominal packing, Continuos monitoring, I/S, strict Is/Os, Mechanical DVT/GI prophylaxis, PT, Continue tele, Continue diet. Continue observation.U/A and Pansensitive UCx E Coli.Enterococcus UTI, likely from reinsertion of Garcia after developing urinary retention. Blood Cx NTD. .Anemia responded adequately to 1 u PRBC. Pending todya's labs. Possible PNA. pending C Diff? System not allowing order to be placed because "pt LOS > 72 hrs". Pt at risk given recent Sx with antibiotic Tx and significant Leukocytosis in spite of broad spectrum Abx Tx. Wrote communication order for RN to obtain specimen to R/O C diff. Continue FeSO4. Plan discussed with: Patient My Orders My Orders Orders - GREGOR MARTIN MD Procedure Category Date Status Time Acetaminophen Tablet PHA 04/25/24 In Process (Tylenol Tablet) 18:15 Magnesium Hydroxide PHA 04/25/24 In Process Suspension (Milk Of 22:00 Kub Abdomen Single XY 04/25/24 Resulted View 19:43 Dietary Evaluation Review Comments: Recommend 2 G Na with Tomy BID for wound healing and Ensure High protein 240ml bid as protein-energy supplements Expected Outcomes/Goals: Maintain weight. healed wounds improved nutrition status. GREGOR MARTIN MD Apr 26, 2024 07:22
[2024-04-26 07:29] LABS: Basophils # (auto) 0 10 ^3/uL (0-0.2); Basophils % (auto) 0.1 % (0.0-2.0); Eosinophils # (auto) 0 10 ^3/uL (0-0.8); Eosinophils % (auto) 0.1 % (0.0-7.0); Hematocrit 26.6 % (36.0-46.0); Hemoglobin 8.6 g/dL (12.2-16.2); Lymphocytes % (auto) 4.3 % (10.0-50.0); Mean Corpuscular Hemoglobin 28.8 pg (28.0-32.0); Mean Corpuscular Hgb Conc. 32.4 g/dL (32.0-36.0); Mean Corpuscular Volume 88.9 fL (80.0-100.0); Monocytes # (auto) 1.6 10 ^3/uL (0-1.3); Monocytes % (auto) 6.8 % (0.0-12.0); Neutrophils # (auto) 20.5 10 ^3/uL (1.6-8.6); Neutrophils % (auto) 88.7 % (37.0-80.0); Nucleated Red Blood Cells % 0.1 %; Platelet Count (auto) 327 10^3/uL (140-450); Red Blood Cells 2.99 10^6/uL (4.0-5.20); White Blood Cell 23.1 10^3/uL (4.4-10.8)
[2024-04-26] MEDS: FERROUS SULFATE 325mg EC TAB PO SCH (10:55)
--- NOTE | 2024-04-26 12:25 | DVHPN2 ---
Progress Note - Dictate Date Seen: Apr 26, 2024 Medical Necessity Reason Pt with a Central, PICC or Fol: No Reason for garcia catheter: Strict I&O vital signs Vital Sign Date Time Temp Pulse Resp B/P (MAP) Pulse Ox O2 Delivery O2 Flow Rate FiO2 04/26/24 09:00 97.9 98 16 128/57 (80) 95 97.9 04/25/24 20:00 Nasal Cannula* 2 28 Total Intake and Output 04/25/24 04/25/24 04/26/24 15:00 23:00 07:00 Intake Total 200 ml 745 ml 850 ml Output Total 1700 ml 500 ml Balance 200 ml -955 ml 350 ml medications Current Medications Medications Dose Ordered Sig/Nneka Route Start Time Stop Time Status Last Admin Dose Admin Nitroglycerin 0.4 mg Q5MINP PRN SL 04/17/24 13:30 Diagnostic Test (Pha) 1 strip BID 04/19/24 22:00 04/26/24 10:00 1 STRIP Pantoprazole Sodium 40 mg DAILY@0700 PO 04/21/24 07:00 04/26/24 05:36 40 MG Levothyroxine Sodium 50 mcg QAM@0600 PO 04/21/24 06:00 04/26/24 05:36 50 MCG Tamsulosin HCl 0.4 mg QPM PO 04/21/24 18:00 04/25/24 18:03 0.4 MG Acetaminophen/ Hydrocodone Bitart 1 tab Q4HPRN PRN PO 04/23/24 06:00 04/25/24 03:26 1 TAB Acetaminophen/ Hydrocodone Bitart 1 tab Q4HP PRN PO 04/23/24 06:00 04/24/24 23:34 1 TAB Metronidazole 100 ml @ 100 mls/hr Q8HR IV 04/24/24 14:00 04/26/24 05:36 100 MLS/HR Piperacillin Sod/ Tazobactam Sod 100 ml @ 25 mls/hr Q8H IV 04/24/24 15:00 04/26/24 06:31 25 MLS/HR Morphine Sulfate 2 mg Q2HPRN PRN IV 04/24/24 14:30 Ferrous Sulfate 325 mg DAILY PO 04/26/24 10:00 04/26/24 10:55 325 MG Acetaminophen 650 mg Q6HP PRN PO 04/25/24 18:15 04/26/24 07:03 650 MG Magnesium Hydroxide 30 ml DAILY PO 04/25/24 22:00 04/25/24 22:07 30 ML laboratory and microbiology Laboratory Tests 04/26/24 06:38 Test 04/26/24 12:11 Range/Units Serum Glucose Pending Assessment/Plan Acute hypoxic respiratory failure 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 Continue antibiotics Incentive spirometry Pain control Avoid oversedation GI prophylaxis w/ Protonix Wound care LISA drain removed by Surgery Surgery recommendations appreciated. Labs and imaging reviewed. Rest of plan as noted below. Plan: Supplemental oxygen Titrate to keep O2 sats above 92%. Monitor hemoglobin Surgery recs appreciated Continue antibiotics Follow up cultures Incentive spirometry Pain control Avoid oversedation Monitor renal function. Monitor electrolytes. Supplement as necessary. Monitor ins and outs. DVT prophylaxis - SCDs Dietary Evaluation Review Comments: Recommend 2 G Na with Tomy BID for wound healing and Ensure High protein 240ml bid as protein-energy supplements Expected Outcomes/Goals: Maintain weight. healed wounds improved nutrition status. Plan discussed with: Patient ANGELICA SCHULTZ MD Apr 26, 2024 12:25
[2024-04-26 12:51] LABS: Alanine Aminotransferase 30 U/L (7-40); Alkaline Phosphatase 114 U/L (46-116); Anion Gap 9 (5-15); Aspartate Aminotransferase 24 U/L (13-40); BUN/Creatinine Ratio 15.6 (10.0-20.0); Blood Urea Nitrogen 14 mg/dL (9-23); Carbon Dioxide 27 mmol/L (20-31); Chloride 106 mmol/L (98-107); Sodium 142 mmol/L (136-145)
[2024-04-26 12:52] LABS: Bilirubin, Total 0.8 mg/dL (0.2-1.0)
[2024-04-26 13:27] LABS: Albumin 3.2 g/dL (3.2-4.8); Calcium 8.6 mg/dL (8.7-10.4); Glucose 148 mg/dL (74-106); Total Protein 5.6 g/dL (5.7-8.2)
[2024-04-26] MEDS ORDERED: POTASSIUM CHL 20MEQ/100ML 100 ML IV ONE (14:00)
[2024-04-26] MEDS: POTASSIUM CHL 20 Meq TABLET PO ONE (14:19)
[2024-04-26] MEDS ORDERED: levoFLOXacin 500MG 100 ML IV ONE (14:30)
--- NOTE | 2024-04-26 14:31 | DVHPN2 ---
Progress Note - Dictate Date Seen: Apr 26, 2024 Medical Necessity Reason Pt with a Central, PICC or Fol: No Reason for garcia catheter: Strict I&O Subjective Patient is clinically stable. Blood pressure is normal. Passing gas but no bowel movements. Tolerating soft diet vital signs Vital Sign Date Time Temp Pulse Resp B/P (MAP) Pulse Ox O2 Delivery O2 Flow Rate FiO2 04/26/24 13:00 97.8 63 16 145/56 (85) 95 97.8 04/26/24 10:00 Nasal Cannula* 2 28 Total Intake and Output 04/25/24 04/25/24 04/26/24 15:00 23:00 07:00 Intake Total 200 ml 745 ml 850 ml Output Total 1700 ml 500 ml Balance 200 ml -955 ml 350 ml medications Current Medications Medications Dose Ordered Sig/Nneka Route Start Time Stop Time Status Last Admin Dose Admin Nitroglycerin 0.4 mg Q5MINP PRN SL 04/17/24 13:30 Diagnostic Test (Pha) 1 strip BID 04/19/24 22:00 04/26/24 10:00 1 STRIP Pantoprazole Sodium 40 mg DAILY@0700 PO 04/21/24 07:00 04/26/24 05:36 40 MG Levothyroxine Sodium 50 mcg QAM@0600 PO 04/21/24 06:00 04/26/24 05:36 50 MCG Tamsulosin HCl 0.4 mg QPM PO 04/21/24 18:00 04/25/24 18:03 0.4 MG Acetaminophen/ Hydrocodone Bitart 1 tab Q4HPRN PRN PO 04/23/24 06:00 04/25/24 03:26 1 TAB Acetaminophen/ Hydrocodone Bitart 1 tab Q4HP PRN PO 04/23/24 06:00 04/24/24 23:34 1 TAB Metronidazole 100 ml @ 100 mls/hr Q8HR IV 04/24/24 14:00 04/26/24 14:19 100 MLS/HR Piperacillin Sod/ Tazobactam Sod 100 ml @ 25 mls/hr Q8H IV 04/24/24 15:00 04/26/24 06:31 25 MLS/HR Morphine Sulfate 2 mg Q2HPRN PRN IV 04/24/24 14:30 Ferrous Sulfate 325 mg DAILY PO 04/26/24 10:00 04/26/24 10:55 325 MG Acetaminophen 650 mg Q6HP PRN PO 04/25/24 18:15 04/26/24 07:03 650 MG Magnesium Hydroxide 30 ml DAILY PO 04/25/24 22:00 04/25/24 22:07 30 ML objective Alert awake oriented to place and person. Family is at bedside. HEENT neck supple no JVD. Heart regular rate and rhythm S1-S2. Lungs without rales wheezes. Abdomen soft hypoactive bowel sounds. Extremities no edema. laboratory and microbiology Laboratory Tests 04/26/24 12:11 04/26/24 06:38 Test 04/26/24 12:11 Range/Units Serum Glucose 148 H 74-106 mg/dL Assessment/Plan Still leukocytosis but no fever. Her urine cultures came back growing multiple organisms. Based on the sensitivities we will start her on IV Levaquin and DC Zosyn and Flagyl. Follow the labs in the morning. We will get an EKG to eval QT interval given she was going to be on quinolone antibiotic. Otherwise continue rest of supportive care and treatment. Follow clinical management per clinical course. Discussed with the nurse regarding care plan. Dietary Evaluation Review Comments: Recommend 2 G Na with Tomy BID for wound healing and Ensure High protein 240ml bid as protein-energy supplements Expected Outcomes/Goals: Maintain weight. healed wounds improved nutrition status. Plan discussed with: Other KEYA DUBOSE MD Apr 26, 2024 14:31
[2024-04-26] MEDS ORDERED: levoFLOXacin 500 MG TAB PO ONE (16:15)
[2024-04-26] MEDS: CIPROFLOXACIN 400MG/200ML 200 ML IV SCH (16:39)
[2024-04-27] VITALS (9 sets, daily range): BP systolic 131–157; BP diastolic 62–75; PULSE 91–113; RESP 14–20; TEMP 98.1–99.3; O2SAT 92–96
[2024-04-27 07:52] LABS: Alanine Aminotransferase 28 U/L (7-40); Albumin 3.2 g/dL (3.2-4.8); Alkaline Phosphatase 111 U/L (46-116); Anion Gap 12 (5-15); Aspartate Aminotransferase 24 U/L (13-40); BUN/Creatinine Ratio 13.9 (10.0-20.0); Bilirubin, Total 0.7 mg/dL (0.2-1.0); Blood Urea Nitrogen 10 mg/dL (9-23); Carbon Dioxide 25 mmol/L (20-31); Chloride 104 mmol/L (98-107); Glucose 100 mg/dL (74-106); Magnesium 1.7 mg/dL (1.6-2.6); Sodium 141 mmol/L (136-145); Total Protein 5.7 g/dL (5.7-8.2)
--- NOTE | 2024-04-27 07:53 | DVHPN2 ---
Progress Note Date Seen: Apr 27, 2024 Medical Necessity Reason Pt with a Central, PICC or Fol: No Subjective Review of Systems Pt feels well. Denies pain. [place] is too strong for her. Denies N/V or distention. Passing flatus and had several green BM. Objective vital signs Vital Sign Date Time Temp Pulse Resp B/P (MAP) Pulse Ox O2 Delivery O2 Flow Rate FiO2 04/27/24 05:00 99.3 94 19 150/69 (96) 94 99.3 04/26/24 20:00 Nasal Cannula* 2 28 Total Intake and Output 04/26/24 04/26/24 04/27/24 15:00 23:00 07:00 Intake Total 1220 ml 800 ml Balance 1220 ml 800 ml medications Current Medications Medications Dose Ordered Sig/Nneka Route Start Time Stop Time Status Last Admin Dose Admin Nitroglycerin 0.4 mg Q5MINP PRN SL 04/17/24 13:30 Diagnostic Test (Pha) 1 strip BID 04/19/24 22:00 04/26/24 22:09 1 STRIP Pantoprazole Sodium 40 mg DAILY@0700 PO 04/21/24 07:00 04/27/24 05:48 40 MG Levothyroxine Sodium 50 mcg QAM@0600 PO 04/21/24 06:00 04/27/24 05:48 50 MCG Tamsulosin HCl 0.4 mg QPM PO 04/21/24 18:00 04/26/24 17:20 0.4 MG Acetaminophen/ Hydrocodone Bitart 1 tab Q4HPRN PRN PO 04/23/24 06:00 04/25/24 03:26 1 TAB Acetaminophen/ Hydrocodone Bitart 1 tab Q4HP PRN PO 04/23/24 06:00 04/24/24 23:34 1 TAB Morphine Sulfate 2 mg Q2HPRN PRN IV 04/24/24 14:30 Ferrous Sulfate 325 mg DAILY PO 04/26/24 10:00 04/26/24 10:55 325 MG Acetaminophen 650 mg Q6HP PRN PO 04/25/24 18:15 04/26/24 17:20 650 MG Magnesium Hydroxide 30 ml DAILY PO 04/25/24 22:00 04/25/24 22:07 30 ML Ciprofloxacin 200 ml @ 200 mls/hr Q12HR IV 04/26/24 16:30 04/26/24 22:09 200 MLS/HR Examination AFVSS. Abdomen soft, ND and NT. Incision C/D/I. Labs pending laboratory and microbiology Test 04/27/24 05:10 Range/Units Serum Glucose Pending Microbiology Date/Time Source Procedure Growth Status 04/23/24 06:30 Urine - Catheterized Urine Culture - Final Escherichia coli Enterococcus faecalis Complete 04/22/24 09:43 Blood Blood Culture - Preliminary NO GROWTH AFTER 72 HOURS OF INCUBATION. 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 S/P 2nd look laparotomy with removal of intraabdominal packing, Continuos monitoring, I/S, strict Is/Os, Mechanical DVT/GI prophylaxis, PT, Continue tele, Continue diet. UCx Pansensintive E Coli.Enterococcus UTI, likely from reinsertion of [place] after developing urinary retention. Blood Cx NTD. .Anemia stable. Pending today's labs. Pending C Diff? System not allowing order to be placed because "pt LOS > 72 hrs". Pt at risk given recent Sx with antibiotic Tx and significant Leukocytosis in spite of broad spectrum Abx Tx. Wrote communication order for RN to obtain specimen to R/O C diff. Specimen sent. No records on computer. Continue FeSO4. Check K. D/C planning pending WBC improvement. May have food from home. Instructed RN to call with labs results. Plan discussed with: Patient My Orders My Orders Orders - GREGOR MARTIN MD Procedure Category Date Status Time Complete Blood Count LAB 04/27/24 In Process 04:00 Comprehensive LAB 04/27/24 In Process Metabolic Panel 04:00 Magnesium LAB 04/27/24 In Process 04:00 Dietary Evaluation Review Comments: Recommend 2 G Na with Tomy BID for wound healing and Ensure High protein 240ml bid as protein-energy supplements Expected Outcomes/Goals: Maintain weight. healed wounds improved nutrition status. GREGOR MARTIN MD Apr 27, 2024 07:52
[2024-04-27 08:32] LABS: Basophils # (auto) 0 10 ^3/uL (0-0.2); Basophils % (auto) 0.1 % (0.0-2.0); Eosinophils # (auto) 0 10 ^3/uL (0-0.8); Eosinophils % (auto) 0.1 % (0.0-7.0); Hematocrit 26.4 % (36.0-46.0); Hemoglobin 8.6 g/dL (12.2-16.2); Lymphocytes # (auto) 0.8 10 ^3/uL (0.4-5.4); Lymphocytes % (auto) 3.8 % (10.0-50.0); Mean Corpuscular Hemoglobin 28.2 pg (28.0-32.0); Mean Corpuscular Hgb Conc. 32.7 g/dL (32.0-36.0); Mean Corpuscular Volume 86.3 fL (80.0-100.0); Monocytes # (auto) 1.4 10 ^3/uL (0-1.3); Monocytes % (auto) 6.2 % (0.0-12.0); Neutrophils # (auto) 19.8 10 ^3/uL (1.6-8.6); Neutrophils % (auto) 89.8 % (37.0-80.0); Nucleated Red Blood Cells % 0.1 %; Platelet Count (auto) 371 10^3/uL (140-450); Red Blood Cells 3.06 10^6/uL (4.0-5.20); Red Cell Distribution Width 14.9 % (11.8-14.3); White Blood Cell 22.1 10^3/uL (4.4-10.8)
[2024-04-27] MEDS ORDERED: levoFLOXacin 500 MG TAB PO SCH (10:00)
[2024-04-27] MEDS ORDERED: levoFLOXacin 500MG 100 ML IV SCH (10:00)
[2024-04-27] MEDS: VANCOMYCIN HCL 250 MG CAP PO SCH (13:09)
--- NOTE | 2024-04-27 16:56 | DVHPN2 ---
Progress Note - Dictate Date Seen: Apr 27, 2024 Medical Necessity Reason Pt with a Central, PICC or Fol: No Subjective Patient is clinically stable. Blood pressure is normal. C diff sent yesterday came back positive. vital signs Vital Sign Date Time Temp Pulse Resp B/P (MAP) Pulse Ox O2 Delivery O2 Flow Rate FiO2 04/27/24 16:34 98.9 96 14 148/75 (99) 92 98.9 04/27/24 10:00 Nasal Cannula* 1 24 Total Intake and Output 04/26/24 04/26/24 04/27/24 15:00 23:00 07:00 Intake Total 1220 ml 800 ml Balance 1220 ml 800 ml medications Current Medications Medications Dose Ordered Sig/Nneka Route Start Time Stop Time Status Last Admin Dose Admin Nitroglycerin 0.4 mg Q5MINP PRN SL 04/17/24 13:30 Diagnostic Test (Pha) 1 strip BID 04/19/24 22:00 04/27/24 09:49 1 STRIP Pantoprazole Sodium 40 mg DAILY@0700 PO 04/21/24 07:00 04/27/24 05:48 40 MG Levothyroxine Sodium 50 mcg QAM@0600 PO 04/21/24 06:00 04/27/24 05:48 50 MCG Tamsulosin HCl 0.4 mg QPM PO 04/21/24 18:00 04/26/24 17:20 0.4 MG Acetaminophen/ Hydrocodone Bitart 1 tab Q4HPRN PRN PO 04/23/24 06:00 04/25/24 03:26 1 TAB Acetaminophen/ Hydrocodone Bitart 1 tab Q4HP PRN PO 04/23/24 06:00 04/24/24 23:34 1 TAB Morphine Sulfate 2 mg Q2HPRN PRN IV 04/24/24 14:30 Ferrous Sulfate 325 mg DAILY PO 04/26/24 10:00 04/27/24 09:49 325 MG Acetaminophen 650 mg Q6HP PRN PO 04/25/24 18:15 04/26/24 17:20 650 MG Magnesium Hydroxide 30 ml DAILY PO 04/25/24 22:00 04/25/24 22:07 30 ML Ciprofloxacin 200 ml @ 200 mls/hr Q12HR IV 04/26/24 16:30 04/27/24 09:49 200 MLS/HR Vancomycin HCl 250 mg QID PO 04/27/24 12:30 04/27/24 13:09 250 MG objective Alert awake oriented to place and person. Family is at bedside. HEENT neck supple no JVD. Heart regular rate and rhythm S1-S2. Lungs without rales wheezes. Abdomen soft hypoactive bowel sounds. Extremities no edema. laboratory and microbiology Laboratory Tests 04/27/24 05:10 Test 04/27/24 05:10 Range/Units Serum Glucose 100 74-106 mg/dL Assessment/Plan Continue IV Cipro for her UTI. Given C diff is positive start her on oral vancomycin. Otherwise continue rest of supportive care and treatment. Further clinical management per clinical course. Discussed with the nurse regarding care plan. Dietary Evaluation Review Comments: Recommend 2 G Na with Tomy BID for wound healing and Ensure High protein 240ml bid as protein-energy supplements Expected Outcomes/Goals: Maintain weight. healed wounds improved nutrition status. Plan discussed with: Other KYEA DUBOSE MD Apr 27, 2024 16:56
--- NOTE | 2024-04-27 22:56 | DVHPN2 ---
Progress Note - Dictate Date Seen: Apr 27, 2024 Medical Necessity Reason Pt with a Central, PICC or Fol: No Subjective Patient seen and examined at bedside. Remains on supplemental oxygen Overnight events reviewed. vital signs Vital Sign Date Time Temp Pulse Resp B/P (MAP) Pulse Ox O2 Delivery O2 Flow Rate FiO2 04/27/24 21:00 98.9 99 20 144/66 (92) 92 98.9 04/27/24 10:00 Nasal Cannula* 1 24 Total Intake and Output 04/26/24 04/26/24 04/27/24 15:00 23:00 07:00 Intake Total 1220 ml 800 ml Balance 1220 ml 800 ml medications Current Medications Medications Dose Ordered Sig/Nneka Route Start Time Stop Time Status Last Admin Dose Admin Nitroglycerin 0.4 mg Q5MINP PRN SL 04/17/24 13:30 Diagnostic Test (Pha) 1 strip BID 04/19/24 22:00 04/27/24 21:12 1 STRIP Pantoprazole Sodium 40 mg DAILY@0700 PO 04/21/24 07:00 04/27/24 05:48 40 MG Levothyroxine Sodium 50 mcg QAM@0600 PO 04/21/24 06:00 04/27/24 05:48 50 MCG Tamsulosin HCl 0.4 mg QPM PO 04/21/24 18:00 04/27/24 17:41 0.4 MG Acetaminophen/ Hydrocodone Bitart 1 tab Q4HPRN PRN PO 04/23/24 06:00 04/25/24 03:26 1 TAB Acetaminophen/ Hydrocodone Bitart 1 tab Q4HP PRN PO 04/23/24 06:00 04/24/24 23:34 1 TAB Morphine Sulfate 2 mg Q2HPRN PRN IV 04/24/24 14:30 Ferrous Sulfate 325 mg DAILY PO 04/26/24 10:00 04/27/24 09:49 325 MG Acetaminophen 650 mg Q6HP PRN PO 04/25/24 18:15 04/26/24 17:20 650 MG Magnesium Hydroxide 30 ml DAILY PO 04/25/24 22:00 04/25/24 22:07 30 ML Ciprofloxacin 200 ml @ 200 mls/hr Q12HR IV 04/26/24 16:30 04/27/24 21:12 200 MLS/HR Vancomycin HCl 250 mg QID PO 04/27/24 12:30 04/27/24 21:12 250 MG objective Gen.: Patient lying in bed in no apparent distress. On supplemental oxygen. Head: Normocephalic, atraumatic. Eyes: EOMI/PERRLA. Ears: Normal hearing. Normal anatomy. Neck/trachea: Trachea midline, supple. Nose: Normal external anatomy. Mouth: Moist mucous membranes. Chest: Decreased air entry bilaterally. No wheezing or rhonchi. Cardiovascular: Positive S1, positive S2. Regular rate and rhythm. Abdomen: Positive bowel sounds in all 4 quadrants. Soft, non-tender, non- distended. : Deferred. Rectal: Deferred. Skin: Warm, dry. Intact. Extremities: 2+ radial pulses bilaterally. No lower extremity edema. Neuro: Awake, alert, oriented x3. No gross motor or sensory deficits. Cranial nerves II through XII intact. Gait not assessed. 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 diff positive. Continue antibiotics Incentive spirometry Head of bed elevation Aspiration precautions Iron supplementation Hemoglobin stable, continue to monitor Monitor blood pressure. Monitor WBC - 22.1 GI prophylaxis w/ Protonix Wound care LISA drain removed by Surgery Surgery recommendations appreciated. Labs and imaging reviewed. Rest of plan as noted below. Plan: Supplemental oxygen Titrate to keep O2 sats above 92%. Monitor hemoglobin Surgery recs appreciated Continue antibiotics Follow up cultures Incentive spirometry Pain control as needed Avoid oversedation Monitor renal function. Monitor electrolytes. Supplement as necessary. Monitor ins and outs. DVT prophylaxis - SCDs Prognosis: Guarded given patient's multiple co-morbidities. Rest of plan per hospitalist and other consultants. Thank you, Dr. Yoo, for allowing me to participate in this patient's care. Further recommendations will depend on the patient's clinical course. Please do not hesitate to contact me if you have any questions or concerns. This medical document was created using an electronic medical record system with [employer] dictation system. Although these documentations are being carefully reviewed, there may still be some phonetic and typographical changes. The errors are purely typographical, due to imperfection on the software program, and do not reflect any compromise in the patient's medical care. Dietary Evaluation Review Comments: Recommend 2 G Na with Tomy BID for wound healing and Ensure High protein 240ml bid as protein-energy supplements Expected Outcomes/Goals: Maintain weight. healed wounds improved nutrition status. Plan discussed with: Patient, Other (BOUBACAR Raymond) JOVANNA BAGLEY MD Apr 27, 2024 22:56
[2024-04-28] VITALS (7 sets, daily range): BP systolic 128–147; BP diastolic 62–72; PULSE 89–109; RESP 16–20; TEMP 98.1–99.5; O2SAT 91–94
--- NOTE | 2024-04-28 06:11 | DVHPN2 ---
Progress Note Date Seen: Apr 28, 2024 Medical Necessity Reason Pt with a Central, PICC or Fol: No Subjective Review of Systems Pt feels well. No complaints. Denies N/V, she is tolerating diet. Admits to passing flatus and loose BM, but not frequent Objective vital signs Vital Sign Date Time Temp Pulse Resp B/P (MAP) Pulse Ox O2 Delivery O2 Flow Rate FiO2 04/28/24 05:00 99.5 109 20 142/67 (92) 91 99.5 04/27/24 20:00 Nasal Cannula* 1 24 Total Intake and Output 04/27/24 04/27/24 04/28/24 15:00 23:00 07:00 Intake Total 200 ml 200 ml 280 ml Balance 200 ml 200 ml 280 ml medications Current Medications Medications Dose Ordered Sig/Nneka Route Start Time Stop Time Status Last Admin Dose Admin Nitroglycerin 0.4 mg Q5MINP PRN SL 04/17/24 13:30 Diagnostic Test (Pha) 1 strip BID 04/19/24 22:00 04/27/24 21:12 1 STRIP Pantoprazole Sodium 40 mg DAILY@0700 PO 04/21/24 07:00 04/28/24 05:56 40 MG Levothyroxine Sodium 50 mcg QAM@0600 PO 04/21/24 06:00 04/28/24 05:50 50 MCG Tamsulosin HCl 0.4 mg QPM PO 04/21/24 18:00 04/27/24 17:41 0.4 MG Acetaminophen/ Hydrocodone Bitart 1 tab Q4HPRN PRN PO 04/23/24 06:00 04/25/24 03:26 1 TAB Acetaminophen/ Hydrocodone Bitart 1 tab Q4HP PRN PO 04/23/24 06:00 04/24/24 23:34 1 TAB Morphine Sulfate 2 mg Q2HPRN PRN IV 04/24/24 14:30 Ferrous Sulfate 325 mg DAILY PO 04/26/24 10:00 04/27/24 09:49 325 MG Acetaminophen 650 mg Q6HP PRN PO 04/25/24 18:15 04/26/24 17:20 650 MG Magnesium Hydroxide 30 ml DAILY PO 04/25/24 22:00 04/25/24 22:07 30 ML Ciprofloxacin 200 ml @ 200 mls/hr Q12HR IV 04/26/24 16:30 04/27/24 21:12 200 MLS/HR Vancomycin HCl 250 mg QID PO 04/27/24 12:30 04/28/24 05:50 250 MG Examination AFVSS. TMax 99.5 5 AM yesterday. Adbomen soft, mildly distended and NT. Incision C/D/I. Labs reviewed. C diff positive. laboratory and microbiology Laboratory Tests 04/27/24 05:10 Test 04/27/24 05:10 Range/Units Serum Glucose 100 74-106 mg/dL Microbiology Date/Time Source Procedure Growth Status 04/26/24 11:48 Stool Stool Culture - Preliminary Resulted 04/26/24 11:48 Stool Shiga Toxin I & II - Final Resulted 04/23/24 06:30 Urine - Catheterized Urine Culture - Final Escherichia coli Enterococcus faecalis Complete 04/22/24 09:43 Blood Blood Culture - Final NO GROWTH AFTER 5 DAYS OF INCUBATION. 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 S/P 2nd look laparotomy with removal of intraabdominal packing, Continuos monitoring, I/S, strict Is/Os, Mechanical DVT/GI prophylaxis, PT, Continue tele, Continue diet. UCx Pansensintive E Coli.Enterococcus UTI, likely from reinsertion of Fagan after developing urinary retention. Blood Cx NTD. .Anemia stable. Hypokalemia. Stable Anemia. Leukocytosis. Pending today's labs.As suspected, C diff positive, which explains persistent leukocytosis. Continue FeSO4. D/C planning. May have food from home. May shower. Pt may be discharged home today from surgical standpoint, will d/w Dr. Sheikh. Plan discussed with: Patient (RN) Dietary Evaluation Review Comments: Recommend 2 G Na with Tomy BID for wound healing and Ensure High protein 240ml bid as protein-energy supplements Expected Outcomes/Goals: Maintain weight. healed wounds improved nutrition status. GREGOR MARTIN MD Apr 28, 2024 06:11
[2024-04-28 08:48] LABS: Basophils # (auto) 0 10 ^3/uL (0-0.2); Basophils % (auto) 0.2 % (0.0-2.0); Eosinophils # (auto) 0 10 ^3/uL (0-0.8); Eosinophils % (auto) 0.2 % (0.0-7.0); Hematocrit 27.5 % (36.0-46.0); Hemoglobin 8.6 g/dL (12.2-16.2); Lymphocytes # (auto) 1.3 10 ^3/uL (0.4-5.4); Lymphocytes % (auto) 6.8 % (10.0-50.0); Mean Corpuscular Hemoglobin 27.1 pg (28.0-32.0); Mean Corpuscular Hgb Conc. 31.2 g/dL (32.0-36.0); Mean Corpuscular Volume 86.9 fL (80.0-100.0); Monocytes # (auto) 1.7 10 ^3/uL (0-1.3); Monocytes % (auto) 8.5 % (0.0-12.0); Neutrophils # (auto) 16.6 10 ^3/uL (1.6-8.6); Neutrophils % (auto) 84.3 % (37.0-80.0); Platelet Count (auto) 417 10^3/uL (140-450); Red Blood Cells 3.16 10^6/uL (4.0-5.20); Red Cell Distribution Width 15.3 % (11.8-14.3); White Blood Cell 19.7 10^3/uL (4.4-10.8)
[2024-04-28 10:19] LABS: Anion Gap 11 (5-15); Carbon Dioxide 25 mmol/L (20-31); Chloride 104 mmol/L (98-107); Sodium 140 mmol/L (136-145)
[2024-04-28 10:26] LABS: BUN/Creatinine Ratio 14.1 (10.0-20.0); Blood Urea Nitrogen 10 mg/dL (9-23); Magnesium 1.7 mg/dL (1.6-2.6)
[2024-04-28 10:32] LABS: Glucose 106 mg/dL (74-106); Potassium 3.3 mmol/L (3.5-5.1)
[2024-04-28] MEDS ORDERED: VANC250C4 PO (13:23)
[2024-04-28] MEDS ORDERED: CIPR500T4 PO (13:23)
--- NOTE | 2024-04-28 13:24 | DVHDS2 ---
Discharge Summary Date of Admission Apr 17, 2024 at 13:27 Date of Discharge: Apr 28, 2024 Labs/Diagnostic Data: Laboratory Results Test 04/28/24 08:20 04/27/24 21:17 04/27/24 05:10 04/23/24 06:30 White Blood Count 19.7 10^3/uL (4.4-10.8) Red Blood Count 3.16 10^6/uL (4.0-5.20) Hemoglobin 8.6 g/dL (12.2-16.2) Hematocrit 27.5 % (36.0-46.0) Mean Corpuscular Volume 86.9 fL (80.0-100.0) Mean Corpuscular Hemoglobin 27.1 pg (28.0-32.0) Mean Corpuscular Hemoglobin Concent 31.2 g/dL (32.0-36.0) Red Cell Distribution Width 15.3 % (11.8-14.3) Platelet Count 417 10^3/uL (140-450) Mean Platelet Volume 7.9 fL (6.9-10.8) Neutrophils (%) (Auto) 84.3 % (37.0-80.0) Lymphocytes (%) (Auto) 6.8 % (10.0-50.0) Monocytes (%) (Auto) 8.5 % (0.0-12.0) Eosinophils (%) (Auto) 0.2 % (0.0-7.0) Basophils (%) (Auto) 0.2 % (0.0-2.0) Neutrophils # (Auto) 16.6 10 ^3/uL (1.6-8.6) Lymphocytes # (Auto) 1.3 10 ^3/uL (0.4-5.4) Monocytes # (Auto) 1.7 10 ^3/uL (0-1.3) Eosinophils # (Auto) 0 10 ^3/uL (0-0.8) Basophils # (Auto) 0 10 ^3/uL (0-0.2) Nucleated Red Blood Cells 0.0 % Sodium Level 140 mmol/L (136-145) Potassium Level 3.3 mmol/L (3.5-5.1) Chloride Level 104 mmol/L (98-107) Carbon Dioxide Level 25 mmol/L (20-31) Anion Gap 11 (5-15) Blood Urea Nitrogen 10 mg/dL (9-23) Creatinine 0.71 mg/dL (0.550-1.02) Glomerular Filtration Rate Calc 90 mL/min (>90) BUN/Creatinine Ratio 14.1 (10.0-20.0) Serum Glucose 106 mg/dL (74-106) Calcium Level 9.0 mg/dL (8.7-10.4) Magnesium Level 1.7 mg/dL (1.6-2.6) POC Glucose 138 mg/dl (70-106) Total Bilirubin 0.7 mg/dL (0.2-1.0) Aspartate Amino Transferase (AST) 24 U/L (13-40) Alanine Aminotransferase (ALT) 28 U/L (7-40) Alkaline Phosphatase 111 U/L (46-116) Total Protein 5.7 g/dL (5.7-8.2) Albumin 3.2 g/dL (3.2-4.8) Urine Color Colorless (Yellow) Urine Clarity Turbid (Clear) Urine pH 6.0 (5.0-9.0) Urine Specific [place] 1.012 (1.001-1.035) Urine Protein Trace (Negative) Urine Ketones Negative (Negative) Urine Blood 1+ /uL (Negative) Urine Nitrite 2+ (Negative) Urine Bilirubin Negative (Negative) Urine Urobilinogen Normal mg/dL (Negative) Urine Leukocyte Esterase 3+ /uL (Negative) Urine Glucose Normal mg/dL (Normal) Test 04/17/24 13:24 Prothrombin Time 12.0 sec (9.3-11.8) Prothrombin Time INR 1.15 (0.9-1.15) Activated Partial Thromboplast Time 27.6 SEC (24.5-34.5) Fibrinogen 385 mg/dL (177-375) Other Laboratory Tests 04/28/24 08:20 Brief Hx & Hospital Course: A 74-year-old woman with known past medical history of hypertension, dyslipidemia, hypothyroidism, recent hospitalization at [facility] for perforated appendicitis with abscess which was not amenable for drainage - treated with IV antibiotics and resolved, history of C diff colitis which was treated; who was 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 Donal elizalde was admitted and hospitalist consultation is requested for evaluation and management while in the hospital given she belongs to [employer] [facility]. Currently she is in the ICU post to surgery. Comfortable in bed. No complaints. Family is at bedside. During this hospitalization she was followed by internal medicine/hospitalist. Patient postop pulmonary and surgery velasco did well. However patient had a urinary retention postop therefore had a Fagan catheter inserted subsequently bladder training was done it was removed. However urinalysis came back positive for urinary tract infection for which she was on IV antibiotics. Subsequent to that patient has started having diarrhea. Therefore stool studies including C diff was sent which came back positive as well. Therefore she was started on oral vancomycin. Patient is also noted to be hypotensive postop for which she received IV fluids. Her electrolytes have been corrected aggressively. Subsequently all her symptoms and issues have been resolved. Patient voiding urine without any issues. With oral vancomycin her diarrhea has improved. Patient is tolerating her diet. Her white cell count is improved. She is afebrile. Blood pressure is normalized. Therefore she was re-evaluated by surgeon felt she was stable to be discharged home. I have re-evaluated her as well and given the patient is feeling better back to baseline normal status it is felt she could be safely discharged home with the finish her antibiotic course for UTI and C diff colitis. Patient is advised to follow up with the her surgery and primary care physician. I have talked with the patient along with her family at bedside regarding her hospital diagnosis, treatment she received, discharge medications, discharge instructions and follow-up plan of care. They have verbalized understanding of these and agree with the care plan as mentioned. Operations or Procedures Attending Phy: CLIVE MARTIN MD DATE OF SURGERY: 04/19/2024 PREOPERATIVE DIAGNOSES: Appendiceal cancer, status post right hemicolectomy with intra-abdominal packing secondary to intractable bleeding. POSTOPERATIVE DIAGNOSES: Appendiceal cancer, status post right hemicolectomy with intra-abdominal packing secondary to intractable bleeding. PROCEDURE: Second look laparotomy with removal of intraabdominal packing. SURGEON: Clive Yoo MD PER DIEM PHYSICAL THERAPIST ASSISTANT: None. ANESTHESIOLOGIST: Dr. Law. ANESTHESIA: General by means of endotracheal intubation. INTRAOPERATIVE FINDINGS: Three lap pads within the abdominal cavity, which were removed at the completion of the procedure following a number of very small oozing, which was controlled with FloSeal and Surgicel SNoW. ESTIMATED BLOOD LOSS: Approximately 100 mL. IV FLUIDS: Per anesthesia charting. URINE OUTPUT: Per RN charting. DRAINS: A 19-Tony drain. IMPLANTS: Surgiflo and Surgicel SNoW. SPECIMENS: None. COMPLICATIONS: None. DISPOSITION: Procedure well tolerated and transferred to the recovery room in stable condition. INDICATIONS FOR PROCEDURE: The patient is a 74-year-old female with a history of appendiceal cancer, undergoing the right hemicolectomy on 04/17/2024. Intraoperatively, the patient developed intractable bleeding; therefore, she was packed with a planned procedure to return in approximately 48 hours to remove the packing. The patient was recommended to undergo a second look laparotomy with removal of packing. The procedure, risks and benefits were explained in a detailed and extensive fashion. All questions were answered. She understood and agreed to proceed. DESCRIPTION OF PROCEDURE: The patient was taken to the operating room, placed in the dorsal decubitus position on the operating room table. Once adequate anesthesia was achieved, the abdomen was widely prepped and draped in a sterile fashion. She received prophylactic antibiotics. My attention was directed towards the midline incision where the mckayla were removed. The skin was opened by the edges, gaining access to the fascial suture, which was cut with the Hansen scissors. The suture was unraveled and removed giving me access to the peritoneal cavity. At this time, the abdominal cavity was inspected. There was no evidence of active bleeding. The abdominal cavity was copiously irrigated/____ with sterile saline solution and the intra-abdominal packings were carefully individually removed in order to avoid iatrogenically caused bleeding. The laparoscope was successfully removed, identifying very small oozing in the right upper quadrant peritoneal reflection. This was easily controlled with Surgiflo and SNoW as well as 1 gram of tranexamic acid. Pressure was held for approximately 7 minutes after application of the Surgiflo and SNoW. The area was inspected. There was no active bleeding at this time. A 19-Tony drain was placed in the right upper quadrant region overlying the area of concern. It was exteriorized via the left upper quadrant previous trocar site. The drain was secured to the skin by means of 2-0 silk suture. The abdominal cavity was once again inspected. There was no evidence of active bleeding or injury. The anastomosis was patent and viable without any evidence of leak or any other abnormality. The fascia was closed with double-stranded 0 PDS suture. The skin was closed with mckayla. The patient tolerated well the procedure. There were no complications. She was successfully extubated in the operating room and transferred to recovery room in stable condition. Clive Yoo MD WBVanessa/GRICELDA/ANIA TID: [id number] RECEIPT: [id number] Condition at Discharge: Stable Final Diagnosis/Problems List C diff colitis, UTI, status post appendix surgery Secondary Diagnosis: Appendiceal cancer, status post right hemicolectomy with intra-abdominal packing secondary to intractable bleeding. Discharge Disposition: Home Discharge Instruct/Medications Diet: Consistent carbohydrate, Cardiac 2g Na,low cholest Activity: No Restrictions, As Tolerated Follow Up/Referral: Dr. Saul Yoo general surgeon next week follow up surgery. Follow up with primary care physician in two weeks for C diff colitis and UTI Medications: Take antibiotics as prescribed and home medications as you were taking prior to admission New Medications: Ciprofloxacin Hcl (Ciprofloxacin Hcl) 500 Mg Tab 1 TAB PO BID, #10 TAB Vancomycin HCl (Vancomycin HCl) 250 Mg Cap 250 MG PO QID, #40 CAP Continued Medications: Ascorbic Acid (Vitamin C Tablet) 500 Mg Tb 1000 MG PO DAILY, TAB Atenolol (Atenolol) 25 Mg Tab 1 TAB PO DAILY Atorvastatin Calcium (Lipitor) 20 Mg Tab 20 MG PO DAILY, TAB Cholecalciferol (D3 2000) 2,000 Unit Cap 2000 UNIT PO DAILY, CAP Iron W/ Vitamins (Geritol Complete) Complete Tab 1 OR DAILY, TAB Levothyroxine Sodium (Synthroid Tablet) 50 Mcg Tb 50 MCG PO DAILY, TAB Naloxone HCl (Narcan) 4 Mg/0.1 Ml Spr 4 MG NA PEOPLESOFT ANALYST, #2 SPRAY Discharge Statement: "Patient was advised to return to the ER or call 911 if any headaches, dizziness, shortness of breath, chest pain, abdominal pain, bleeding, fevers, or worsening of medical condition. Patient was counseled about treatment plan, medications, possible side effects, patientverbalized understanding. All questions were answered to the best of my ability. This discharge took greater then 30 minutes in planning, reviewing documentation, counseling the patient, and discussing with other team members." ASSESSMENT ASSESSMENT Assessment C diff colitis, UTI, status post appendix surgery KEYA DUBOSE MD Apr 28, 2024 13:24
--- NOTE | 2024-04-28 17:28 | DVHPN2 ---
Progress Note - Dictate Date Seen: Apr 28, 2024 Medical Necessity Reason Pt with a Central, PICC or Fol: No Subjective Patient seen and examined at bedside. Remains on supplemental oxygen Overnight events reviewed. vital signs Vital Sign Date Time Temp Pulse Resp B/P (MAP) Pulse Ox O2 Delivery O2 Flow Rate FiO2 04/28/24 15:40 98.1 96 16 94 04/28/24 13:00 128/63 (84) 04/28/24 10:00 Room Air* 0 21 Total Intake and Output 04/27/24 04/27/24 04/28/24 15:00 23:00 07:00 Intake Total 200 ml 200 ml 280 ml Balance 200 ml 200 ml 280 ml objective Gen.: Patient lying in bed in no apparent distress. On supplemental oxygen. Head: Normocephalic, atraumatic. Eyes: EOMI/PERRLA. Ears: Normal hearing. Normal anatomy. Neck/trachea: Trachea midline, supple. Nose: Normal external anatomy. Mouth: Moist mucous membranes. Chest: Decreased air entry bilaterally. No wheezing or rhonchi. Cardiovascular: Positive S1, positive S2. Regular rate and rhythm. Abdomen: Positive bowel sounds in all 4 quadrants. Soft, non-tender, non- distended. : Deferred. Rectal: Deferred. Skin: Warm, dry. Intact. Extremities: 2+ radial pulses bilaterally. No lower extremity edema. Neuro: Awake, alert, oriented x3. No gross motor or sensory deficits. Cranial nerves II through XII intact. Gait not assessed. laboratory and microbiology Laboratory Tests 04/28/24 08:20 Test 04/28/24 08:20 Range/Units Serum Glucose 106 74-106 mg/dL Assessment/Plan Impression: Acute hypoxic respiratory failure, resolved Dependence on supplemental oxygen, resolved S/p hemicolectomy Appendiceal cancer Leukocytosis Events: On room air C. diff positive. Complete antibiotics Incentive spirometry Head of bed elevation Aspiration precautions Iron supplementation Hemoglobin stable, continue to monitor Monitor blood pressure. Monitor WBC - 22.1 GI prophylaxis w/ Protonix Wound care LISA drain removed by Surgery Surgery recommendations appreciated. Labs and imaging reviewed. Rest of plan as noted below. Dispo: Per hospitalist. Plan: Supplemental oxygen Titrate to keep O2 sats above 92%. Monitor hemoglobin Surgery recs appreciated Continue antibiotics Follow up cultures Incentive spirometry Pain control as needed Avoid oversedation Monitor renal function. Monitor electrolytes. Supplement as necessary. Monitor ins and outs. DVT prophylaxis - SCDs Prognosis: Guarded given patient's multiple co-morbidities. Rest of plan per hospitalist and other consultants. Thank you, Dr. Yoo, for allowing me to participate in this patient's care. Further recommendations will depend on the patient's clinical course. Please do not hesitate to contact me if you have any questions or concerns. This medical document was created using an electronic medical record system with [employer] dictation system. Although these documentations are being carefully reviewed, there may still be some phonetic and typographical changes. The errors are purely typographical, due to imperfection on the software program, and do not reflect any compromise in the patient's medical care. Dietary Evaluation Review Comments: Recommend 2 G Na with Tomy BID for wound healing and Ensure High protein 240ml bid as protein-energy supplements Expected Outcomes/Goals: Maintain weight. healed wounds improved nutrition status. Plan discussed with: Other (BOUBACAR Raymond) JOVANNA BAGLEY MD Apr 28, 2024 17:28
== END 2024-04-28 16:10 | disposition home or self-care (01) | DRG 329 ==
LOC: SUR 07:04 → TELE 13:27 → ICU WEST 16:28 → OVERFLOW 16:29 → ICU WEST 17:53 → TELE-EAST 04-20 13:38 → OVERFLOW 04-21 14:56 → EAST 04-21 15:05 → OVERFLOW 04-22 12:48 → TELE-EAST 04-22 12:54
PROVIDERS: ATTEND Hospitalist
PROC: 0DTF4ZZ Resection of Right Large Intestine, Percutaneous Endoscopic Approach (ICD-10-PCS; principal; 2024-04-17 09:24)
PROC: 2W53X5Z Removal of Packing Material on Abdominal Wall (ICD-10-PCS; 2024-04-19)
PROC: 30233N1 Transfusion of Nonautologous Red Blood Cells into Peripheral Vein, Percutaneous Approach (ICD-10-PCS; 2024-04-24)
DX: C18.1 Malignant neoplasm of appendix (principal); J96.01 Acute respiratory failure with hypoxia; K35.32 Acute appendicitis with perforation, localized peritonitis, and gangrene, without abscess; K68.3 Retroperitoneal hematoma; N39.0 Urinary tract infection, site not specified; J98.11 Atelectasis; A04.72 Enterocolitis due to Clostridium difficile, not specified as recurrent; R65.10 Systemic inflammatory response syndrome (SIRS) of non-infectious origin without acute organ dysfunction; R33.9 Retention of urine, unspecified; I95.9 Hypotension, unspecified; R58 Hemorrhage, not elsewhere classified; E03.9 Hypothyroidism, unspecified; E78.00 Pure hypercholesterolemia, unspecified; K66.0 Peritoneal adhesions (postprocedural) (postinfection); I10 Essential (primary) hypertension; D64.9 Anemia, unspecified; Z82.49 Family history of ischemic heart disease and other diseases of the circulatory system; Z99.81 Dependence on supplemental oxygen; Z86.19 Personal history of other infectious and parasitic diseases; Z79.899 Other long term (current) drug therapy
CPT/HCPCS: 36415; 71045; 74018; 76857; 80048; 80053; 81003; 82962; 83735; 85025; 85384; 85610; 85730; 86850; 86900; 86901; 86920; 87040; 87045; 87081; 87086; 87088; 87186; 87427; 87493; 94640; 97110; 97116; 97163; 97530; G0378; J0131; J0330; J0694; J1100; J1885; J2003; J2250; J2470; J2543; J2704; J3480; J3490; J7042; J7060

== ENCOUNTER 2024-06-05 11:24 | Inpatient (IN) | payer OTHER ==
[~2024-06-05] VITALS: Ht 152.4 cm; Wt 60.0 kg
[~2024-06-05 11:24] MED LIST changes: +CIPR500T4 PO; +VANC250C4 PO
--- NOTE | 2024-06-05 11:35 | ED.PDOC ---
HPI Comments 74-year-old female brought in by EMS presents with a chief complaint of SOB x 30 minutes prior to arrival. Patient states that SOB started suddenly, while she was walking around her house, and decided to call 911. Per EMS, patient was sating at 90% on room air and was placed on non-rebreather. Patient denies any active pain at this time. Patient was not given ASA or NTG per EMS due to patients blood pressure being in the 100s systolic in route. Patient recently in April had a hemicolectomy with postsurgical complication of intraperitoneal bleed. Patient has history of DVT but was not initiated on any anticoagulation given the presence of an abdominal bleed. . Per EMS, their 12-lead showed possible STEMI. Patients EKG was sent to on-call Legal Executive for evaluation. Our EKG here does not show STEMI but right bundle branch block. Patient denies any chest pain PMHx: Colon Cancer, DVT, HLD, Peritoneal bleed, Thyroid Disease PSHx: Abdominal Surgery SHx: Denies Medications: Levothyroxine, Atenolol, Atorvastatin, Potassium HPI: Poor Historian. REVIEW OF SYSTEMS: CONSTITUTIONAL: Denies acute: fever, diaphoresis, chills, HEAD: Denies acute: headache, photophobia Eyes: Denies acute: Double vision, vision loss, eye pain, eye discharge. EARS: Denies acute: tinnitus, hearing loss, ear discharge, ear pain, THROAT: Denies acute: sore throat, swelling, difficulty swallowing , pain with swallowing, change in voice. NECK: Denies acute: neck pain, neck swelling, stiff neck. HEART: Denies acute : chest pain, palpitations, LUNGS: Denies acute: wheezing, cough, hemoptysis ABDOMEN: Denies acute: abdominal pain, Nausea, Vomiting, diarrhea, melena , hematemesis, hematochezia SKIN: Denies acute: rash, redness, lesions, itchiness. EXTREMITIES: Denies acute: calf pain, numbness, tingling, weakness, denies pain in extremity. Denies acute: Low back pain. Neuro: Denies acute: focal neurological deficit, motor or sensory focal neurological deficit, tremors, seizure like activity, confusion, dizziness, change in mental status, loss of bowel or bladder function, cauda equina like symptoms. : Denies acute: dysuria, hematuria, flank pain, increase in urinary frequency. PSYCH: Denies acute: hallucination, suicidal ideation, homicidal ideation. FEMALE: Denies acute: abnormal vaginal bleeding, foul odor, unusual discharge. PHYSICAL EXAM: General: Iesh-qn-[id number] acute distress, awake and alert. Head: normocephalic, atraumatic. Neck: supple, trachea is midline, no swelling. Throat: Normal phonation. Eyes:, no erythema, no purulent discharge, no proptosis, no icterus. Heart: regular rate, regular rhythm, no significant murmur appreciated. Lungs: [id number]-[id number] respiratory distress, Able to speak in full sentences. No wheezing, no rhonchi, no crackles. No stridors Clear to auscultation bilaterally. Abdomen: non tender to palpation, non distended, soft, no guarding, no rebound, + bowel sounds. Neuro: Awake, Alert, oriented to name, self, situation, follows commands GCS=15. Speech is normal. Skin: no petechia, no purpura, no cyanosis, non-pale, not jaundice. Lower extremities: --trace - Pitting edema no deformity, no focal swelling, no calf TTP. Makes eye contact. moves all four extremities. Face: no apparent facial droop. ED COURSE: At this time 1354 hour, radiologist called me and informed me that the patient has bilateral PE with right RV strain and also a noted 7.6 cm x 6.5 cm right hemiabdomen abscess. Radiologist confirmed there is no bleeding in the abdomen. I spoke with the cleaning crew member on the phone right away and updated him of the findings of the patient's troponin rising and the presence of RV straightening. He recommends to start Lovenox and will follow in consult. At this time 1334 hour, I discussed the case with the on-call general surgeon Dr. Schwartz. He said that we have to contact the patient's surgeon Dr. Yoo. We are continuing to reach out to Dr. Yoo regarding the abdominal findings. As of this time 1635 our, we have not heard back from Dr. Yoo the general surgeon yet. We will continue to paged him and call him. At this time 4:50 p.m., The case was discussed with the general surgeon Dr. Yoo (HPI, physical exam, labs and diagnostic tests that were available at the time of disposition, ED course, treatment plan) on the phone. He said that this is not an abscess and he is very familiar with this. He is also very familiar with the patient. He says the patient does not need IV antibiotics for this purpose under there is other indications. He agrees to follow in consult. Time Seen by MD: 11:23 Reviewed Notes: Nurses Notes, Medications, Allergies Allergies: Coded Allergies: NO KNOWN ALLERGIES (Unverified , 10/23/09) Home Meds Active Scripts Vancomycin HCl (Vancomycin HCl) 250 Mg Cap, 250 MG PO QID, #40 CAP Prov:KEYA DUBOSE MD 04/28/24 Ciprofloxacin Hcl (Ciprofloxacin Hcl) 500 Mg Tab, 1 TAB PO BID, #10 TAB Prov:KEYA DUBOSE MD 04/28/24 Naloxone HCl (Narcan) 4 Mg/0.1 Ml Spr, 4 MG NA [employer]ORY WORKER, #2 SPRAY Prov:ASHANTI ISAAC MD 02/15/24 Reported Medications Levothyroxine Sodium (Levothyroxine Sodium) 50 Mcg Tab, 1 TAB PO DAILY 06/05/24 Mirtazapine (Mirtazapine Oral Disintegrating Tablet) 15 Mg Tab, 1 TAB PO 06/05/24 Iron W/ Vitamins (Geritol Complete) Complete Tab, 1 OR DAILY, TAB 04/16/24 Cholecalciferol (D3 2000) 2,000 Unit Cap, 2000 UNIT PO DAILY, CAP 04/16/24 Ascorbic Acid (VITAMIN C TABLET) 500 Mg Tb, 1000 MG PO DAILY, TAB 04/16/24 Atorvastatin Calcium (Lipitor) 20 Mg Tab, 20 MG PO DAILY, TAB 04/16/24 Levothyroxine Sodium (SYNTHROID TABLET) 50 Mcg Tb, 50 MCG PO DAILY, TAB 02/12/24 Atenolol (Atenolol) 25 Mg Tab, 1 TAB PO DAILY 02/03/20 Information Source: Patient, Emergency Med Personnel Mode of Arrival: EMS Past Medical History PAST MEDICAL HISTORY: Cancer, High Lipids Past Medical History (Other): PERITONEAL BLEED, DVT Surgical History (Other): ABDOMINAL SURGERY RADIO ELECTRICIAN History: Denies all RADIO ELECTRICIAN Hx Family History Family History: Reviewed,noncontributory to illness Social History Smoker: Non-Smoker Alcohol: Denies ETOH Use Drugs: Denies Drug Use Lives In: Home Was a procedure done? Was a procedure done?: No CP Differential Dx Differential Diagnosis: N/A Differential Diagnosis: Other (DDx include ACS, unstable angina, anxiety, PE, pneumothroax, neoplasm, cardiac ischemia, COPD, asthma, CHF, pleural effusion, tobacco abuse, pneumonia, hypoxia, hypercapnia, anemia., infection/sepsis., pulmonary edema. Asthma, Cardiac tamponade, infection.) X-Ray, Labs, Meds, VS Vital Signs Date Time Temp Pulse Resp B/P (MAP) Pulse Ox O2 Delivery O2 Flow Rate FiO2 06/05/24 14:28 98 06/05/24 14:00 95 18 115/75 (88) 100 06/05/24 13:00 95 20 112/75 (87) 100 06/05/24 13:00 93 16 99 Nasal Cannula* 2 28 06/05/24 12:38 99 06/05/24 12:00 96 18 112/75 (87) 100 06/05/24 12:00 99 06/05/24 11:49 98.0 106 25 115/69 (84) 100 98.0 06/05/24 11:39 98.0 110 30 114/76 (89) 97 98.0 06/05/24 11:24 111 Lab Test 06/05/24 15:26 06/05/24 13:07 06/05/24 11:30 Range/Units Troponin I High Sensitivity 684 *H 289 *H 64 *H </=34 ng/L Lactic Acid Level 1.7 3.3 *H 0.4-2.0 mmol/L White Blood Count 12.7 H 4.4-10.8 10^3/uL Red Blood Count 4.06 4.0-5.20 10^6/uL Hemoglobin 11.8 L 12.2-16.2 g/dL Hematocrit 37.6 36.0-46.0 % Mean Corpuscular Volume 92.6 80.0-100.0 fL Mean Corpuscular Hemoglobin 29.0 28.0-32.0 pg Mean Corpuscular Hemoglobin Concent 31.4 L 32.0-36.0 g/dL Red Cell Distribution Width 21.2 H 11.8-14.3 % Platelet Count 227 140-450 10^3/uL Mean Platelet Volume 7.8 6.9-10.8 fL Neutrophils (%) (Auto) 52.9 37.0-80.0 % Lymphocytes (%) (Auto) 37.6 10.0-50.0 % Monocytes (%) (Auto) 8.0 0.0-12.0 % Eosinophils (%) (Auto) 1.2 0.0-7.0 % Basophils (%) (Auto) 0.3 0.0-2.0 % Neutrophils # (Auto) 6.7 1.6-8.6 10 ^3/uL Lymphocytes # (Auto) 4.8 0.4-5.4 10 ^3/uL Monocytes # (Auto) 1.0 0-1.3 10 ^3/uL Eosinophils # (Auto) 0.1 0-0.8 10 ^3/uL Basophils # (Auto) 0 0-0.2 10 ^3/uL Nucleated Red Blood Cells 0.0 % Prothrombin Time 12.3 H 9.3-11.8 sec Prothrombin Time INR 1.18 H 0.9-1.15 Activated Partial Thromboplast Time 26.5 24.5-34.5 SEC D-Dimer, Quantitative 15.44 H 0.0-0.49 mg/L FEU Sodium Level 142 136-145 mmol/L Potassium Level 4.1 3.5-5.1 mmol/L Chloride Level 105 98-107 mmol/L Carbon Dioxide Level 23 20-31 mmol/L Anion Gap 14 5-15 Blood Urea Nitrogen 16 9-23 mg/dL Creatinine 1.15 H 0.550-1.02 mg/dL Glomerular Filtration Rate Calc 50 >90 mL/min BUN/Creatinine Ratio 13.9 10.0-20.0 Serum Glucose 204 H 74-106 mg/dL Hemoglobin A1c 5.1 <5.7 % A1C Calcium Level 9.9 8.7-10.4 mg/dL Magnesium Level 1.9 1.6-2.6 mg/dL Total Bilirubin 0.4 0.2-1.0 mg/dL Aspartate Amino Transferase (AST) 64 H 13-40 U/L Alanine Aminotransferase (ALT) 56 H 7-40 U/L Alkaline Phosphatase 133 H 46-116 U/L B-Type Natriuretic Peptide 70.46 0-100 pg/mL Total Protein 7.7 5.7-8.2 g/dL Albumin 4.0 3.2-4.8 g/dL Current Medications Medications (Trade) Dose Ordered Sig/Nneka Route Start Time Stop Time Status Last Admin Piperacillin Sod/ Tazobactam Sod 100 ml @ 100 mls/hr ONCE ONCE IV 06/05/24 12:15 06/05/24 13:14 DC 06/05/24 14:08 Enoxaparin Sodium (Lovenox) 60 mg STAT ONCE SC 06/05/24 14:15 06/05/24 14:16 DC 06/05/24 14:26 Sodium Chloride 1,000 ml @ 1.8 mls/hr Q24H ONCE IV 06/05/24 15:15 06/06/24 15:14 06/05/24 15:21 PATIENT: ROBERT BANDA CACCT: [id number]: [id number] : 1950 LOC: ER ROOM / BED: / AGE / SEX: 74 / F ADM STATUS: REG ER SERVICE 1140 ORDERING PHYSICIAN: ILA OLSON DO PROCEDURE(s): CXRP - CHEST PORTABLE REASON: SOB ORDER NUMBER(s): [id number], ACCESSION NUMBER(s): [id number] EXAM: XY CHEST PORTABLE HISTORY: SOB COMPARISON: None TECHNIQUE: Portable AP view of the chest was performed. FINDINGS: No pneumothorax or solid [place] infiltrates. There is central interstitial prominence. The heart is not enlarged. IMPRESSION: Central interstitial prominence may be due to reactive airways disease or mild CHF. The lungs are otherwise clear. ATED BY: LUCI ELIZABETH MD DICTATED DATE/TIME: 06/05/24 115 SIGNED BY: LUCI ELIZABETH MD SIGNED DATE/TIME: 06/05/24 115 Time of 1ST Reevaluation: 11:53 Reevaluation 1ST: Unchanged Time of 2ND Reevaluation: 13:18 (Card[address] Dr[address] Vega was paged at this time for possible thrombectomy.) Reevaluation 2ND: Improved Time of 3RD Reevaluation: 13:25 (The case was discussed with the cleaning crew member Dr. Vega team (HPI, physical exam, labs and diagnostic tests that were available at the time of disposition, ED course, treatment plan) on the phone. They agreed to follow in consult . They recommend Lovenox and stat echo. Still waiting to rule out any bleed in the abdomen given her recent history of postsurgical complication and intraperitoneal bleed according to the daughter.) Consultation: Cardiology Patient Education/Counseling: Diagnosis, Treatment Family Education/Counseling: No Family Present Comments Patient presented with the above HPI.---dyspnea---workup was initiated. patient was found with the above mentioned diagnosis. the following medications were ordered: please refer to order lists of meds and tests obtained by myself Dr. Olson. Patient ED course and VS have been stabilized. Patient has been reassessed in the ED and remained in a stable condition. Pertinent incidental findings were discussed with the patient and/or family. Patient/family voices understanding and is agreeable with plan. Patient has been observed in the ED adequate length of time to insure improvement/stability. Escalation of care considered: Consideration of escalation to observation or admission Patient was ADMITTED to the medicine team for further evaluation and treatment of their presentation. Given patient's initial chest x-ray finding, broad-spectrum antibiotics were initiated. Sepsis protocol was initiated. Cardiology was consulted for possible thrombectomy for bilateral pulmonary embolus with RV straining and elevated troponin. General surgery was consulted regarding CT scan findings of possible abscess. Anticoagulation was initiated Lovenox per cardiology recommendations. All the reports of any imaging studies that were ordered by myself were reviewed by myself. Departure 1 Departure Time of Disposition: 12:49 Impression: Primary Impression: Dyspnea Additional Impressions: Elevated troponin Pulmonary embolus Postoperative intra-abdominal abscess Disposition: ADMITTED INPATIENT Admit to: ICU Condition: Critical Discharged With: Self Critical Care Note Critical Care Time?: Yes (1 hr-critical care time only) Heart Score Heart Score: Heart Score Response (Comments) Value History Moderate Suspicious 1 EKG Normal 0 Age >65 2 Risk Factors 1 or 2 risk factors 1 Troponin 1-2 x's Normal limit 1 Total 5 I personally scribed for ILA OLSON DO ([email or web address]) on 06/05/24 at 11:35. Electronically submitted by Shakir Tran ([email or web address]). I personally scribed for ILA OLSON DO ([email or web address]) on 06/05/24 at 14:24. Electronically submitted by Shakir Tran ([email or web address]). ILA OLSON DO Jun 05, 2024 11:35
--- NOTE | 2024-06-05 11:53 | DVH ---
EXAM: XY CHEST PORTABLE HISTORY: SOB COMPARISON: None TECHNIQUE: Portable AP view of the chest was performed. FINDINGS: No pneumothorax or solid [place] infiltrates. There is central interstitial prominence. The heart is not enlarged. IMPRESSION: Central interstitial prominence may be due to reactive airways disease or mild CHF. The lungs are ot herwise clear.
[2024-06-05 11:58] LABS: Basophils # (auto) 0 10 ^3/uL (0-0.2); Basophils % (auto) 0.3 % (0.0-2.0); Eosinophils # (auto) 0.1 10 ^3/uL (0-0.8); Eosinophils % (auto) 1.2 % (0.0-7.0); Hematocrit 37.6 % (36.0-46.0); Hemoglobin 11.8 g/dL (12.2-16.2); Lymphocytes # (auto) 4.8 10 ^3/uL (0.4-5.4); Lymphocytes % (auto) 37.6 % (10.0-50.0); Mean Corpuscular Hgb Conc. 31.4 g/dL (32.0-36.0); Mean Corpuscular Volume 92.6 fL (80.0-100.0); Neutrophils # (auto) 6.7 10 ^3/uL (1.6-8.6); Neutrophils % (auto) 52.9 % (37.0-80.0); Platelet Count (auto) 227 10^3/uL (140-450); Red Blood Cells 4.06 10^6/uL (4.0-5.20); White Blood Cell 12.7 10^3/uL (4.4-10.8)
[2024-06-05 12:00] LABS: Red Cell Distribution Width 21.2 % (11.8-14.3)
[2024-06-05 12:15] LABS: Alanine Aminotransferase 56 U/L (7-40); Alkaline Phosphatase 133 U/L (46-116); Anion Gap 14 (5-15); Aspartate Aminotransferase 64 U/L (13-40); BUN/Creatinine Ratio 13.9 (10.0-20.0); Bilirubin, Total 0.4 mg/dL (0.2-1.0); Blood Urea Nitrogen 16 mg/dL (9-23); Calcium 9.9 mg/dL (8.7-10.4); Carbon Dioxide 23 mmol/L (20-31); Chloride 105 mmol/L (98-107); Glucose 204 mg/dL (74-106); Magnesium 1.9 mg/dL (1.6-2.6); Potassium 4.1 mmol/L (3.5-5.1); Sodium 142 mmol/L (136-145); Total Protein 7.7 g/dL (5.7-8.2)
[2024-06-05 12:16] LABS: Lactic Acid w/Reflex 3.3 mmol/L (0.4-2.0)
[2024-06-05 13:00] VITALS: PULSE 93; RESP 16; O2SAT 99
[2024-06-05 14:03] LABS: INR 1.18 (0.9-1.15); Partial Thromboplastin Time 26.5 SEC (24.5-34.5); Prothrombin Time 12.3 sec (9.3-11.8)
[2024-06-05] MEDS: IOHEXOL 350 MG/ML 100ML IJ ONE (14:07)
[2024-06-05] MEDS: PIPERACILLIN-TAZOB 3.375GM 100 ML IV ONE (14:08)
[2024-06-05] MEDS: ENOXAPARIN SOD 60 MG/0.6 ML SYRINGE SC ONE (14:26)
--- NOTE | 2024-06-05 15:14 | DVH ---
Procedure: CT CT CHEST/AB/PL W CON- IV ONLY 06/05/2024 12:41 PM Indication: SOB ? PE; POST SURGICAL COMPLICATIONS Comparison Study: None Technique: Axial images were obtained and reformatted in coronal and sagittal planes. All CT scans at this medical facility are performed using dose modulation techniques as appropriate to a performed exam including the following: Automated exposure control was utilized; adjustment of the MA and/or KV according to patient size; and use of iterative reconstruction technique. CT Dose: CTDI volume is none available mGy. Dose-length product is none available mGy*cm FINDINGS: Lower neck: Unremarkable. Cardiomediastinal: Bilateral pulmonary emboli extending from distal right and left pulmonary arteries to the upper and lower lobe lobar, segmental and subsegmental branches. There is evidence of right heart strain with leftward deviation of the interventricular septum. The heart is normal in size. Coronary artery calcification noted. Aorta is normal in caliber with scattered calcified plaques. Lungs: No focal pulmonary opacity. No pleural effusion. No pneumothorax. Hepatobiliary: A subcentimeter cyst is seen in the right hepatic lobe. No calcified gallstone. No intrahepatic or extrahepatic ductal dilatation. Spleen: Unremarkable. Pancreas: Unremarkable. Adrenal Glands: Unremarkable. tract: The kidneys are normal in size bilaterally without hydronephrosis or nephrolithiasis. The urinary bladder is unremarkable. GI tract: The patient is status post right hemicolectomy. A large 7.6 x 6.5 x 2.9 cm abscess is seen extending from the inferior surface of the liver extending obliquely to the right psoas muscle at L4 level Lymphatics: No mesenteric, retroperitoneal or periportal lymphadenopathy. Vasculature: Aorta is normal in caliber. Scattered calcified plaques are noted. Pelvic Organs: The uterus is surgically absent.. Bones/soft tissues: No acute abnormality. Multilevel degenerative changes of the lumbar spine noted. Other: None. IMPRESSION: 1. Extensive bilateral pulmonary emboli involving the right and left main pulmonary arteries, lobar, segmental and subsegmental branches of the upper and lower lobes pulmonary arteries. There is evidence of right heart strain. No pulmonary infarct is seen. 2. Status post right hemicolectomy with a large oblique abscess seen extending obliquely from the inferior surface of the liver to the right psoas muscle at L4 level measuring 7.6 x 6.5 x 2.9 cm. Recommend surgical or IR consultation for percutaneous drainage. There is no evidence of active contrast extravasation in the abdomen. No hematoma noted. Findings discussed with ILA OLSON at 06/05/2024 01:45 PM, and acknowledged receipt and understanding of the findings. .. 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
--- NOTE | 2024-06-05 15:19 | DVHINCON2 ---
Date Seen: Jun 05, 2024 Referring Physician MD Norm Reason for Consultation NSTEMI, bilateral PE History of Present Illness This is a 74-year-old female patient who comes to the emergency room with chief complaint of shortness of breath for one day. She was brought to the emergency room for further evaluation. The patient's daughter who is a nurse is at bedside at time of assessment. Initial twelve lead electrocardiogram reviewed by mosaic tiler reveals sinus tachycardia with right bundle branch block. Initial troponin level of 64ng/L with up trend and current peak level at 684ng/L. Patient denies any chest pain at time of assessment. Significant past medical history includes hypertension, dyslipidemia, thyroid disease, recent lower extremity DVT, appendiceal cancer status post right hemicolectomy, peritoneal bleed, and history of C diff. The patient was recently seen at [facility] where she was diagnosed with a lower extremity DVT. At that time, she was not given any anticoagulation due to a hematoma that she had, per daughter. Past Medical History Past medical history reviewed. No other significant than mentioned above. Past Surgical History Appendectomy Right hemicolectomy on 04/19/24 Family History: Patient reports no known family medical history. Family History Family history reviewed. Social History Denies the use of tobacco, alcohol or illicit drugs. Allergies: Coded Allergies: NO KNOWN ALLERGIES (Unverified , 10/23/09) Home Meds Active Scripts Vancomycin HCl (Vancomycin HCl) 250 Mg Cap, 250 MG PO QID, #40 CAP Prov:KEYA DUBOSE MD 04/28/24 Ciprofloxacin Hcl (Ciprofloxacin Hcl) 500 Mg Tab, 1 TAB PO BID, #10 TAB Prov:KEYA DUBOSE MD 04/28/24 Naloxone HCl (Narcan) 4 Mg/0.1 Ml Spr, 4 MG NA OUTPATIENT CLERK, #2 SPRAY Prov:ASHANTI ISAAC MD 02/15/24 Reported Medications Levothyroxine Sodium (Levothyroxine Sodium) 50 Mcg Tab, 1 TAB PO DAILY 06/05/24 Mirtazapine (Mirtazapine Oral Disintegrating Tablet) 15 Mg Tab, 1 TAB PO 06/05/24 Iron W/ Vitamins (Geritol Complete) Complete Tab, 1 OR DAILY, TAB 04/16/24 Cholecalciferol (D3 2000) 2,000 Unit Cap, 2000 UNIT PO DAILY, CAP 2/6/25 Ascorbic Acid (VITAMIN C TABLET) 500 Mg Tb, 1000 MG PO DAILY, TAB 04/16/24 Atorvastatin Calcium (Lipitor) 20 Mg Tab, 20 MG PO DAILY, TAB 04/16/24 Levothyroxine Sodium (SYNTHROID TABLET) 50 Mcg Tb, 50 MCG PO DAILY, TAB 02/12/24 Atenolol (Atenolol) 25 Mg Tab, 1 TAB PO DAILY 02/03/20 Home Meds Home medications reviewed. Review of Systems Constitutional: No symptom reported Ears, Nose, & Throat: No symptom reported Eyes: No symptom reported Neurological: No symptoms reported Pulmonary/Respiratory: Shortness of breath Cardiovascular: No symptom reported Gastrointestinal: No symptom reported Genitourinary: No symptom reported Musculoskeletal: No symptom reported Skin: No symptom reported Psychiatric: No symptom reported Endocrine: No symptom reported Hematologic/Lymphatic: No symptom reported Vital Signs Vital Signs Date Time Temp Pulse Resp B/P (MAP) Pulse Ox O2 Delivery O2 Flow Rate FiO2 06/05/24 14:28 98 06/05/24 13:00 20 112/75 (87) 100 06/05/24 11:49 98.0 98.0 Physical Exam General Appearance: Cooperative. Well-developed. Well-nourished. No acute distress. Pulmonary/Respiratory: Diminished bilateral lower lobes Cardiovascular/Chest: Regular rate and rhythm. Peripheral Pulses: 2+ Radial (R). 2+ Radial (L). 2+ Pedal (R). 2+ Pedal (L) Abdominal Exam: Normal bowel sounds. Ankle Exam: Negative ankle edema Lower extremities: Negative lower extremity edema Neuro/Mental Status: A/OX4, coherent. Thoughts/Psych: Normal thought pattern. Appropriate mood and affect. Good judgment and insight. Appearance: No acute distress. Skin Exam: Normal inspection. Normal color. Warm and dry. Labs/Diagnostic Data Labs Test 06/05/24 13:07 06/05/24 11:30 Range/Units Lactic Acid Level 1.7 0.4-2.0 mmol/L Troponin I High Sensitivity 289 *H </=34 ng/L White Blood Count 12.7 H 4.4-10.8 10^3/uL Red Blood Count 4.06 4.0-5.20 10^6/uL Hemoglobin 11.8 L 12.2-16.2 g/dL Hematocrit 37.6 36.0-46.0 % Mean Corpuscular Volume 92.6 80.0-100.0 fL Mean Corpuscular Hemoglobin 29.0 28.0-32.0 pg Mean Corpuscular Hemoglobin Concent 31.4 L 32.0-36.0 g/dL Red Cell Distribution Width 21.2 H 11.8-14.3 % Platelet Count 227 140-450 10^3/uL Mean Platelet Volume 7.8 6.9-10.8 fL Neutrophils (%) (Auto) 52.9 37.0-80.0 % Lymphocytes (%) (Auto) 37.6 10.0-50.0 % Monocytes (%) (Auto) 8.0 0.0-12.0 % Eosinophils (%) (Auto) 1.2 0.0-7.0 % Basophils (%) (Auto) 0.3 0.0-2.0 % Neutrophils # (Auto) 6.7 1.6-8.6 10 ^3/uL Lymphocytes # (Auto) 4.8 0.4-5.4 10 ^3/uL Monocytes # (Auto) 1.0 0-1.3 10 ^3/uL Eosinophils # (Auto) 0.1 0-0.8 10 ^3/uL Basophils # (Auto) 0 0-0.2 10 ^3/uL Nucleated Red Blood Cells 0.0 % Prothrombin Time 12.3 H 9.3-11.8 sec Prothrombin Time INR 1.18 H 0.9-1.15 Activated Partial Thromboplast Time 26.5 24.5-34.5 SEC D-Dimer, Quantitative 15.44 H 0.0-0.49 mg/L FEU Sodium Level 142 136-145 mmol/L Potassium Level 4.1 3.5-5.1 mmol/L Chloride Level 105 98-107 mmol/L Carbon Dioxide Level 23 20-31 mmol/L Anion Gap 14 5-15 Blood Urea Nitrogen 16 9-23 mg/dL Creatinine 1.15 H 0.550-1.02 mg/dL Glomerular Filtration Rate Calc 50 >90 mL/min BUN/Creatinine Ratio 13.9 10.0-20.0 Serum Glucose 204 H 74-106 mg/dL Calcium Level 9.9 8.7-10.4 mg/dL Magnesium Level 1.9 1.6-2.6 mg/dL Total Bilirubin 0.4 0.2-1.0 mg/dL Aspartate Amino Transferase (AST) 64 H 13-40 U/L Alanine Aminotransferase (ALT) 56 H 7-40 U/L Alkaline Phosphatase 133 H 46-116 U/L B-Type Natriuretic Peptide 70.46 0-100 pg/mL Total Protein 7.7 5.7-8.2 g/dL Albumin 4.0 3.2-4.8 g/dL Assessment NSTEMI Acute hypoxic respiratory failure secondary to extensive bilateral pulmonary em boli Rule out structural heart disease and RV strain Left lower extremity DVT Hypertension Dyslipidemia History of appendiceal cancer status post right hemicolectomy Thyroid disease Transaminitis Acute kidney injury Plan/Recommendation We will continue with the following plan/recommendations (Dr. Ellis): Patient seen and examined at bedside with . We will proceed with obtaining a transthoracic echocardiogram to evaluate cardiac function and assess for RV strain. Spoke with the patient's daughter who was at bedside regarding possible thrombectomy procedure. Patient and daughter refusing procedure and would like to be treated medically at this time. The patient's daughter states that they would only consider a thrombectomy if it becomes a matter of "life or ". PESI score: 103 points (Class III, Intermediate risk). At the time of assessment, the patient was on 4 L nasal cannula, no shortness of breath noted. She also remains hemodynamically stable with optimal blood pressures, without vasopressor support at this time. Continue with therapeutic Lovenox. Case discussed with both and . Continue with close cardiac surveillance. Thank you for allowing us to care for this patient. Please call with any questions or concerns. Critical care time spent: 44 minutes This medical document was created using an electronic medical record system with voice recognition software and computerized dictation system. Although this document has been carefully reviewed, there might still be some phonetic and typographical errors. Occasional wrong-word or ``sound-alike substitutions may have occurred due to the inherent limitations of voice recognition software. These areas are purely typographical due to imperfections of the software programs and do not reflect any compromise in the patient's medical care. Ple ase read the chart carefully and recognize, using context, where these substitutions have occurred. Plan discussed with: Patient, Daughter NYHA Physical activity limitations: NA Date of Service: Jun 05, 2024 Billing Provider: RHYS CHAPARRO Cardiology Common Codes: 94985-[id number] INP/OBS CARE (High) Cardiology Consultation Codes: 93075-[id number] CONSULT <45MIN RHYS CHAPARRO Jun 05, 2024 15:19
[2024-06-05] MEDS: SODIUM CHLORIDE 0.9% 1,000 ML IV ONE (15:21)
[2024-06-05] MEDS ORDERED: MIRT1TAB38 PO (15:44)
[2024-06-05] MEDS ORDERED: LEVO50TA7 PO (15:44)
[2024-06-05] MEDS ORDERED: MORPHINE SULFATE INJ 2 MG/ml SYRG IV PRN (15:45)
[2024-06-05] MEDS ORDERED: ONDANSETRON HCL 4 MG/2 ML VIAL IV PRN (15:45)
[2024-06-05] MEDS ORDERED: ACETAMINOPHEN 325 MG TAB PO PRN (15:45)
[2024-06-05] MEDS ORDERED: NITROGLYCERIN 0.4 MG SL TAB SL PRN (15:45)
[2024-06-05] MEDS ORDERED: DEXTROSE (50%) 50ML SYRG IV PRN (15:45)
[2024-06-05] MEDS ORDERED: HEPARIN SODIUM (PORCINE) 5000 UNITS/ML 1ML VIAL IV ONE (15:45)
--- NOTE | 2024-06-05 16:02 | DVHHP2 ---
History of Present Illness Reason for Visit: Shortness of breath History of Present Illness Renetta Hogue is a 74-year-old female with past medical history of hypertension, hyperlipidemia, hypothyroidism, C diff, colitis, appendiceal cancer, right hemicolectomy, appendectomy, perforated appendicitis, colon cancer, DVT, and peritoneal bleed who presents to the ED with shortness of breath. Per daughter Heidi at bedside she states that her mom was supposed to have a CT abdomen and pelvis done next week, also has an oncologist, has a inclusion teacher, and PCP that she regularly visits. Patient's daughter states that her mom had a right hematoma that was drained recently and was given antibiotics in which she finished the course. Her primary extended her dose of Flagyl for another 7 days from the initial 7 days total of 14 and so far she has finished 9 days of the 14. Patient's daughter also reports that she has oral thrush and was given nystatin for it. Patient reports that she does not use home oxygen. Patient's daughter stated that patient has been having positive C diff on and off recently. Cardiovascular: HTN, hyperipidemia Endocrine: Hypothyroidism Past Medical History C diff Colitis Appendiceal cancer Perforated appendicitis Colon cancer DVT Peritoneal bleed Past Surgical History: Appendectomy, Other (Right hemicolectomy) Family History: Other (Both ) Smoke: No ALCOHOL: none Drugs: None Lives: with Family Domestic Violence: Neg Review of Systems Respiratory: Shortness of breath Allergies: Coded Allergies: NO KNOWN ALLERGIES (Unverified , 10/23/09) Exam Vital Signs Vital Signs Date Time Temp Pulse Resp B/P (MAP) Pulse Ox O2 Delivery O2 Flow Rate FiO2 06/05/24 14:28 98 06/05/24 13:00 20 112/75 (87) 100 06/05/24 11:49 98.0 98.0 General Appearance: Alert, Oriented X3, Cooperative, No acute distress HEENT: Atraumatic, PERRLA, EOMI Respiratory: Normal air movement Cardiovascular: Normal S1, Normal S2, No murmurs Abdominal: Soft Extremities: No clubbing, No cyanosis, No edema Neuro: Normal speech, Normal tone, Sensation intact Psych/Mental Status: Mental status NL, Mood NL Labs/Xrays Labs Test 06/05/24 13:07 06/05/24 11:30 Range/Units Lactic Acid Level 1.7 0.4-2.0 mmol/L Troponin I High Sensitivity 289 *H </=34 ng/L White Blood Count 12.7 H 4.4-10.8 10^3/uL Red Blood Count 4.06 4.0-5.20 10^6/uL Hemoglobin 11.8 L 12.2-16.2 g/dL Hematocrit 37.6 36.0-46.0 % Mean Corpuscular Volume 92.6 80.0-100.0 fL Mean Corpuscular Hemoglobin 29.0 28.0-32.0 pg Mean Corpuscular Hemoglobin Concent 31.4 L 32.0-36.0 g/dL Red Cell Distribution Width 21.2 H 11.8-14.3 % Platelet Count 227 140-450 10^3/uL Mean Platelet Volume 7.8 6.9-10.8 fL Neutrophils (%) (Auto) 52.9 37.0-80.0 % Lymphocytes (%) (Auto) 37.6 10.0-50.0 % Monocytes (%) (Auto) 8.0 0.0-12.0 % Eosinophils (%) (Auto) 1.2 0.0-7.0 % Basophils (%) (Auto) 0.3 0.0-2.0 % Neutrophils # (Auto) 6.7 1.6-8.6 10 ^3/uL Lymphocytes # (Auto) 4.8 0.4-5.4 10 ^3/uL Monocytes # (Auto) 1.0 0-1.3 10 ^3/uL Eosinophils # (Auto) 0.1 0-0.8 10 ^3/uL Basophils # (Auto) 0 0-0.2 10 ^3/uL Nucleated Red Blood Cells 0.0 % Prothrombin Time 12.3 H 9.3-11.8 sec Prothrombin Time INR 1.18 H 0.9-1.15 Activated Partial Thromboplast Time 26.5 24.5-34.5 SEC D-Dimer, Quantitative 15.44 H 0.0-0.49 mg/L FEU Sodium Level 142 136-145 mmol/L Potassium Level 4.1 3.5-5.1 mmol/L Chloride Level 105 98-107 mmol/L Carbon Dioxide Level 23 20-31 mmol/L Anion Gap 14 5-15 Blood Urea Nitrogen 16 9-23 mg/dL Creatinine 1.15 H 0.550-1.02 mg/dL Glomerular Filtration Rate Calc 50 >90 mL/min BUN/Creatinine Ratio 13.9 10.0-20.0 Serum Glucose 204 H 74-106 mg/dL Calcium Level 9.9 8.7-10.4 mg/dL Magnesium Level 1.9 1.6-2.6 mg/dL Total Bilirubin 0.4 0.2-1.0 mg/dL Aspartate Amino Transferase (AST) 64 H 13-40 U/L Alanine Aminotransferase (ALT) 56 H 7-40 U/L Alkaline Phosphatase 133 H 46-116 U/L B-Type Natriuretic Peptide 70.46 0-100 pg/mL Total Protein 7.7 5.7-8.2 g/dL Albumin 4.0 3.2-4.8 g/dL Procedure: CT CT CHEST/AB/PL W CON- IV ONLY 06/05/2024 12:41 PM Indication: SOB ? PE; POST SURGICAL COMPLICATIONS Comparison Study: None Technique: Axial images were obtained and reformatted in coronal and sagittal planes. All CT scans at this medical facility are performed using dose modulation techniques as appropriate to a performed exam including the following: Automated exposure control was utilized; adjustment of the MA and/or KV according to patient size; and use of iterative reconstruction technique. CT Dose: CTDI volume is none available mGy. Dose-length product is none available mGy*cm FINDINGS: Lower neck: Unremarkable. Cardiomediastinal: Bilateral pulmonary emboli extending from distal right and left pulmonary arteries to the upper and lower lobe lobar, segmental and subsegmental branches. There is evidence of right heart strain with leftward deviation of the interventricular septum. The heart is normal in size. Coronary artery calcification noted. Aorta is normal in caliber with scattered calcified plaques. Lungs: No focal pulmonary opacity. No pleural effusion. No pneumothorax. Hepatobiliary: A subcentimeter cyst is seen in the right hepatic lobe. No calcified gallstone. No intrahepatic or extrahepatic ductal dilatation. Spleen: Unremarkable. Pancreas: Unremarkable. Adrenal Glands: Unremarkable. tract: The kidneys are normal in size bilaterally without hydronephrosis or nephrolithiasis. The urinary bladder is unremarkable. GI tract: The patient is status post right hemicolectomy. A large 7.6 x 6.5 x 2.9 cm abscess is seen extending from the inferior surface of the liver extending obliquely to the right psoas muscle at L4 level Lymphatics: No mesenteric, retroperitoneal or periportal lymphadenopathy. Vasculature: Aorta is normal in caliber. Scattered calcified plaques are noted. Pelvic Organs: The uterus is surgically absent.. Bones/soft tissues: No acute abnormality. Multilevel degenerative changes of the lumbar spine noted. Other: None. IMPRESSION: 1. Extensive bilateral pulmonary emboli involving the right and left main pulmonary arteries, lobar, segmental and subsegmental branches of the upper and lower lobes pulmonary arteries. There is evidence of right heart strain. No pulmonary infarct is seen. 2. Status post right hemicolectomy with a large oblique abscess seen extending obliquely from the inferior surface of the liver to the right psoas muscle at L4 level measuring 7.6 x 6.5 x 2.9 cm. Recommend surgical or IR consultation for percutaneous drainage. There is no evidence of active contrast extravasation in the abdomen. No hematoma noted. EXAM: XY CHEST PORTABLE HISTORY: SOB COMPARISON: None TECHNIQUE: Portable AP view of the chest was performed. FINDINGS: No pneumothorax or solid [place] infiltrates. There is central interstitial prominence. The heart is not enlarged. IMPRESSION: Central interstitial prominence may be due to reactive airways disease or mild CHF. The lungs are otherwise clear. Assessment/Plan Assessment/Plan Assessment Dyspnea secondary to pulmonary emboli Acute hypoxic respiratory failure NSTEMI Lactic acidosis rule out sepsis Oral thrush Transaminitis MANDI Hyperglycemia Status post right hemicolectomy with a large oblique abscess seen extending obliquely from the inferior surface of the liver to the right psoas muscle at L4 level measuring 7.6 x 6.5 x 2.9 cm History of C diff History of hypertension History of hyperlipidemia History of hypothyroidism History of colon cancer status post lakeisha colectomy on right History of appendectomy History of DVTs right History of peritoneal bleed History of C diff History of colitis History of perforated appendicitis History of appendiceal cancer Plan Admit to tele Supportive oxygen Continue nystatin home med Heparin drip Echo D-dimer IV antibiotics-Zosyn + vancomycin p.o. Diuretics CT abdomen and pelvis Chest x-ray EKG UA Mag level Lactic level Hemoglobin A1c ISS and Accu-Cheks Ultrasound bilateral lower extremities venous Cardiology consulted General surgery consult Home medications reconciled DVT prophylaxis-on heparin drip PUD prophylaxis-Protonix Discussed plan of care with patient, patient's daughter and nurse Plan discussed with: Patient, Daughter Date of Service: Jun 05, 2024 Billing Provider: YAMEL MORALES Common Visit Codes: [id number] INP/OBS CARE (HIGH) YAMEL MORALES Jun 05, 2024 16:02
--- NOTE | 2024-06-05 16:13 | DVH ---
Bilateral lower extremity venous duplex Clinical History: ro dvt Comparison: US BILAT LOWER DVT on DOS: 02/14/24 Technique: Duplex Doppler evaluation of the deep venous systems of both lower extremities from the common femora l veins to the popliteal veins including color Doppler and spectral/pulsed waveform analysis was perf ormed. Findings: RIGHT SIDE: The common femoral vein demonstrates appropriate compressibility and waveform variability. There is compressibility/patency of the great saphenous vein at the proximal thigh. The femoral vein demonstrates appropriate compressibility and waveform variability. The deep femoral vein demonstrates appropriate compressibility and waveform variability. The popliteal vein demonstrates appropriate compressibility and waveform variability. There is normal compressibility at the tibioperoneal trunk. LEFT SIDE: The common femoral vein demonstrates appropriate compressibility and waveform variability. There is compressibility/patency of the great saphenous vein at the proximal thigh. The femoral vein demonstrates appropriate compressibility and waveform variability. Thrombus in the left superficial femoral vein. The popliteal vein demonstrates appropriate compressibility and waveform variability. There is normal compressibility at the tibioperoneal trunk. Impression: No right lower extremity DVT. Left lower extremity DVT.
[2024-06-05] MEDS: FUROSEMIDE 40 MG/4 ML VIAL IV ONE (17:19)
[2024-06-05 17:34] LABS: Urine Bacteria FEW /hpf (None Seen); Urine Blood Negative /uL (Negative); Urine Clarity Clear (Clear); Urine Color Light-Yellow (Yellow); Urine Protein, UAD Negative (Negative); Urine Specific Gravity 1.032 (1.001-1.035); Urine Squamous Epithelial Cell FEW /hpf (<5); Urine Urobilinogen Normal (Negative); Urine WBC 8 /HPF (0-5); Urine pH 5.5 (5.0-9.0)
[2024-06-05] MEDS: ACCU-CHEK COMFORT CURVE STRIP VI SCH (18:51)
[2024-06-05] MEDS: InsuLIN REG 1unit/0.01ml Soln (100units/ml) SC SCH (18:51)
[2024-06-05] MEDS: NYSTATIN (MOUTH-THROAT) 500,000 UNITS/5 ML SUSP MT SCH (18:53)
[2024-06-05] MEDS: VANCOMYCIN HCL 125 MG CAP PO SCH (19:29)
[2024-06-05 19:30] VITALS: PULSE 99; RESP 16; O2SAT 99
--- NOTE | 2024-06-05 19:59 | DVHSR ---
APPROVED REPORT EXAM: Two-dimensional and M-mode echocardiogram with Doppler and color Doppler. Blood Pressure: 112/75 mmHg INDICATION Pulm Embolus RISK FACTORS Height: 60, Weight: 132 DIMENSIONS LVDd3.6 (3.8-5.7cm)LA (2D) (1.9-4.0cm)Aortic Root2.9 (2.0-3.7cm) LVDs2.6 (2.5-4.0cm)LA (MM) (1.9-4.0cm)Aortic Cusp Exc1.4 (1.5-2.0cm) EF (%) 57.0 (55-70%)Rt. Atrium (1.9-4.0cm)Asc. Aorta cm Mitral Valve MitralMitral Stenosis E/A ratio0.02D MVAcm2 Aortic Valve Aortic ValveAortic Stenosis V11.04m/Kimmy Mean GR.6mmHg V21.53m/Kimmy Peak GR.9mmHg LVOT Diameter1.9 (1.8-2.4cm)Doppler AVA1.93cm2 Tricuspid Valve TR Velocity2.62m/s [id number] Other Information Technically limited study due to body habitus, high heart rate and patient is sensitive to touch. Conclusion Technically good study. Sinus rhythm Concentric LVH. RV enlargement. Valves appear to be structurally normal. Left ventricular ejection fraction is 60%. There was diminished RV function. Lateral free wall is h ypokinetic Mild moderate TR. There appears to be [id number] pressure overload from the RV. TAPSE score w as not performed Effusion masses or vegetations
[2024-06-05 21:00] VITALS: PULSE 99; RESP 16; O2SAT 99
[2024-06-05] MEDS ORDERED: PIPERACILLIN-TAZOB 3.375GM 100 ML IV SCH (22:00)
[2024-06-05] MEDS: ATORVASTATIN 20 MG TAB PO SCH (22:00)
[2024-06-05] MEDS: ENOXAPARIN SOD 60 MG/0.6 ML SYRINGE SC SCH (22:28)
[2024-06-05 23:15] VITALS: BP 121/72; PULSE 82; PULSE 92; RESP 15; TEMP 98; O2SAT 93
--- NOTE | 2024-06-05 23:20 | DVHINCON2 ---
DATE OF CONSULTATION: 06/05/2024 REFERRING PHYSICIAN: Dr. Ryan Zheng. CONSULTING PHYSICIAN: Clive Yoo MD REASON FOR CONSULTATION: Abdominal fluid collection, rule out abscess. HISTORY OF PRESENT ILLNESS:. Ms. Hogue is a 74-year-old female very well known to my service, secondary to history of appendiceal cancer, status post right hemicolectomy. The patient came to the Emergency Department complaining of near syncopal events with associated weakness and dyspnea. Denied fevers, chills, hemoptysis, hematemesis, bilious emesis, chest pain, unintentional weight loss, night sweats, melena or hematochezia, leg pain or swelling. PAST MEDICAL HISTORY: Significant for hypertension, hyperlipidemia, hypothyroidism, perforated appendiceal cancer, pseudomembranous colitis. PAST SURGICAL HISTORY: Laparoscopic appendectomy, right hemicolectomy, ____ operation for removal of abdominal packing. MEDICATIONS: Reviewed per medication administration record. The patient is currently receiving Lovenox and was prescribed Zosyn. ALLERGIES: No known drug allergies. SOCIAL HISTORY: Denies smoking cigarettes, alcohol use, drug use, marijuana use or vaping. FAMILY HISTORY: Noncontributory. REVIEW OF SYSTEMS: NEURO: Negative. PSYCHIATRIC: Negative. ENDOCRINE: Negative. ENT: Negative. CARDIOVASCULAR: Negative. PULMONARY: As above. GASTROINTESTINAL: Negative. HEMATOLOGIC/INFECTIOUS DISEASE: Negative. LYMPHATICS: Negative. MUSCULOSKELETAL: Negative. SKIN: Negative. PHYSICAL EXAMINATION: GENERAL: She is lying comfortably on a stretcher in ED12. She is calm, pleasant and in no distress. She is afebrile with stable vital signs. NEUROLOGIC: Grossly intact, alert, awake, oriented x3. HEAD, EARS, EYES, NOSE AND THROAT: Normocephalic. Pupils equally round. Extraocular muscles intact. Trachea is midline. HEART: Mildly tachycardic and normotensive. LUNGS: Effortless breathing. Normal oxygen saturation and respiratory rate. Receiving supplemental oxygen via nasal cannula. ABDOMEN: Soft, nondistended, nontender. Two well-healed midline and laparoscopic scars. EXTREMITIES: No edema or tenderness. LABORATORY DATA: Demonstrated white blood cell count 12, hemoglobin 11, hematocrit 37, platelets 227, creatinine 1.15, glucose 204, alkaline phosphatase 133, ALT 66, AST 64. Lactic acid 1.7. Troponin 684. INR 1.18. PT 12, PTT 26. CT scan images of the chest, abdomen and pelvis with corresponding report. There is evidence of bilateral pulmonary emboli. Postoperative changes involving the right hemicolectomy. A fluid collection in the right side of the abdomen, which was interpreted as an abscess. No other significant findings. ASSESSMENT: * A 74-year-old female with bilateral pulmonary emboli. Possible right heart strain. * Right side intraabdominal fluid collection. This corresponds to usage of Surgicel, SNoW, and FloSeal, not an abscess. This has been previously sampled in another institution. * Left lower extremity deep vein thrombosis. PLANS AND RECOMMENDATIONS: The patient may resume the diet. No need for antibiotic therapy. Therapeutic anticoagulation. Cardiology follow up No need for sampling or drainage of the fluid collection. Transfer the patient's service to Dr. Valentino's patient as the patient belongs to the [facility]. Thank you for allowing me to participate in the care of your patient. I will follow her with you. MD BRET Roa/DELBERT/NEELIMA/JEAN TID: [id number] RECEIPT: [id number] [email or web address]
--- NOTE | 2024-06-05 23:55 | DVHINCON2 ---
Date Seen: Jun 05, 2024 Referring Physician MD Norm Reason for Consultation NSTEMI, bilateral PE History of Present Illness This is a 74-year-old female with past medical history of hypertension, dyslipidemia, thyroid disease, recent lower extremity DVT, appendiceal cancer status post right hemicolectomy, peritoneal bleed, and history of C diff who comes to the ED with complaints of shortness of breath x 1 day. Patient's daughter is also at bedside and states that she is a nurse. The patient was recently seen at [facility] where she was diagnosed with a lower extremity DVT. At that time, she was not given any anticoagulation due to a hematoma that she had, per daughter. I reviewed the patient's Initial twelve lead electrocardiogram reveals sinus tachycardia with right bundle branch block. Initial troponin level of 64ng/L with up trend and current peak level at 684ng/L. Chest x-ray shows central interstitial prominence may be due to reactive airways disease or mild CHF. The lungs are otherwise clear. CT Chest ABD PEL revealed extensive bilateral pulmonary emboli involving the right and left main pulmonary arteries, lobar, segmental and subsegmental branches of the upper and lower lobes pulmonary arteries. There is evidence of right heart strain. No pulmonary infarct is seen. Status post right hemicolectomy with a large oblique abscess seen extending obliquely from the inferior surface of the liver to the right psoas muscle at L4 level measuring 7.6 x 6.5 x 2.9 cm. Patient was admitted to the hospital. I am asked to consult on this patient. Past Medical History Past medical history reviewed. No other significant than mentioned above. Past Surgical History Appendectomy Right hemicolectomy on 04/19/24 Family History: Patient reports no known family medical history. Allergies: Coded Allergies: NO KNOWN ALLERGIES (Unverified , 10/23/09) Home Meds Active Scripts Vancomycin HCl (Vancomycin HCl) 250 Mg Cap, 250 MG PO QID, #40 CAP Prov:KEYA DUBOSE MD 04/28/24 Ciprofloxacin Hcl (Ciprofloxacin Hcl) 500 Mg Tab, 1 TAB PO BID, #10 TAB Prov:KEYA DUBOSE MD 04/28/24 Naloxone HCl (Narcan) 4 Mg/0.1 Ml Spr, 4 MG NA LOCKSTITCH CUP SETTER, #2 SPRAY Prov:ASHANTI ISAAC MD 02/15/24 Reported Medications Levothyroxine Sodium (Levothyroxine Sodium) 50 Mcg Tab, 1 TAB PO DAILY 06/05/24 Mirtazapine (Mirtazapine Oral Disintegrating Tablet) 15 Mg Tab, 1 TAB PO 06/05/24 Iron W/ Vitamins (Geritol Complete) Complete Tab, 1 OR DAILY, TAB 04/16/24 Cholecalciferol (D3 2000) 2,000 Unit Cap, 2000 UNIT PO DAILY, CAP 04/16/24 Ascorbic Acid (VITAMIN C TABLET) 500 Mg Tb, 1000 MG PO DAILY, TAB 04/16/24 Atorvastatin Calcium (Lipitor) 20 Mg Tab, 20 MG PO DAILY, TAB 04/16/24 Levothyroxine Sodium (SYNTHROID TABLET) 50 Mcg Tb, 50 MCG PO DAILY, TAB 02/12/24 Atenolol (Atenolol) 25 Mg Tab, 1 TAB PO DAILY 02/03/20 Current Medications Current Medications Medications (Trade) Dose Ordered Sig/Nneka Route PRN Reason Start Time Stop Time Status Last Admin Heparin Sodium/ Dextrose 250 ml @ 10 mls/hr Q24H IV 06/06/24 00:30 06/05/24 17:33 DC Diagnostic Test (Pha) (Accu-Chek Comfort Curve T) 1 strip ACHS 06/05/24 17:00 06/05/24 18:51 Insulin Human Regular (InsuLIN R) ACHS SC 06/05/24 17:00 Dextrose 50 ml UD PRN IV Blood Sugar LESS THAN 60 06/05/24 15:45 Ondansetron HCl (Zofran) 4 mg Q4HP PRN IV NAUSEA / VOMITING 06/05/24 15:45 Acetaminophen (Tylenol Tablet) 650 mg Q6HP PRN PO PAIN SCALE 1-3 OR TEMP>100.4 06/05/24 15:45 Nitroglycerin (Ntrostat Sublingual) 0.4 mg Q5MINP PRN SL FOR CHEST PAIN 06/05/24 15:45 Morphine Sulfate 2 mg Q30M PRN IV FOR CHEST PAIN 06/05/24 15:45 Piperacillin Sod/ Tazobactam Sod 100 ml @ 25 mls/hr Q8HR IV 06/05/24 22:00 06/05/24 21:00 DC Nystatin (Mycostatin (Mouth-Throat)) 5 ml QID MT 06/05/24 18:00 06/05/24 18:53 Ascorbic Acid (Vitamin C Tablet) 1,000 mg DAILY PO 06/06/24 10:00 Atenolol (Tenormin Tablet) 25 mg DAILY PO 06/06/24 10:00 Atorvastatin Calcium (Lipitor) 20 mg HS PO 06/05/24 22:00 Levothyroxine Sodium (Synthroid Tablet) 50 mcg QAM PO 06/06/24 07:00 Cholecalciferol (Vitamin D3 Tablet) 2,000 unit DAILY PO 06/06/24 10:00 Pantoprazole Sodium (Protonix) 40 mg DAILY IV 06/06/24 10:00 Vancomycin HCl 125 mg QID PO 06/05/24 18:00 06/05/24 19:29 Enoxaparin Sodium (Lovenox) 60 mg Q12HR SC 06/05/24 22:00 Review of Systems Constitutional: No symptom reported Ears, Nose, & Throat: No symptom reported Eyes: No symptom reported Neurological: No symptoms reported Pulmonary/Respiratory: Shortness of breath Cardiovascular: No symptom reported Gastrointestinal: No symptom reported Genitourinary: No symptom reported Musculoskeletal: No symptom reported Skin: No symptom reported Psychiatric: No symptom reported Endocrine: No symptom reported Hematologic/Lymphatic: No symptom reported Vital Signs Vital Signs Date Time Temp Pulse Resp B/P (MAP) Pulse Ox O2 Delivery O2 Flow Rate FiO2 06/05/24 18:00 98 18 109/70 (83) 100 06/05/24 16:00 98.7 98.7 06/05/24 13:00 Nasal Cannula* 2 28 Physical Exam GENERAL: Awake, alert, oriented. LUNGS: Diminished breath sounds. CARDIOVASCULAR: Heart sounds are good. ABDOMEN: Soft. Labs/Diagnostic Data Labs Test 06/05/24 18:50 06/05/24 16:30 06/05/24 15:26 06/05/24 13:07 Range/Units POC Glucose 109 H 70-106 mg/dl Urine Color Light-yellow Yellow Urine Clarity Clear Clear Urine pH 5.5 5.0-9.0 Urine Specific [place] 1.032 1.001-1.035 Urine Protein Negative Negative Urine Ketones Negative Negative Urine Blood Negative Negative /uL Urine Nitrite Negative Negative Urine Bilirubin Negative Negative Urine Urobilinogen Normal Negative mg/dL Urine Leukocyte Esterase Negative Negative /uL Urine RBC 4 0 - 4 /hpf Urine Microscopic WBC 8 H 0-5 /HPF Urine Squamous Epithelial Cells Few <5 /hpf Urine Bacteria Few H None Seen /hpf Urine Glucose Normal Normal mg/dL Troponin I High Sensitivity 684 *H </=34 ng/L Lactic Acid Level 1.7 0.4-2.0 mmol/L Test 06/05/24 11:30 Range/Units White Blood Count 12.7 H 4.4-10.8 10^3/uL Red Blood Count 4.06 4.0-5.20 10^6/uL Hemoglobin 11.8 L 12.2-16.2 g/dL Hematocrit 37.6 36.0-46.0 % Mean Corpuscular Volume 92.6 80.0-100.0 fL Mean Corpuscular Hemoglobin 29.0 28.0-32.0 pg Mean Corpuscular Hemoglobin Concent 31.4 L 32.0-36.0 g/dL Red Cell Distribution Width 21.2 H 11.8-14.3 % Platelet Count 227 140-450 10^3/uL Mean Platelet Volume 7.8 6.9-10.8 fL Neutrophils (%) (Auto) 52.9 37.0-80.0 % Lymphocytes (%) (Auto) 37.6 10.0-50.0 % Monocytes (%) (Auto) 8.0 0.0-12.0 % Eosinophils (%) (Auto) 1.2 0.0-7.0 % Basophils (%) (Auto) 0.3 0.0-2.0 % Neutrophils # (Auto) 6.7 1.6-8.6 10 ^3/uL Lymphocytes # (Auto) 4.8 0.4-5.4 10 ^3/uL Monocytes # (Auto) 1.0 0-1.3 10 ^3/uL Eosinophils # (Auto) 0.1 0-0.8 10 ^3/uL Basophils # (Auto) 0 0-0.2 10 ^3/uL Nucleated Red Blood Cells 0.0 % Prothrombin Time 12.3 H 9.3-11.8 sec Prothrombin Time INR 1.18 H 0.9-1.15 Activated Partial Thromboplast Time 26.5 24.5-34.5 SEC D-Dimer, Quantitative 15.44 H 0.0-0.49 mg/L FEU Sodium Level 142 136-145 mmol/L Potassium Level 4.1 3.5-5.1 mmol/L Chloride Level 105 98-107 mmol/L Carbon Dioxide Level 23 20-31 mmol/L Anion Gap 14 5-15 Blood Urea Nitrogen 16 9-23 mg/dL Creatinine 1.15 H 0.550-1.02 mg/dL Glomerular Filtration Rate Calc 50 >90 mL/min BUN/Creatinine Ratio 13.9 10.0-20.0 Serum Glucose 204 H 74-106 mg/dL Hemoglobin A1c 5.1 <5.7 % A1C Calcium Level 9.9 8.7-10.4 mg/dL Magnesium Level 1.9 1.6-2.6 mg/dL Total Bilirubin 0.4 0.2-1.0 mg/dL Aspartate Amino Transferase (AST) 64 H 13-40 U/L Alanine Aminotransferase (ALT) 56 H 7-40 U/L Alkaline Phosphatase 133 H 46-116 U/L B-Type Natriuretic Peptide 70.46 0-100 pg/mL Total Protein 7.7 5.7-8.2 g/dL Albumin 4.0 3.2-4.8 g/dL Assessment NSTEMI. Acute hypoxic respiratory failure secondary to extensive bilateral pulmonary emboli. Rule out structural heart disease and RV strain. Left lower extremity DVT. Hypertension. Dyslipidemia. History of appendiceal cancer status post right hemicolectomy. Thyroid disease. Transaminitis. Acute kidney injury. Plan/Recommendation I agree with your ongoing assessment and care of plan. Patient has been seen by Joyce Travis NP on my behalf, her and I discussed the plan with the patient. We will proceed with obtaining a transthoracic echocardiogram to evaluate cardiac function and assess for RV strain. Spoke with the patient's daughter who was at bedside regarding possible thrombectomy procedure. Patient and daughter refusing procedure and would like to be treated medically at this time. The patient's daughter states that they would only consider a thrombectomy if it becomes a matter of "life or ". PESI score: 103 points (Class III, Intermediate risk). At the time of assessment, the patient was on 4 L nasal cannula, no shortness of breath noted. She also remains hemodynamically stable with optimal blood pressures, without vasopressor support at this time. Continue with therapeutic Lovenox. Continue with close cardiac surveillance. Case discussed with . Additional plan as per the hospital course. Plan discussed with: Patient NYHA Physical activity limitations: NA Date of Service: Jun 05, 2024 Billing Provider: SILVA QUINTANILLA MD Cardiology Common Codes: 56867-FHIWIIL INP/OBS CARE (High) Cardiology Consultation Codes: [id number] CONSULT <45MIN SILVA QUINTANILLA MD Jun 05, 2024 22:14
[2024-06-06] VITALS (9 sets, daily range): BP systolic 110–130; BP diastolic 65–88; PULSE 79–99; RESP 14–24; TEMP 97.6–98; O2SAT 94–99
[2024-06-06] MEDS ORDERED: HEPARIN DRIP/D5W 100UNITS/ML 250 ML IV SCH (00:30)
[2024-06-06 05:25] LABS: Basophils # (auto) 0 10 ^3/uL (0-0.2); Basophils % (auto) 0.5 % (0.0-2.0); Eosinophils # (auto) 0 10 ^3/uL (0-0.8); Eosinophils % (auto) 0.4 % (0.0-7.0); Hematocrit 33.9 % (36.0-46.0); Hemoglobin 10.8 g/dL (12.2-16.2); Lymphocytes # (auto) 2.4 10 ^3/uL (0.4-5.4); Lymphocytes % (auto) 26.4 % (10.0-50.0); Mean Corpuscular Volume 90.7 fL (80.0-100.0); Monocytes % (auto) 11.3 % (0.0-12.0); Neutrophils # (auto) 5.5 10 ^3/uL (1.6-8.6); Neutrophils % (auto) 61.4 % (37.0-80.0); Platelet Count (auto) 196 10^3/uL (140-450); Red Blood Cells 3.74 10^6/uL (4.0-5.20); Red Cell Distribution Width 21.1 % (11.8-14.3)
[2024-06-06 05:41] LABS: Albumin 3.5 g/dL (3.2-4.8); Alkaline Phosphatase 107 U/L (46-116); Anion Gap 7 (5-15); BUN/Creatinine Ratio 16.7 (10.0-20.0); Bilirubin, Total 0.4 mg/dL (0.2-1.0); Blood Urea Nitrogen 14 mg/dL (9-23); Calcium 9.4 mg/dL (8.7-10.4); Carbon Dioxide 26 mmol/L (20-31); Glucose 100 mg/dL (74-106); INR 1.24 (0.9-1.15); Potassium 3.8 mmol/L (3.5-5.1); Prothrombin Time 12.9 sec (9.3-11.8); Sodium 143 mmol/L (136-145); Total Protein 6.6 g/dL (5.7-8.2)
[2024-06-06 05:53] LABS: Alanine Aminotransferase 44 U/L (7-40); Aspartate Aminotransferase 51 U/L (13-40); Chloride 110 mmol/L (98-107)
[2024-06-06] MEDS: LEVOTHYROXINE SODIUM 50 MCG TAB PO SCH (06:01)
--- NOTE | 2024-06-06 08:19 | DVHPN2 ---
Progress Note Date Seen: Jun 06, 2024 Has the PT tested + for MRSA If YES, has PT been informed?: Yes Medical Necessity Reason Pt with a Central, PICC or Fol: No Subjective Review of Systems Pt feels much better. Wants to go home. Denies CP, SOB, abdominal pain, N/V. Continues tolerating diet, passing flatus and having BM Objective vital signs Vital Sign Date Time Temp Pulse Resp B/P (MAP) Pulse Ox O2 Delivery O2 Flow Rate FiO2 06/06/24 06:00 79 18 110/71 (84) 99 06/06/24 00:00 Nasal Cannula* 3 32 06/06/24 00:00 98.0 98.0 Total Intake and Output 06/05/24 06/05/24 06/06/24 15:00 23:00 07:00 Intake Total 1100 ml 0 ml Balance 1100 ml 0 ml medications Current Medications Medications Dose Ordered Sig/Nneka Route Start Time Stop Time Status Last Admin Dose Admin Diagnostic Test (Pha) 1 strip ACHS 06/05/24 17:00 06/05/24 18:51 1 STRIP Insulin Human Regular ACHS SC 06/05/24 17:00 Dextrose 50 ml UD PRN IV 06/05/24 15:45 Ondansetron HCl 4 mg Q4HP PRN IV 06/05/24 15:45 Acetaminophen 650 mg Q6HP PRN PO 06/05/24 15:45 Nitroglycerin 0.4 mg Q5MINP PRN SL 06/05/24 15:45 Morphine Sulfate 2 mg Q30M PRN IV 06/05/24 15:45 Nystatin 5 ml QID MT 06/05/24 18:00 06/05/24 18:53 5 ML Ascorbic Acid 1,000 mg DAILY PO 06/06/24 10:00 Atenolol 25 mg DAILY PO 06/06/24 10:00 Atorvastatin Calcium 20 mg HS PO 06/05/24 22:00 Levothyroxine Sodium 50 mcg QAM PO 06/06/24 07:00 06/06/24 06:01 50 MCG Cholecalciferol 2,000 unit DAILY PO 06/06/24 10:00 Pantoprazole Sodium 40 mg DAILY IV 06/06/24 10:00 Enoxaparin Sodium 60 mg Q12HR SC 06/05/24 22:00 06/05/24 22:28 60 MG Examination AFVSS. Abdomen soft, ND and NT. laboratory and microbiology Laboratory Tests 06/06/24 04:56 Test 06/06/24 04:56 Range/Units Serum Glucose 100 74-106 mg/dL Labs and/or images reviewed: Labs reviewed by me Problem List/Assessment/Plan Problems(with codes): (1) Pulmonary embolus Problem List/Assessment/Plan B/L PE. Therapeutic anticoagulation.May transition to oral anticoagulation. No need to check serial coagulation tests. Intraabdominal hematoma with hemostatic agents, involuting. Previously sampled. No abscess. No further intervention. No need for Abx Tx. Hx of Pseudomembranous colitis, treated. Pt is not symptomatic. Soft stools from [facility]. Cx C diff test. Check troponin. If no heart strain, may D/C home from surgical standpoint on therapeutic anticoagulation therapy and F/U with PCP as outpt. D/C pt, spouse, daughter, RN and Dr. Valentino. Txfr pt to Dr. Valentino, pt belongs to [facility] Plan discussed with: Patient, Spouse, Daughter, Other (Dr. Valentino) My Orders My Orders Orders - GREGOR MARTIN MD Procedure Category Date Status Time Transfer Service ORDERS 06/05/24 Transmitted 20:58 * Surgical Consult CONS 06/05/24 Transmitted 20:59 Troponin-I Hs LAB 06/06/24 Transmitted 08:10 Troponin-I Hs LAB 06/06/24 Logged 08:10 GREGOR MARTIN MD Jun 06, 2024 08:19
[2024-06-06] MEDS ORDERED: PANTOPRAZOLE 40 MG/10 ML VIAL INJ IV SCH (10:00)
[2024-06-06] MEDS: ASCORBIC ACID 500 MG TAB PO SCH (10:29)
[2024-06-06] MEDS: CHOLECALCIFEROL (VITD3) 1,000UNIT=25mCg TAB PO SCH (10:29)
[2024-06-06] MEDS: ATENOLOL 25 MG TAB PO SCH (10:30)
--- NOTE | 2024-06-06 12:44 | DVHPN2 ---
Subjective SOB and dizziness after using the restroom Review of systems Reported shortness of breath and dizziness while using the restroom Denies chest pain or syncope Changes from previous H/P or p: Changes Respiratory: Shortness of breath Objective Vitals Vital Signs Date Time Temp Pulse Resp B/P (MAP) Pulse Ox O2 Delivery O2 Flow Rate FiO2 06/06/24 11:00 82 21 137/79 (98) 97 06/06/24 07:45 98.7 98.7 06/06/24 07:45 Nasal Cannula* 3 32 Intake/Output Intake and Output 06/06/24 07:00 Intake Total 1100 ml Balance 1100 ml Intake Oral 0 ml IV Total 1100 ml # Voids 2 Exam Sinus rhythm Hemodynamically stable O2 supplement General Appearance: Alert, Oriented X3 Medications Current Medications Medications Dose Ordered Sig/Nneka Route Start Time Stop Time Status Last Admin Dose Admin Diagnostic Test (Pha) 1 strip ACHS 06/05/24 17:00 06/06/24 11:48 1 STRIP Insulin Human Regular ACHS SC 06/05/24 17:00 Dextrose 50 ml UD PRN IV 06/05/24 15:45 Ondansetron HCl 4 mg Q4HP PRN IV 06/05/24 15:45 Acetaminophen 650 mg Q6HP PRN PO 06/05/24 15:45 Nitroglycerin 0.4 mg Q5MINP PRN SL 06/05/24 15:45 Morphine Sulfate 2 mg Q30M PRN IV 06/05/24 15:45 Nystatin 5 ml QID MT 06/05/24 18:00 06/05/24 18:53 5 ML Ascorbic Acid 1,000 mg DAILY PO 06/06/24 10:00 06/06/24 10:29 1,000 MG Atenolol 25 mg DAILY PO 06/06/24 10:00 06/06/24 10:30 25 MG Atorvastatin Calcium 20 mg HS PO 06/05/24 22:00 Levothyroxine Sodium 50 mcg QAM PO 06/06/24 07:00 06/06/24 06:01 50 MCG Cholecalciferol 2,000 unit DAILY PO 06/06/24 10:00 06/06/24 10:29 2,000 UNIT Enoxaparin Sodium 60 mg Q12HR SC 06/05/24 22:00 06/06/24 10:28 60 MG Pantoprazole Sodium 40 mg DAILY@0600 PO 06/07/24 06:00 Laboratory Results Laboratory Tests 06/06/24 04:56 Chemistry Test 06/06/24 04:56 Albumin 3.5 g/dL (3.2-4.8) Calcium Level 9.4 mg/dL (8.7-10.4) Total Protein 6.6 g/dL (5.7-8.2) Coagulation Test 06/06/24 04:56 Prothrombin Time 12.9 sec (9.3-11.8) H Prothrombin Time INR 1.24 (0.9-1.15) H Activated Partial Thromboplast Time 36.0 SEC (24.5-34.5) H LFT Test 06/06/24 04:56 Alanine Aminotransferase (ALT) 44 U/L (7-40) H Alkaline Phosphatase 107 U/L (46-116) Aspartate Amino Transferase (AST) 51 U/L (13-40) H Total Bilirubin 0.4 mg/dL (0.2-1.0) Urinalysis Test 06/05/24 16:30 Urine Color Light-yellow (Yellow) Urine Clarity Clear (Clear) Urine pH 5.5 (5.0-9.0) Urine Specific [place] 1.032 (1.001-1.035) Urine Protein Negative (Negative) Urine Ketones Negative (Negative) Urine Blood Negative /uL (Negative) Urine Nitrite Negative (Negative) Urine Bilirubin Negative (Negative) Urine Urobilinogen Normal mg/dL (Negative) Urine Leukocyte Esterase Negative /uL (Negative) Urine RBC 4 /hpf (0 - 4) Urine Microscopic WBC 8 /HPF (0-5) H Urine Squamous Epithelial Cells Few /hpf (<5) Urine Bacteria Few /hpf (None Seen) H Urine Glucose Normal mg/dL (Normal) Assessment/Plan Assessment/Plan NSTEMI Acute hypoxic respiratory failure secondary to extensive bilateral pulmonary emboli Rule out structural heart disease and RV strain Left lower extremity DVT Hypertension Dyslipidemia History of appendiceal cancer status post right hemicolectomy Thyroid disease Transaminitis Acute kidney injury Plan/Recommendation We will continue with the following plan/recommendations (Dr. Vega): Transthoracic echocardiogram reveals EF 60%. Continue with therapeutic Lovenox. Current hemodynamically stable. Planned for thrombectomy procedure with Dr. Vega on saturday06/08/24. Informed consent discussed with patient and daughter at the bedside, in agreement with planned procedure. Continue with close cardiac surveillance. Thank you for allowing us to care for this patient. Please call with any questions or concerns This medical document was created using an electronic medical record system with voice recognition software and computerized dictation system. Although this document has been carefully reviewed, there might still be some phonetic and typographical errors. Occasional wrong-word or ``sound-alike substitutions may have occurred due to the inherent limitations of voice recognition software. These areas are purely typographical due to imperfections of the software programs and do not reflect any compromise in the patient's medical care. Please read the chart carefully and recognize, using context, where these substitutions have occurred. Plan discussed with: Patient, Daughter Plan discussed with: Patient, Daughter Date of Service: Jun 06, 2024 Billing Provider: BRYAN VEGA Sr., MD Common Visit Codes: CONSULT ONLY Consultation Codes: [id number] CONSULT <45MIN ACACIA CORTEZ ANIMATION DIRECTOR Jun 06, 2024 12:44
--- NOTE | 2024-06-06 13:49 | DVHPN2 ---
Subjective Overnight events noted. This patient was hospitalized by the hospitalist team I am assuming the care of the patient from today onwards. Changes from previous H/P or p: Changes Respiratory: Shortness of breath Objective Vitals Vital Signs Date Time Temp Pulse Resp B/P (MAP) Pulse Ox O2 Delivery O2 Flow Rate FiO2 06/06/24 12:00 76 19 121/77 (92) 97 06/06/24 07:45 98.7 98.7 06/06/24 07:45 Nasal Cannula* 3 32 Intake/Output Intake and Output 06/06/24 07:00 Intake Total 1100 ml Balance 1100 ml Intake Oral 0 ml IV Total 1100 ml # Voids 2 Exam HEENT pupils are reactive Neck is supple CV is S1-S2 regular rate and rhythm Diminished breath sounds bases GI positive bowel sound Extremity no edema CLASS C DRIVER no motor deficit General Appearance: Alert, Oriented X3 Medications Current Medications Medications Dose Ordered Sig/Nneka Route Start Time Stop Time Status Last Admin Dose Admin Diagnostic Test (Pha) 1 strip ACHS 06/05/24 17:00 06/06/24 11:48 1 STRIP Insulin Human Regular ACHS SC 06/05/24 17:00 Dextrose 50 ml UD PRN IV 06/05/24 15:45 Ondansetron HCl 4 mg Q4HP PRN IV 06/05/24 15:45 Acetaminophen 650 mg Q6HP PRN PO 06/05/24 15:45 Nitroglycerin 0.4 mg Q5MINP PRN SL 06/05/24 15:45 Morphine Sulfate 2 mg Q30M PRN IV 06/05/24 15:45 Nystatin 5 ml QID MT 06/05/24 18:00 06/05/24 18:53 5 ML Ascorbic Acid 1,000 mg DAILY PO 06/06/24 10:00 06/06/24 10:29 1,000 MG Atenolol 25 mg DAILY PO 06/06/24 10:00 06/06/24 10:30 25 MG Atorvastatin Calcium 20 mg HS PO 06/05/24 22:00 Levothyroxine Sodium 50 mcg QAM PO 06/06/24 07:00 06/06/24 06:01 50 MCG Cholecalciferol 2,000 unit DAILY PO 06/06/24 10:00 06/06/24 10:29 2,000 UNIT Enoxaparin Sodium 60 mg Q12HR SC 06/05/24 22:00 06/06/24 10:28 60 MG Pantoprazole Sodium 40 mg DAILY@0600 PO 06/07/24 06:00 Laboratory Results Laboratory Tests 06/06/24 04:56 Chemistry Test 06/06/24 04:56 Albumin 3.5 g/dL (3.2-4.8) Calcium Level 9.4 mg/dL (8.7-10.4) Total Protein 6.6 g/dL (5.7-8.2) Coagulation Test 06/06/24 04:56 Prothrombin Time 12.9 sec (9.3-11.8) H Prothrombin Time INR 1.24 (0.9-1.15) H Activated Partial Thromboplast Time 36.0 SEC (24.5-34.5) H LFT Test 06/06/24 04:56 Alanine Aminotransferase (ALT) 44 U/L (7-40) H Alkaline Phosphatase 107 U/L (46-116) Aspartate Amino Transferase (AST) 51 U/L (13-40) H Total Bilirubin 0.4 mg/dL (0.2-1.0) Urinalysis Test 06/05/24 16:30 Urine Color Light-yellow (Yellow) Urine Clarity Clear (Clear) Urine pH 5.5 (5.0-9.0) Urine Specific [place] 1.032 (1.001-1.035) Urine Protein Negative (Negative) Urine Ketones Negative (Negative) Urine Blood Negative /uL (Negative) Urine Nitrite Negative (Negative) Urine Bilirubin Negative (Negative) Urine Urobilinogen Normal mg/dL (Negative) Urine Leukocyte Esterase Negative /uL (Negative) Urine RBC 4 /hpf (0 - 4) Urine Microscopic WBC 8 /HPF (0-5) H Urine Squamous Epithelial Cells Few /hpf (<5) Urine Bacteria Few /hpf (None Seen) H Urine Glucose Normal mg/dL (Normal) Assessment/Plan Assessment/Plan A 74-year-old woman with known past medical history of hypertension, dyslipidemia, hypothyroidism, previous hospitalization at 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 She presented to the hospital with syncope and increasing shortness a breath for one day found to have 1. Acute hypoxic respiratory failure secondary to bilateral pulmonary embolism currently on nasal cannula at 3 L, saturation more than 92% 2. Bilateral pulmonary embolism with extensive burden in main pulmonary arteries with evidence of right heart strain, currently on therapeutic Lovenox 3. NSTEMI type 2 suspected secondary to acute pulmonary embolism 4. Left lower extremity DVT 5. Anterior abdominal collection suspect hematoma rales and abscess which is 7.6 X 6.5 X 2.9 cm and extending into the psoas muscle of at L4 level 6. Status post right hemicolectomy for mucinous adenocarcinoma 7. Recently treated pseudomembranous colitis 8. Recent history of intraperitoneal hematoma status post drainage -continue therapeutic Lovenox, risks benefits and alternatives of therapeutic Lovenox including life-threatening bleeding, disability explained to the patient and patient's daughter at bedside as well as . As there was no IR available to do the thrombectomy, patient needs higher level of care for urgent pulmonary thrombectomy because of symptomatic PE with recent passing out spell, this was explained to the patient's daughter in detail who understand and agreeable to plan. -[facility] Dr. Das accepted with the patient who is intervention radiologist, currently we are waiting for the ICU bed availability. Plan discussed with: Patient, Spouse, Daughter My Orders Orders - ASHANTI ISAAC MD Procedure Category Date Status Time Mrsa Screen MARTINE 06/06/24 In Process 06:06 * Cardiology Consult CONS 06/06/24 Transmitted 11:06 * Supervisor [facility] CONS 06/06/24 Transmitted Consult Date of Service: Jun 06, 2024 Billing Provider: ASHANTI ISAAC MD Common Visit Codes: NOT BILLABLE ASHANTI ISAAC MD Jun 06, 2024 13:49
--- NOTE | 2024-06-06 22:29 | DVHINCON2 ---
Date of service: Jun 06, 2024 Referring Physician Lily Ying NP Reason for Consultation Acute hypoxic respiratory failure, pulmonary embolism, deep venous thrombosis History of Present Illness A 74-year-old woman with PMHx including hx of DVT, hypertension, hyperlipidemia, C diff, colitis, appendiceal cancer, perforated appendicitis, colon cancer, and peritoneal bleed who presented to ED on 06/05/24 with c/o shortness of breath. Per daughter, pt was supposed to have a CT abdomen and pelvis done next week. 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 Patient had a right hematoma that was drained recently and was given antibiotics, in which she finished the course. PCP extended her dose of Flagyl for another 7 days from the initial 7 days, total of 14; and so far, she has finished 9 days of the 14. Patient also was given nystatin for thrush. She has been having positive C diff on and off recently. Patient does not use home oxygen. She was admitted for further care, and pulmonary consultation is requested for evaluation and management for acute hypoxic respiratory failure, PE and DVT. Review of Systems: 14-point review of systems negative unless otherwise noted above. Past Medical History: Hypertension, hyperlipidemia, hypothyroidism, colon cancer, C. diff, appendiceal cancer, perforated appendicitis, peritoneal bleed, hx of DVT. Past Surgical History: Appendectomy, right hemicolectomy Medications: Reviewed. Allergies: No known drug allergies. Family History: No family history of premature CAD. No family history of lung disorders. Social History: Nonsmoker. No alcohol or illicit drug use. Family History: Patient reports no known family medical history. Allergies: Coded Allergies: NO KNOWN ALLERGIES (Unverified , 10/23/09) Home Meds Active Scripts Vancomycin HCl (Vancomycin HCl) 250 Mg Cap, 250 MG PO QID, #40 CAP Prov:KEYA DUBOSE MD 04/28/24 Ciprofloxacin Hcl (Ciprofloxacin Hcl) 500 Mg Tab, 1 TAB PO BID, #10 TAB Prov:KEYA DUBOSE MD 04/28/24 Naloxone HCl (Narcan) 4 Mg/0.1 Ml Spr, 4 MG NA HEAD OF ICT, #2 SPRAY Prov:ASHANTI ISAAC MD 02/15/24 Reported Medications Levothyroxine Sodium (Levothyroxine Sodium) 50 Mcg Tab, 1 TAB PO DAILY 06/05/24 Mirtazapine (Mirtazapine Oral Disintegrating Tablet) 15 Mg Tab, 1 TAB PO 06/05/24 Iron W/ Vitamins (Geritol Complete) Complete Tab, 1 OR DAILY, TAB 04/16/24 Cholecalciferol (D3 2000) 2,000 Unit Cap, 2000 UNIT PO DAILY, CAP 04/16/24 Ascorbic Acid (VITAMIN C TABLET) 500 Mg Tb, 1000 MG PO DAILY, TAB 04/16/24 Atorvastatin Calcium (Lipitor) 20 Mg Tab, 20 MG PO DAILY, TAB 04/16/24 Levothyroxine Sodium (SYNTHROID TABLET) 50 Mcg Tb, 50 MCG PO DAILY, TAB 02/12/24 Atenolol (Atenolol) 25 Mg Tab, 1 TAB PO DAILY 02/03/20 Current Medications Current Medications Medications (Trade) Dose Ordered Sig/Nneka Route PRN Reason Start Time Stop Time Status Last Admin Heparin Sodium/ Dextrose 250 ml @ 10 mls/hr Q24H IV 06/06/24 00:30 06/05/24 17:33 DC Ascorbic Acid (Vitamin C Tablet) 1,000 mg DAILY PO 06/06/24 10:00 06/06/24 10:29 Atenolol (Tenormin Tablet) 25 mg DAILY PO 06/06/24 10:00 06/06/24 10:30 Levothyroxine Sodium (Synthroid Tablet) 50 mcg QAM PO 06/06/24 07:00 06/06/24 06:01 Cholecalciferol (Vitamin D3 Tablet) 2,000 unit DAILY PO 06/06/24 10:00 06/06/24 10:29 Pantoprazole Sodium (Protonix) 40 mg DAILY IV 06/06/24 10:00 06/06/24 08:13 DC Pantoprazole Sodium (Protonix Tablet) 40 mg DAILY@0600 PO 06/07/24 06:00 Vital Signs Vital Signs Date Time Temp Pulse Resp B/P (MAP) Pulse Ox O2 Delivery O2 Flow Rate FiO2 06/06/24 21:00 84 19 95 Nasal Cannula* 3 32 06/06/24 21:00 97.6 125/82 (96) 97.6 Physical Exam Gen.: Patient lying in bed in no apparent distress. On supplemental oxygen. Head: Normocephalic, atraumatic. Eyes: EOMI/PERRLA. Ears: Normal hearing. Normal anatomy. Neck/trachea: Trachea midline, supple. Nose: Normal external anatomy. Mouth: Moist mucous membranes. Chest: Decreased air entry bilaterally. No wheezing or rhonchi. Cardiovascular: Positive S1, positive S2. Regular rate and rhythm. Abdomen: Positive bowel sounds in all 4 quadrants. Soft, non-tender, non- distended. : Deferred. Rectal: Deferred. Skin: Warm, dry. Intact. Extremities: 2+ radial pulses bilaterally. No lower extremity edema. Neuro: Awake, alert, oriented x3. No gross motor or sensory deficits. Cranial nerves II through XII intact. Gait not assessed. Labs/Diagnostic Data Labs Test 06/06/24 11:34 06/06/24 04:56 06/05/24 16:30 06/05/24 13:07 Range/Units POC Glucose 157 H 70-106 mg/dl White Blood Count 9.0 # 4.4-10.8 10^3/uL Red Blood Count 3.74 L 4.0-5.20 10^6/uL Hemoglobin 10.8 L 12.2-16.2 g/dL Hematocrit 33.9 L 36.0-46.0 % Mean Corpuscular Volume 90.7 80.0-100.0 fL Mean Corpuscular Hemoglobin 29.0 28.0-32.0 pg Mean Corpuscular Hemoglobin Concent 32.0 32.0-36.0 g/dL Red Cell Distribution Width 21.1 H 11.8-14.3 % Platelet Count 196 140-450 10^3/uL Mean Platelet Volume 7.8 6.9-10.8 fL Neutrophils (%) (Auto) 61.4 37.0-80.0 % Lymphocytes (%) (Auto) 26.4 10.0-50.0 % Monocytes (%) (Auto) 11.3 0.0-12.0 % Eosinophils (%) (Auto) 0.4 0.0-7.0 % Basophils (%) (Auto) 0.5 0.0-2.0 % Neutrophils # (Auto) 5.5 1.6-8.6 10 ^3/uL Lymphocytes # (Auto) 2.4 0.4-5.4 10 ^3/uL Monocytes # (Auto) 1.0 0-1.3 10 ^3/uL Eosinophils # (Auto) 0 0-0.8 10 ^3/uL Basophils # (Auto) 0 0-0.2 10 ^3/uL Nucleated Red Blood Cells 0.0 % Prothrombin Time 12.9 H 9.3-11.8 sec Prothrombin Time INR 1.24 H 0.9-1.15 Activated Partial Thromboplast Time 36.0 H 24.5-34.5 SEC Sodium Level 143 136-145 mmol/L Potassium Level 3.8 3.5-5.1 mmol/L Chloride Level 110 H 98-107 mmol/L Carbon Dioxide Level 26 20-31 mmol/L Anion Gap 7 5-15 Blood Urea Nitrogen 14 9-23 mg/dL Creatinine 0.84 0.550-1.02 mg/dL Glomerular Filtration Rate Calc 73 >90 mL/min BUN/Creatinine Ratio 16.7 10.0-20.0 Serum Glucose 100 74-106 mg/dL Calcium Level 9.4 8.7-10.4 mg/dL Total Bilirubin 0.4 0.2-1.0 mg/dL Aspartate Amino Transferase (AST) 51 H 13-40 U/L Alanine Aminotransferase (ALT) 44 H 7-40 U/L Alkaline Phosphatase 107 46-116 U/L Troponin I High Sensitivity 1286 *H </=34 ng/L Total Protein 6.6 5.7-8.2 g/dL Albumin 3.5 3.2-4.8 g/dL Urine Color Light-yellow Yellow Urine Clarity Clear Clear Urine pH 5.5 5.0-9.0 Urine Specific [place] 1.032 1.001-1.035 Urine Protein Negative Negative Urine Ketones Negative Negative Urine Blood Negative Negative /uL Urine Nitrite Negative Negative Urine Bilirubin Negative Negative Urine Urobilinogen Normal Negative mg/dL Urine Leukocyte Esterase Negative Negative /uL Urine RBC 4 0 - 4 /hpf Urine Microscopic WBC 8 H 0-5 /HPF Urine Squamous Epithelial Cells Few <5 /hpf Urine Bacteria Few H None Seen /hpf Urine Glucose Normal Normal mg/dL Lactic Acid Level 1.7 0.4-2.0 mmol/L Test 06/05/24 11:30 Range/Units D-Dimer, Quantitative 15.44 H 0.0-0.49 mg/L FEU Hemoglobin A1c 5.1 <5.7 % A1C Magnesium Level 1.9 1.6-2.6 mg/dL B-Type Natriuretic Peptide 70.46 0-100 pg/mL Microbiology Date/Time Source Procedure Growth Status 06/06/24 06:06 Nose MRSA Screen - Final Complete 06/05/24 15:26 Blood Blood Culture - Preliminary NO GROWTH AFTER 24 HOURS OF INCUBATION. Resulted Assessment Impression: Acute hypoxic respiratory failure Dependence on supplemental oxygen Pulmonary embolism Deep venous thrombosis, left lower extremity Hx of COVID19 Plan: Supplemental oxygen 2 LPM NC Titrate to keep O2 sats above 92%. Taper O2 as tolerated. CT chest, abd-pelvis reveals extensive bilateral pulmonary emboli involving the right and left main pulmonary arteries, lobar, segmental and subsegmental branches of the upper and lower lobe pulmonary arteries. Evidence of right heart strain. No pulmonary infarct is seen. Status post right hemicolectomy with a large oblique abscess seen extending obl iquely from the inferior surface of the liver to the right psoas muscle at L4 level, measuring 7.6 x 6.5 x 2.9 cm. Recommend surgical or IR consultation for percutaneous drainage. Venous duplex of BLE revealed left lower extremity DVT. No DVT on the right. Anticoagulation for PE/DVT. Lovenox subcutaneously Continue antibiotics Nystatin for thrush Vitamin supplementation Note, pt is refusing medications Monitor renal function. Monitor electrolytes. Supplement as necessary. Monitor ins and outs. Plan for HLOC for thrombectomy evaluation. Prognosis: Poor given patient's multiple co-morbidities. Rest of plan per hospitalist and other consultants. Thank you, CYRUS Ying, for allowing me to participate in this patient's care. Further recommendations will depend on the patient's clinical course. Please do not hesitate to contact me if you have any questions or concerns. This medical document was created using an electronic medical record system with [employer] 3 dictation system. Although these documentations are being carefully reviewed, there may still be some phonetic and typographical changes. The errors are purely typographical, due to imperfection on the software program, and do not reflect any compromise in the patient's medical care. Plan discussed with: Other (RN/CYRUS Ying/) JOVANNA BAGLEY MD Jun 06, 2024 22:29
--- NOTE | 2024-06-06 23:49 | DVHPN2 ---
Consult Progress Note Subjective Other Systems: Patient was seen and evaluated in follow up. Patient reports feeling SOB and dizzy after using the restroom. Patient denies any chest pain or syncope. AST 51, ALT 44, TROP 1286. Telemetry reviewed. Objective vital signs Vital Sign Date Time Temp Pulse Resp B/P (MAP) Pulse Ox O2 Delivery O2 Flow Rate FiO2 06/06/24 12:00 76 19 121/77 (92) 97 06/06/24 07:45 98.7 98.7 06/06/24 07:45 Nasal Cannula* 3 32 Total Intake and Output 06/05/24 06/05/24 06/06/24 15:00 23:00 07:00 Intake Total 1100 ml 0 ml Balance 1100 ml 0 ml medications Current Medications Medications Dose Ordered Sig/Nneka Route Start Time Stop Time Status Last Admin Dose Admin Diagnostic Test (Pha) 1 strip ACHS 06/05/24 17:00 06/06/24 11:48 1 STRIP Insulin Human Regular ACHS SC 06/05/24 17:00 Dextrose 50 ml UD PRN IV 06/05/24 15:45 Ondansetron HCl 4 mg Q4HP PRN IV 06/05/24 15:45 Acetaminophen 650 mg Q6HP PRN PO 06/05/24 15:45 Nitroglycerin 0.4 mg Q5MINP PRN SL 06/05/24 15:45 Morphine Sulfate 2 mg Q30M PRN IV 06/05/24 15:45 Nystatin 5 ml QID MT 06/05/24 18:00 06/05/24 18:53 5 ML Ascorbic Acid 1,000 mg DAILY PO 06/06/24 10:00 06/06/24 10:29 1,000 MG Atenolol 25 mg DAILY PO 06/06/24 10:00 06/06/24 10:30 25 MG Atorvastatin Calcium 20 mg HS PO 06/05/24 22:00 Levothyroxine Sodium 50 mcg QAM PO 06/06/24 07:00 06/06/24 06:01 50 MCG Cholecalciferol 2,000 unit DAILY PO 06/06/24 10:00 06/06/24 10:29 2,000 UNIT Enoxaparin Sodium 60 mg Q12HR SC 06/05/24 22:00 06/06/24 10:28 60 MG Pantoprazole Sodium 40 mg DAILY@0600 PO 06/07/24 06:00 Examination: GENERAL:Normal, HEENT:Normal, NECK:Normal, LUNGS:Normal, CVS:Normal, ABDOMEN:Normal, MSK:Normal, SKIN:Normal, NEURO:Normal laboratory and microbiology Laboratory Tests 06/06/24 04:56 Test 06/06/24 04:56 Range/Units Serum Glucose 100 74-106 mg/dL Problem List/Assessment/Plan Problem List/Assessment/Plan NSTEMI. Acute hypoxic respiratory failure secondary to extensive bilateral pulmonary emboli. Rule out structural heart disease and RV strain. Left lower extremity DVT. Hypertension. Dyslipidemia. History of appendiceal cancer status post right hemicolectomy. Thyroid disease. Transaminitis. Acute kidney injury. Plan/Recommendation Continued all current supportive medical care. Patient has been seen by Dana Romero NP on my behalf, her and I discussed the plan with the patient. Transthoracic echocardiogram reveals EF 60%. Continue with therapeutic Lovenox. Current hemodynamically stable. Planned for thrombectomy procedure with Dr. Vega on saturday06/08/24. Informed consent discussed with patient and daughter at the bedside, in agreement with planned procedure. Continue with close cardiac surveillance. Additional plan as per the hospital course. Plan discussed with: Patient Date of Service: Jun 06, 2024 Billing Provider: SILVA QUINTANILLA MD Cardiology Common Codes: 29317-QCBAQFD INP/OBS CARE (High) Cardiology Consultation Codes: [id number] CONSULT <45MIN SILVA QUINTANILLA MD Jun 06, 2024 13:31
--- NOTE | 2024-06-07 02:14 | ECG ---
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
[2024-06-07] MEDS ORDERED: PANTOPRAZOLE 40 MG TAB PO SCH (06:00)
--- NOTE | 2024-06-07 15:47 | DVHDS2 ---
Discharge Summary Date of Admission Jun 05, 2024 at 15:40 Date of Discharge: Jun 06, 2024 Labs/Diagnostic Data: Laboratory Results Test 06/06/24 11:34 06/06/24 04:56 06/05/24 16:30 06/05/24 13:07 POC Glucose 157 mg/dl (70-106) White Blood Count 9.0 10^3/uL (4.4-10.8) Red Blood Count 3.74 10^6/uL (4.0-5.20) Hemoglobin 10.8 g/dL (12.2-16.2) Hematocrit 33.9 % (36.0-46.0) Mean Corpuscular Volume 90.7 fL (80.0-100.0) Mean Corpuscular Hemoglobin 29.0 pg (28.0-32.0) Mean Corpuscular Hemoglobin Concent 32.0 g/dL (32.0-36.0) Red Cell Distribution Width 21.1 % (11.8-14.3) Platelet Count 196 10^3/uL (140-450) Mean Platelet Volume 7.8 fL (6.9-10.8) Neutrophils (%) (Auto) 61.4 % (37.0-80.0) Lymphocytes (%) (Auto) 26.4 % (10.0-50.0) Monocytes (%) (Auto) 11.3 % (0.0-12.0) Eosinophils (%) (Auto) 0.4 % (0.0-7.0) Basophils (%) (Auto) 0.5 % (0.0-2.0) Neutrophils # (Auto) 5.5 10 ^3/uL (1.6-8.6) Lymphocytes # (Auto) 2.4 10 ^3/uL (0.4-5.4) Monocytes # (Auto) 1.0 10 ^3/uL (0-1.3) Eosinophils # (Auto) 0 10 ^3/uL (0-0.8) Basophils # (Auto) 0 10 ^3/uL (0-0.2) Nucleated Red Blood Cells 0.0 % Prothrombin Time 12.9 sec (9.3-11.8) Prothrombin Time INR 1.24 (0.9-1.15) Activated Partial Thromboplast Time 36.0 SEC (24.5-34.5) Sodium Level 143 mmol/L (136-145) Potassium Level 3.8 mmol/L (3.5-5.1) Chloride Level 110 mmol/L (98-107) Carbon Dioxide Level 26 mmol/L (20-31) Anion Gap 7 (5-15) Blood Urea Nitrogen 14 mg/dL (9-23) Creatinine 0.84 mg/dL (0.550-1.02) Glomerular Filtration Rate Calc 73 mL/min (>90) BUN/Creatinine Ratio 16.7 (10.0-20.0) Serum Glucose 100 mg/dL (74-106) Calcium Level 9.4 mg/dL (8.7-10.4) Total Bilirubin 0.4 mg/dL (0.2-1.0) Aspartate Amino Transferase (AST) 51 U/L (13-40) Alanine Aminotransferase (ALT) 44 U/L (7-40) Alkaline Phosphatase 107 U/L (46-116) Troponin I High Sensitivity 1286 ng/L (</=34) Total Protein 6.6 g/dL (5.7-8.2) Albumin 3.5 g/dL (3.2-4.8) Urine Color Light-yellow (Yellow) Urine Clarity Clear (Clear) Urine pH 5.5 (5.0-9.0) Urine Specific [place] 1.032 (1.001-1.035) Urine Protein Negative (Negative) Urine Ketones Negative (Negative) Urine Blood Negative /uL (Negative) Urine Nitrite Negative (Negative) Urine Bilirubin Negative (Negative) Urine Urobilinogen Normal mg/dL (Negative) Urine Leukocyte Esterase Negative /uL (Negative) Urine RBC 4 /hpf (0 - 4) Urine Microscopic WBC 8 /HPF (0-5) Urine Squamous Epithelial Cells Few /hpf (<5) Urine Bacteria Few /hpf (None Seen) Urine Glucose Normal mg/dL (Normal) Lactic Acid Level 1.7 mmol/L (0.4-2.0) Test 06/05/24 11:30 D-Dimer, Quantitative 15.44 mg/L FEU (0.0-0.49) Hemoglobin A1c 5.1 % A1C (<5.7) Magnesium Level 1.9 mg/dL (1.6-2.6) B-Type Natriuretic Peptide 70.46 pg/mL (0-100) Other Laboratory Tests 06/06/24 04:56 Brief Hx & Hospital Course: A 74-year-old female with known past medical history of hypertension, dyslipidemia, hypothyroidism, previous hospitalization at [facility] for perforated appendicitis with abscess which was not amenable for drainage - treated with IV antibiotics and resolved, history of C diff colitis which was treated; who was 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 She was recently hospitalized for intraperitoneal hematoma which was drained at [facility]. During the same admission she was found to have right lower extremity peroneal DVT but she had a hematoma so recommended to follow up as an outpatient with the PCP and Hematology so that anticoagulation can be started. She was recently seen at hematology is office had ultrasound of the lower extremity was done report was pending. She presented to the hospital with syncope and increasing shortness a breath for one day found to have acute hypoxic respiratory failure secondary to bilateral extensive PE, on nasal cannula at 3 L was saturating more than 92%. Patient was getting short of breath on minimal exertion in the bed. Eventually strict better nurse was recommended and patient was started on Lovenox keeping in view of she is still has intraperitoneal hematoma. Patient's elevated troponin was suspected secondary to acute pulmonary embolism. Patient also has a left lower extremity DVT. Patient is still has abnormal abdominal collection which impacted hematoma which is 7.6X 6.9X 2.9 CM EXTENDING INTO PSOAS MUSCLE AT L4 LEVEL. IR WAS CONSULTED [facility] BUT THEY WERE NOT AVAILABLE FOR THE PULMONARY THROMBECTOMY UNTIL SATURDAY. BECAUSE OF PATIENT'S SYMPTOM AND RIGHT HEART STRAIN AND EXTENSIVE BURDEN OF BILATERAL PULMONARY EMBOLISM ME AND GENERAL SURGERY RECOMMENDED HIGHER LEVEL OF CARE FOR URGENT PULMONARY THROMBECTOMY. PATIENT WAS ACCEPTED BY COUPLE OF FACILITIES AND EVENTUALLY WAS TRANSFERRED TO [facility] ON 06/06. DOCTORS WHO ARE ACCEPTING THE PATIENT AT [facility] WAS DR. CEDILLO INTERVENTION RADIOLOGY. ALSO PATIENT WAS ACCEPTED AT [facility] BY THE IR WELL PRIMARY HOSPITALIST DR. LOERA. FULL REPORT WAS GIVEN TO DR. LOERA OVER THE PHONE. PATIENT AND PATIENT'S FAMILY MEMBERS INCLUDING DAUGHTER AT BEDSIDE AGREES TO CURRENT PLAN OF CARE. RISK OF DISABILITY ASSOCIATED WITH TRANSFER EXPLAINED TO THE PATIENT AND FAMILY MEMBER THEY UNDERSTAND VERBALIZED UNDERSTANDING AND AGREEABLE TO PLAN. I REQUESTED CHOICE BRAIDED RUG MAKER TO PROVIDE ACLS AMBULANCE DURING THE TRANSFER TO HIGHER LEVEL OF CARE. Condition at Discharge: Stable Final Diagnosis/Problems List Acute hypoxic respiratory failure secondary to bilateral extensive PE Extensive bilateral pulmonary embolism need urgent pulmonary thrombectomy Discharge Disposition: Acute Care Facility SNF Discharge Will this Physician continue t: No Discharge Instruct/Medications Diet: Cardiac 2g Na,low cholest Activity: Bed rest Follow Up/Referral: Follow up at higher level of care for pulmonary thrombectomy Medications: Therapeutic Lovenox Discharge Statement: "Patient was advised to return to the ER or call 911 if any headaches, dizziness, shortness of breath, chest pain, abdominal pain, bleeding, fevers, or worsening of medical condition. Patient was counseled about treatment plan, medications, possible side effects, patientverbalized understanding. All questions were answered to the best of my ability. This discharge took greater then 30 minutes in planning, reviewing documentation, counseling the patient, and discussing with other team members." ASSESSMENT ASSESSMENT Assessment Acute hypoxic respiratory failure secondary to bilateral extensive PE Extensive bilateral pulmonary embolism need urgent pulmonary thrombectomy Date of Service: Jun 06, 2024 Billing Provider: ASHANTI ISAAC MD Common Visit Codes: NOT BILLABLE ASHANTI ISAAC MD Jun 07, 2024 15:47
--- NOTE | 2024-06-08 14:16 | ECG ---
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
--- NOTE | 2024-06-08 14:17 | ECG ---
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
== END 2024-06-06 21:10 | disposition short-term general hospital (02) | DRG 175 ==
LOC: EDBD 11:24 → ER 11:30 → EDUNIT# 11:30 → OVERFLOW 15:40
DX: I26.99 Other pulmonary embolism without acute cor pulmonale (principal); I21.A1 Myocardial infarction type 2; J96.01 Acute respiratory failure with hypoxia; B37.0 Candidal stomatitis; N17.9 Acute kidney failure, unspecified; E87.20 Acidosis, unspecified; I10 Essential (primary) hypertension; E78.5 Hyperlipidemia, unspecified; E03.9 Hypothyroidism, unspecified; I45.10 Unspecified right bundle-branch block; Z90.49 Acquired absence of other specified parts of digestive tract; Z86.19 Personal history of other infectious and parasitic diseases; Z86.16 Personal history of COVID-19; Z85.038 Personal history of other malignant neoplasm of large intestine; Z86.718 Personal history of other venous thrombosis and embolism; Z99.81 Dependence on supplemental oxygen; Z79.899 Other long term (current) drug therapy
CPT/HCPCS: 36415; 71045; 71260; 74177; 80053; 81001; 82962; 83036; 83605; 83735; 83880; 84484; 85025; 85379; 85610; 85730; 87040; 87081; 93005; 93306; 93970; 96365; 96366; 96372; 99291; G0378; J2543